=== PATIENT | male | born 1955 | race Caucasian/White ===

== ENCOUNTER 2017-05-17 15:44 | Emergency (ER) | payer BC, OTHER ==
--- NOTE | 2017-05-17 16:43 | ER Document Report ---
ED Extremity Problem, Lower - General Chief Complaint: Leg Pain Stated Complaint: PAIN IN RIGHT LEG Time Seen by Provider: 05/17/17 16:35 Mode of Arrival: Wheelchair Information source: Patient TRAVEL OUTSIDE OF THE [place] IN LAST 30 DAYS: No - HPI Patient complains to provider of: Pain Location: Leg - pt. with h/o prior blood clot R leg with stent placed several yrs. ago with c/o recurrent pain in same leg over the past 2-3 days. Denies h/ o trauma - Related Data Allergies/Adverse Reactions: No Known Allergies Allergy (Verified 05/17/17 16:03) Past Medical History - General Information source: Patient - Social History Smoking Status: Never Smoker Cigarette use (# per day): No Chew tobacco use (# tins/day): No Smoking Education Provided: No Family History: Reviewed & Not Pertinent - Past Medical History Cardiac Medical History: Reports: Hx Hypertension Denies: Hx Coronary Artery Disease, Hx Heart Attack, Hx Hypercholesterolemia Pulmonary Medical History: Denies: Hx Asthma, Hx Bronchitis, Hx COPD, Hx Pneumonia Neurological Medical History: Denies: Hx Cerebrovascular Accident, Hx Seizures Renal/ Medical History: Denies: Hx Peritoneal Dialysis GI Medical History: Denies: Hx Hepatitis, Hx Hiatal Hernia, Hx Ulcer Musculoskeltal Medical History: Reports Hx Arthritis Infectious Medical History: Denies: Hx Hepatitis Past Surgical History: Reports: Hx Orthopedic Surgery - R knee. Denies: Hx Open Heart Surgery, Hx Pacemaker - Immunizations Hx Diphtheria, Pertussis, Tetanus Vaccination: No Review of Systems - Review of Systems Constitutional: No symptoms reported EENT: No symptoms reported Cardiovascular: No symptoms reported Respiratory: No symptoms reported Gastrointestinal: No symptoms reported Musculoskeletal: See HPI, Leg swelling Physical Exam - Vital signs Vitals: Temp Pulse Resp BP Pulse Ox 98.9 F 90 20 151/86 H 96 05/17/17 16:03 05/17/17 16:03 05/17/17 16:03 05/17/17 16:03 05/17/17 16:03 - General General appearance: Appears well In distress: None - Respiratory Respiratory status: No respiratory distress Breath sounds: Normal - Extremities General upper extremity: Normal inspection General lower extremity: Other - there is TTP of the R calf diffusely with minimal STS. There is no erythema. Pt. with FROM; N/V intact Course - Vital Signs Vital signs: Temp Pulse Resp BP Pulse Ox 98.9 F 90 20 151/86 H 96 05/17/17 16:03 05/17/17 16:03 05/17/17 16:03 05/17/17 16:03 05/17/17 16:03 - Diagnostic Test Radiology reviewed: Reports reviewed - Doppler neg for DVT Discharge - Discharge Clinical Impression: Leg pain Qualifiers: Laterality: right Qualified Code(s): M79.604 - Pain in right leg Condition: Stable Additional Instructions: rest, take meds as prescribed, return if worse Prescriptions: Etodolac [Lodine] 400 mg PO BID #14 tablet Forms: Return to Work Referrals: TRICIA CORTEZ DO [NO LOCAL MD] - Follow up as needed
[2017-05-17 17:53] VITALS: BP 136/82
--- NOTE | 2017-05-17 19:09 | RADIOLOGY REPORT (SQ) ---
EXAM DESCRIPTION: VENOUS UNILATERAL LOWER COMPLETED DATE/TIME: 05/17/2017 6:58 pm REASON FOR STUDY: Pain R leg COMPARISON: None. TECHNIQUE: Dynamic and static story scale and color images acquired of the right leg venous system. S elected spectral images acquired with additional compression and augmentation maneuvers. The contrala teral common femoral vein and saphenofemoral junction were also imaged. Images stored on PACS. LIMITATIONS: None. FINDINGS: COMMON FEMORAL: Normal phasicity, compression and augmentation. No visualized echogenic ma terial on story scale. No defects on color images. FEMORAL: Normal compression and augmentation. No visualized echogenic material on story scale. No defe cts on color images. POPLITEAL: Normal compression, augmentation. No visualized echogenic material on story scale. No defec ts on color images. CALF VESSELS: Normal compression, augmentation. No visualized echogenic material on story scale. No de fects on color images. GSV and SSV: Normal compression, augmentation. No visualized echogenic material on story scale. No def ects on color images. ANY DEEP VENOUS INSUFFICIENCY: Not evaluated. ANY EVIDENCE OF POPLITEAL CYST: No. OTHER: No other significant finding. CONTRALATERAL COMMON FEMORAL VEIN AND SAPHENOFEMORAL JUNCTION: Normal phasicity, compression and augmentation. No visualized echogenic material on story scale. No de fects on color images. IMPRESSION: NO EVIDENCE OF DVT OR SVT IN THE RIGHT LEG. TECHNICAL DOCUMENTATION: JOB ID: [id number] [employer]- All Rights Reserved
== END 2017-05-17 17:52 | disposition home or self-care (01) ==
LOC: ER 15:44
DX: M79.604 Pain in right leg (principal); M79.89 Other specified soft tissue disorders; Z86.718 Personal history of other venous thrombosis and embolism; Z95.820 Peripheral vascular angioplasty status with implants and grafts; I10 Essential (primary) hypertension
CPT/HCPCS: 93971; 99283

== ENCOUNTER 2018-03-04 12:51 | Emergency (ER) | payer BC, OTHER ==
[2018-03-04] MEDS ORDERED: ACETAMINOPHEN 325 MG TABLET PO ONE (13:20)
--- NOTE | 2018-03-04 13:24 | ER Document Report ---
ED Medical Screen (RME) - General Chief Complaint: Leg Pain Stated Complaint: RIGHT LEG PAIN Time Seen by Provider: 03/04/18 13:16 Notes: RAPID MEDICAL EVALUATION DISCLOSURE I have seen this patient as part of a Rapid Medical Evaluation and, if applicable, placed any initially appropriate orders. The patient will be seen and fully evaluated, including a full history and physical exam, by a provider ( in Main ED or Fast Track) when a room becomes available. 52-year-old male here with complaints of right knee pain and swelling ongoing for the past 10 hours. States that he woke up to go to the bathroom and that as soon as he stood up, he started to have the pain. Pain is worse with movement. Pain is improved with minimizing movement and, in fact, he does not have any pain at all when he is sitting down and is not bearing weight on that side. He then reports that "I always have swelling in the right knee". He does not have any calf pain but states that it feels a little bit tight when he straightens his leg out but not otherwise. He denies any chest pain shortness of breath. Denies traumatic injury or impact. EXAM No appreciable right knee tenderness Minimal to mild right knee swelling without erythema induration fluctuance drainage TRAVEL OUTSIDE OF THE [place] IN LAST 30 DAYS: No - Related Data Allergies/Adverse Reactions: No Known Allergies Allergy (Verified 03/04/18 12:52) Past Medical History - Social History Chew tobacco use (# tins/day): No Frequency of alcohol use: Social Drug Abuse: None - Past Medical History Cardiac Medical History: Reports: Hx Hypertension Denies: Hx Coronary Artery Disease, Hx Heart Attack, Hx Hypercholesterolemia Pulmonary Medical History: Denies: Hx Asthma, Hx Bronchitis, Hx COPD, Hx Pneumonia Neurological Medical History: Denies: Hx Cerebrovascular Accident, Hx Seizures Renal/ Medical History: Denies: Hx Peritoneal Dialysis GI Medical History: Denies: Hx Hepatitis, Hx Hiatal Hernia, Hx Ulcer Musculoskeltal Medical History: Reports Hx Arthritis Infectious Medical History: Denies: Hx Hepatitis Past Surgical History: Reports: Hx Orthopedic Surgery - R knee, Hx Vascular Surgery - Right leg. Denies: Hx Open Heart Surgery, Hx Pacemaker - Immunizations Hx Diphtheria, Pertussis, Tetanus Vaccination: No Physical Exam - Vital signs Vitals: Temp Pulse Resp BP Pulse Ox 98.6 F 79 17 123/72 95 03/04/18 12:56 03/04/18 12:56 03/04/18 12:56 03/04/18 12:56 03/04/18 12:56 Course - Vital Signs Vital signs: Temp Pulse Resp BP Pulse Ox 98.6 F 79 17 123/72 95 03/04/18 12:56 03/04/18 12:56 03/04/18 12:56 03/04/18 12:56 03/04/18 12:56 Doctor's Discharge - Discharge Referrals: MANASA HOPSON MD [Primary Care Provider] - Follow up as needed
--- NOTE | 2018-03-04 14:08 | RADIOLOGY REPORT (SQ) ---
EXAM DESCRIPTION: KNEE RIGHT 3 VIEWS COMPLETED DATE/TIME: 03/04/2018 1:40 pm REASON FOR STUDY: R knee pain COMPARISON: 07/11/2016 NUMBER OF VIEWS: Three views. TECHNIQUE: AP, lateral, and sunrise patella radiographic images acquired of the right knee. LIMITATIONS: None. FINDINGS: MINERALIZATION: Normal. BONES: No acute fracture or dislocation. No worrisome bone lesions. JOINT: Large suprapatellar knee joint effusion. High-grade medial compartment joint space narrowing with old nonunited medial edge medial tibial plateau fracture. Moderate to high-grade patellofemoral compartment joint space narrowing. Bulky patellofemoral compartment osteophytes SOFT TISSUES: Popliteal artery vascular stent OTHER: No other significant finding. IMPRESSION: Advanced osteoarthritis of the right knee TECHNICAL DOCUMENTATION: JOB ID: [id number] [employer]- All Rights Reserved Reading location - IP/workstation name: [email or web address]
[2018-03-04] MEDS ORDERED: HYDROCODONE/ACETAMINOPHEN 5-325 MG TABLET PO ONE (14:37)
--- NOTE | 2018-03-04 14:38 | ER Document Report ---
HPI - HPI Patient complains to provider of: Right knee swelling Onset: This morning Onset/Duration: Persistent Quality of pain: Achy Pain Level: 4 Context: Patient presents complaining of right knee pain and swelling for the past day. Patient complains of pain with walking. Patient does have a history of previous DVT in the right lower extremity is concerned about this today. Patient denies any injury. Associated Symptoms: Other - Right leg pain. denies: Chest pain, Nonproductive cough, Productive cough Exacerbated by: Standing, Movement, Walking Relieved by: Denies Similar symptoms previously: Yes Recently seen / treated by doctor: No - ROS ROS below otherwise negative: Yes Systems Reviewed and Negative: Yes All other systems reviewed and negative - CONSTITUTIONAL Constitutional: DENIES: Fever, Chills - CARDIOVASCULAR Cardiovascular: DENIES: Chest pain - RESPIRATORY Respiratory: DENIES: Trouble Breathing, Coughing - GASTROINTESTINAL Gastrointestinal: DENIES: Nausea - MUSCULOSKELETAL Musculoskeletal: REPORTS: Extremity pain, Swelling - DERM Skin Color: Normal Skin Problems: None Past Medical History - General Information source: Patient - Social History Smoking Status: Current Every Day Smoker Chew tobacco use (# tins/day): No Smoking Education Provided: Yes Frequency of alcohol use: Social Drug Abuse: None Occupation: Retail Lives with: Spouse/Significant other Family History: Reviewed & Not Pertinent Patient has suicidal ideation: No Patient has homicidal ideation: No - Past Medical History Cardiac Medical History: Reports: Hx Hypertension Denies: Hx Coronary Artery Disease, Hx Heart Attack, Hx Hypercholesterolemia Pulmonary Medical History: Denies: Hx Asthma, Hx Bronchitis, Hx COPD, Hx Pneumonia Neurological Medical History: Denies: Hx Cerebrovascular Accident, Hx Seizures Renal/ Medical History: Denies: Hx Peritoneal Dialysis GI Medical History: Denies: Hx Hepatitis, Hx Hiatal Hernia, Hx Ulcer Musculoskeltal Medical History: Reports Hx Arthritis Infectious Medical History: Denies: Hx Hepatitis Past Surgical History: Reports: Hx Orthopedic Surgery - R knee, Hx Vascular Surgery - Right leg. Denies: Hx Open Heart Surgery, Hx Pacemaker - Immunizations Hx Diphtheria, Pertussis, Tetanus Vaccination: No Vertical Provider Document - CONSTITUTIONAL Agree With Documented VS: Yes Exam Limitations: No Limitations General Appearance: WD/WN, No Apparent Distress - INFECTION CONTROL TRAVEL OUTSIDE OF THE [place] IN LAST 30 DAYS: No - HEENT HEENT: Atraumatic, Normocephalic - NECK Neck: Normal Inspection - RESPIRATORY Respiratory: Breath Sounds Normal, No Respiratory Distress - CARDIOVASCULAR Cardiovascular: Regular Rate, Regular Rhythm Pulses: Normal: Dorsalis pedis - MUSCULOSKELETAL/EXTREMETIES Musculoskeletal/Extremeties: MAEW, FROM, Tender - NEURO Level of Consciousness: Awake, Alert, Appropriate Motor/Sensory: No Motor Deficit - DERM Integumentary: Warm, Dry, No Rash Notes: Normal skin color and temperature overlying joint Course - Vital Signs Vital signs: Temp Pulse Resp BP Pulse Ox 98.6 F 79 17 123/72 95 03/04/18 12:56 03/04/18 12:56 03/04/18 12:56 03/04/18 12:56 03/04/18 12:56 - Diagnostic Test Radiology reviewed: Reports reviewed Procedures - Immobilization Right Knee Pre-Proc Neuro Vasc Exam: Normal Immobilizer type: Jesu wrap Performed by: PCT Post-Proc Neuro Vasc Exam: Normal Alignment checked and good: Yes Discharge - Discharge Clinical Impression: Arthritis Right knee pain Qualifiers: Chronicity: unspecified Qualified Code(s): M25.561 - Pain in right knee Condition: Stable Disposition: HOME, SELF-CARE Instructions: Jesu Wrap ([facility]), Arthritis ([facility]), Oral Narcotic Medication ([facility]) Additional Instructions: Return immediately for any new or worsening symptoms Followup with your primary care provider, call tomorrow to make a followup appointment Follow-up with orthopedics for further evaluation, call for an appointment Prescriptions: Hydrocodone/Acetaminophen [[place] 5-325 Tablet] 1 each PO Q6 PRN #10 tablet PRN Reason: Forms: Return to Work Referrals: MANASA HOPSON MD [Primary Care Provider] - Follow up as needed [facility] [Provider Group] - Follow up as needed
--- NOTE | 2018-03-04 16:40 | RADIOLOGY REPORT (SQ) ---
EXAM DESCRIPTION: VENOUS UNILATERAL LOWER COMPLETED DATE/TIME: 03/04/2018 4:29 pm REASON FOR STUDY: RLE pain, hx DVT in past COMPARISON: None. TECHNIQUE: Dynamic and static story scale and color images acquired of the right leg venous system. S elected spectral images acquired with additional compression and augmentation maneuvers. The contrala teral common femoral vein and saphenofemoral junction were also imaged. Images stored on PACS. LIMITATIONS: None. FINDINGS: COMMON FEMORAL: Normal phasicity, compression and augmentation. No visualized echogenic ma terial on story scale. No defects on color images. FEMORAL: Normal compression and augmentation. No visualized echogenic material on story scale. No defe cts on color images. POPLITEAL: Normal compression, augmentation. No visualized echogenic material on story scale. No defec ts on color images. CALF VESSELS: Normal compression, augmentation. No visualized echogenic material on story scale. No de fects on color images. GSV and SSV: Normal compression, augmentation. No visualized echogenic material on story scale. No def ects on color images. ANY DEEP VENOUS INSUFFICIENCY: Not evaluated. ANY EVIDENCE OF POPLITEAL CYST: No. OTHER: No other significant finding. CONTRALATERAL COMMON FEMORAL VEIN AND SAPHENOFEMORAL JUNCTION: Normal phasicity, compression and augmentation. No visualized echogenic material on story scale. No de fects on color images. IMPRESSION: NO EVIDENCE DVT OR SVT IN THE RIGHT LEG. TECHNICAL DOCUMENTATION: JOB ID: [id number] [employer]- All Rights Reserved Reading location - IP/workstation name: [email or web address]
[2018-03-04 17:23] VITALS: BP 104/73
== END 2018-03-04 17:30 | disposition home or self-care (01) ==
LOC: ER 12:51
DX: M25.461 Effusion, right knee (principal); M17.11 Unilateral primary osteoarthritis, right knee; F17.200 Nicotine dependence, unspecified, uncomplicated; I10 Essential (primary) hypertension; Z86.718 Personal history of other venous thrombosis and embolism
CPT/HCPCS: 93971; 99284

== ENCOUNTER 2019-10-13 11:25 | Inpatient (IN) | payer BC, OTHER ==
[2019-10-13] MEDS ORDERED: IPRATROPIUM/ALBUTEROL 0.5-2.5 MG/3 ML AMPUL NEB ONE (12:30)
--- NOTE | 2019-10-13 12:32 | ER Document Report ---
ED Medical Screen (RME) - General Chief Complaint: Leg Pain Stated Complaint: RIGHT LEG PAIN/LOWER BACK PAIN Time Seen by Provider: 10/13/19 12:26 Primary Care Provider: MANASA HOPSON MD [Primary Care Provider] - Follow up as needed Notes: HPI: 64-year-old male presenting with multiple complaints. Patient complains of coughing and wheezing that have been an ongoing issue since he quit smoking in June. Complains of some tightness in the chest with coughing episodes. No fever. Patient also complaining of 1 month of upper abdominal discomfort. States that initially it would occur after eating. Patient states that in the last 2 weeks it has been more constant but does worsen still with eating. No history of abdominal surgeries. No diarrhea no vomiting. Patient also complaining of right hip and thigh pain over the last several weeks worse with walking or weightbearing. I have greeted and performed a rapid initial assessment of this patient. A comprehensive ED assessment and evaluation of the patient, analysis of test results and completion of the medical decision making process will be conducted by additional ED providers PHYSICAL EXAMINATION: GENERAL: Well-appearing, well-nourished and in mild acute distress. HEAD: Atraumatic, normocephalic. EYES: sclera anicteric, conjunctiva are normal. ENT: Moist mucous membranes. NECK: Normal range of motion LUNGS: Normal work of breathing, expiratory wheezing in all lung ramirez HEART: 2+ radial pulses bilaterally, mild tachycardia ABD: limited by positioning for exam in triage. Mild tenderness in the right and left upper quadrants on palpation EXTREMITIES: no pitting or edema. No cyanosis. NEUROLOGICAL: No focal neurological deficits. Moves all extremities spontaneously and on command. PSYCH: Normal mood, normal affect. SKIN: Warm, Dry, normal turgor, no rashes or lesions noted. TRAVEL OUTSIDE OF THE [place] IN LAST 30 DAYS: No - Related Data Allergies/Adverse Reactions: No Known Allergies Allergy (Verified 03/04/18 12:52) Past Medical History - Social History Frequency of alcohol use: None Drug Abuse: None - Past Medical History Cardiac Medical History: Reports: Hx Hypertension Denies: Hx Coronary Artery Disease, Hx Heart Attack, Hx Hypercholesterolemia Pulmonary Medical History: Denies: Hx Asthma, Hx Bronchitis, Hx COPD, Hx Pneumonia Neurological Medical History: Denies: Hx Cerebrovascular Accident, Hx Seizures Renal/ Medical History: Denies: Hx Peritoneal Dialysis GI Medical History: Denies: Hx Hepatitis, Hx Hiatal Hernia, Hx Ulcer Musculoskeltal Medical History: Reports Hx Arthritis Infectious Medical History: Denies: Hx Hepatitis Past Surgical History: Reports: Hx Orthopedic Surgery - R knee, Hx Vascular Surgery - Right leg. Denies: Hx Open Heart Surgery, Hx Pacemaker - Immunizations Hx Diphtheria, Pertussis, Tetanus Vaccination: No Physical Exam - Vital signs Vitals: Temp Pulse Resp BP Pulse Ox 98.5 F 105 H 16 183/108 H 94 10/13/19 11:58 10/13/19 11:58 10/13/19 11:58 10/13/19 11:58 10/13/19 11:58 Course - Vital Signs Vital signs: Temp Pulse Resp BP Pulse Ox 98.5 F 105 H 16 183/108 H 94 10/13/19 11:58 10/13/19 11:58 10/13/19 11:58 10/13/19 11:58 10/13/19 11:58 Doctor's Discharge - Discharge Referrals: MANASA HOPSON MD [Primary Care Provider] - Follow up as needed
[2019-10-13 13:17] LABS: ABSOLUTE BASOPHILS # (AUTO) 0.1 10^3/uL (0.0-0.2); ABSOLUTE EOSINOPHILS # (AUTO) 0.1 10^3/uL (0.0-0.6); ABSOLUTE LYMPHOCYTES (AUTO) 1.2 10^3/uL (0.5-4.7); ABSOLUTE MONOCYTES (AUTO) 0.9 10^3/uL (0.1-1.4); ABSOLUTE NEUT (AUTO) 5.6 10^3/uL (1.7-8.2); BASOPHILS % (AUTO) 0.7 % (0-2); EOSINOPHILS % (AUTO) 1.8 % (0-6); HEMATOCRIT 45.5 % (37.9-51.0); HEMOGLOBIN 15.2 g/dL (13.5-17.0); LYMPHOCYTES % (AUTO) 14.8 % (13-45); MEAN CORPUSCULAR HEMOGLOBIN 31.9 pg (27.0-33.4); MEAN CORPUSCULAR HGB CONC 33.5 g/dL (32.0-36.0); MEAN CORPUSCULAR VOLUME 95 fl (80-97); MONOCYTES % (AUTO) 11.2 % (3-13); PLATELET COUNT 293 10^3/uL (150-450); RED BLOOD COUNT 4.78 10^6/uL (4.35-5.55); RED CELL DISTRIBUTION WIDTH 13.6 % (11.5-14.0); SEGMENTED NEUTROPHILS % (AUTO) 71.5 % (42-78); TOTAL CELLS COUNTED % (AUTO) 100 %; WHITE BLOOD COUNT 7.9 10^3/uL (4.0-10.5)
[2019-10-13 13:22] LABS: APPEARANCE,URINE CLEAR; BILIRUBIN,URINE NEGATIVE (NEGATIVE); COLOR,URINE YELLOW; GLUCOSE, URINE NEGATIVE (NEGATIVE); KETONES,URINE NEGATIVE (NEGATIVE); LEUKOCYTE ESTERASE,URINE NEGATIVE (NEGATIVE); NITRITE,URINE NEGATIVE (NEGATIVE); PROTEIN,URINE 30 mg/dL (NEGATIVE); URINE SPECIFIC GRAVITY 1.019
[2019-10-13 13:34] LABS: ALBUMIN 4.3 g/dL (3.5-5.0); ALKALINE PHOSPHATASE 122 U/L (38-126); ANION GAP 7 (5-19); ASPARTATE AMINO TRANSFERASE 27 U/L (17-59); BILIRUBIN,TOTAL 0.6 mg/dL (0.2-1.3); BLOOD UREA NITROGEN 14 mg/dL (7-20); CALCIUM 9.7 mg/dL (8.4-10.2); CARBON DIOXIDE 33 mmol/L (22-30); CHLORIDE 99 mmol/L (98-107); GLUCOSE 100 mg/dL (75-110); POTASSIUM 5.5 mmol/L (3.6-5.0); TOTAL PROTEIN 7.5 g/dL (6.3-8.2)
--- NOTE | 2019-10-13 13:40 | RADIOLOGY REPORT (SQ) ---
EXAM DESCRIPTION: CHEST 2 VIEWS COMPLETED DATE/TIME: 10/13/2019 1:20 pm REASON FOR STUDY: cough COMPARISON: 02/07/2012 EXAM PARAMETERS: NUMBER OF VIEWS: two views TECHNIQUE: Digital Frontal and Lateral radiographic views of the chest acquired. RADIATION DOSE: NA LIMITATIONS: none FINDINGS: LUNGS AND PLEURA: Subsegmental airspace disease posterior costophrenic angle, probably the left lower lobe. There is a background of chronic interstitial lung disease. No effusions. MEDIASTINUM AND HILAR STRUCTURES: PE HEART AND VASCULAR STRUCTURES: Heart normal size. No evidence for failure. BONES: No acute findings. HARDWARE: None in the chest. OTHER: No other significant finding. IMPRESSION: Left lower lobe pneumonia. TECHNICAL DOCUMENTATION: JOB ID: [id number] [employer]- All Rights Reserved Reading location - IP/workstation name: [email or web address]
[2019-10-13 13:46] LABS: NT PRO BNP 1190 pg/mL (<125)
[2019-10-13 13:51] LABS: TROPONIN I < 0.012 ng/mL
--- NOTE | 2019-10-13 15:42 | RADIOLOGY REPORT (SQ) ---
EXAM DESCRIPTION: HIP RIGHT AP/LATERAL COMPLETED DATE/TIME: 10/13/2019 2:06 pm REASON FOR STUDY: hip pain. Right hip pain. COMPARISON: CT lumbar spine same date. NUMBER OF VIEWS: Two views. TECHNIQUE: AP pelvis and additional frog-leg view of the right hip. LIMITATIONS: None. FINDINGS: MINERALIZATION: Normal. RIGHT HIP: No fracture or dislocation. The lytic bone lesions seen on prior CT are not detectable on radiograph. There is joint space narrowing with small marginal osteophytes. LEFT HIP: Joint space narrowing with marginal osteophytosis and subchondral sclerosis at the femoroac etabular joint. No acute fracture. Lytic bone lesions previously described on CT are not definitely identified on radiograph. PUBIS AND ISCHIUM: Previously described lytic bone lesions on CT are not definitely identified on rad iograph. PELVIS: Previously described lytic bone lesions on CT are not definitely identified on radiograph. SACRUM: Previously described lytic bone lesions on CT are not definitely identified on radiograph. LOWER LUMBAR SPINE: No fracture or dislocation. Previously described lytic bone lesions are not yessi rly identified on radiograph. No significant disc disease. SOFT TISSUES: No findings. OTHER: No other significant finding. IMPRESSION: 1. No acute fracture or dislocation of the pelvis or hips. 2. Moderate osteoarthritis bilateral femoroacetabular joints. 3. Previously described lytic bone lesions in the sacrum, iliac bones, and lower lumbar spine are rad iographically occult. COMMENT: Findings discussed with Dr. Evans on 10/13/2019 at 1534 hours. TECHNICAL DOCUMENTATION: JOB ID: [id number] [employer]- All Rights Reserved Reading location - IP/workstation name: [email or web address]
--- NOTE | 2019-10-13 15:44 | RADIOLOGY REPORT (SQ) ---
EXAM DESCRIPTION: CT LUMBAR SPINE WITHOUT COMPLETED DATE/TIME: 10/13/2019 1:51 pm REASON FOR STUDY: right sciatica. Cough. Right hip pain. COMPARISON: Chest radiograph same date. Right hip radiograph same date. Chest radiograph, 2. TECHNIQUE: Axial images acquired through the lumbar spine without intravenous contrast. Images revi ewed with lung, soft tissue and bone windows. Reconstructed coronal and sagittal MPR images reviewed . All images stored on PACS. All CT scanners at this facility use dose modulation, iterative reconstruction, and/or weight based d osing when appropriate to reduce radiation dose to as low as reasonably achievable (ALARA). [facility]: Dose Right [facility]: CareDose [facility]: Dose Right [facility]: Teradose 4D [facility]: [employer] RADIATION DOSE: mGy. LIMITATIONS: None. FINDINGS: SEGMENTATION: Normal. No transitional anatomy. ALIGNMENT: Normal. VERTEBRAL BODIES: There is partial visualization of a age-indeterminate compression fracture of the T 12 vertebral body. On axial images, there is a permeative appearance of the T12 vertebral body with associated soft tissue component extending into the paraspinous process suggestive of an underlying l ytic bone lesion leading to pathologic fracture. No retropulsed fracture fragments. The lumbar vert ebral bodies are intact with no loss of intervertebral body height. Chronic pars interarticularis de fects at L5 with 1.3 cm of anterolisthesis L5 on S1. Mixed lucent and sclerotic 2.1 cm lesion in the left sacrum with rings and arcs type central calcifications, suggestive an enchondroma or low grade chondrosarcoma. Indeterminate mixed lytic and sclerotic lesion at the central sacrum between the S1 foramen measures 3.4 x 3.3 cm, with some central calcification but predominantly lucent appearance an d ill-defined margins, somewhat suspicious. There is a highly suspicious lytic bone lesion measuring 1.7 x 1.8 cm at the right iliac bone extending to the right sacroiliac joint with cortical destructi on and extramedullary extension of soft tissue. Similar expansile lytic bone lesion at the left pedi ankit measures 1.5 cm with extreme thinning of the lateral cortex and slight extra medullary extension of soft tissue to the adjacent paraspinous region at L2. There is an indeterminate lucent lesion wit h sclerotic margins measuring 2.8 cm in the left iliac bone. A few scattered indeterminate sclerotic bone lesions in the iliac bones bilaterally. Indeterminate 9 mm lucent lesion in the right sacral ala, 7 mm lucent lesion in the posterior right iliac bone, and very subtle sclerotic bone lesion in t he left iliac wing. DISCS: Multilevel degenerative disc disease with loss of intervertebral disc height at multiple level s. Small disc bulge at L4-L5 without significant spinal canal stenosis. HARDWARE: None in the spine. VISUALIZED RIBS: No fractures. SOFT TISSUES: There is a partially calcified exophytic 1.9 cm right renal cortical lesion which is in determinate. OTHER: No other significant finding. IMPRESSION: 1. Acute probable pathologic fracture of T12. No retropulsed fracture fragments. 2. 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 COMMENT: Findings discussed with Dr. Evans on 10/13/2019 at 1534 hours TECHNICAL DOCUMENTATION: JOB ID: [id number] Quality ID # [id number]: Final reports with documentation of one or more dose reduction techniques (e.g., Au tomated exposure control, adjustment of the mA and/or kV according to patient size, use of iterative reconstruction technique) 2010 [facility]- All Rights Reserved Reading location - IP/workstation name: [email or web address]
--- NOTE | 2019-10-13 16:14 | RADIOLOGY REPORT (SQ) ---
EXAM DESCRIPTION: U/S ABDOMEN LIMITED W/O DOP COMPLETED DATE/TIME: 10/13/2019 3:51 pm REASON FOR STUDY: upper abd pain COMPARISON: None. TECHNIQUE: Dynamic and static grayscale images acquired of the abdomen and recorded on PACS. Additio nal selected color Doppler and spectral images recorded. LIMITATIONS: Limited visualization. Poor acoustical window FINDINGS: PANCREAS: Limited visualization. no masses seen LIVER: Normal size Mild fatty infiltration. No focal masses. LIVER VASCULATURE: Normal directional flow of the main portal vein and hepatic veins. GALLBLADDER: Sludge. No stones. Normal wall thickness. No pericholecystic fluid. ULTRASOUND-DETECTED KELLY'S SIGN: Negative. INTRAHEPATIC DUCTS AND COMMON DUCT: CBD and intrahepatic ducts normal caliber. No filling defects. INFERIOR VENA CAVA: Normal flow. AORTA: No aneurysm. RIGHT KIDNEY: Normal size. Normal echogenicity. No solid or suspicious masses. No hydronephros is. No calcifications. PERITONEAL AND RIGHT PLEURAL SPACE: No ascites or effusions. OTHER: No other significant findings. IMPRESSION: Fatty liver. No acute findings. TECHNICAL DOCUMENTATION: JOB ID: [id number] [employer]- All Rights Reserved Reading location - IP/workstation name: [email or web address]
--- NOTE | 2019-10-13 16:23 | EKG REPORT ---
SEVERITY:- BORDERLINE ECG - SINUS RHYTHM BORDERLINE PROLONGED QT INTERVAL : Confirmed by: Daily Shell MD 13-Oct-2019 16:22:43
[2019-10-13] MEDS ORDERED: CEFTRIAXONE INJ 1000 MG VIAL IV ONE (16:30)
[2019-10-13] MEDS ORDERED: NORMAL SALINE 1000 ML 1,000 ML IV ONE (16:32)
--- NOTE | 2019-10-13 18:05 | ER Document Report ---
Entered by ANIKA CLARK SCRIBE 10/13/19 1422 Acting as scribe for:MALORIE SONI MD ED General - General Chief Complaint: Leg Pain Stated Complaint: RIGHT LEG PAIN/LOWER BACK PAIN Time Seen by Provider: 10/13/19 12:26 Primary Care Provider: MANASA HOPSON MD [Primary Care Provider] - Follow up as needed Information source: Patient Notes: 64 year old male presents to the emergency department with lower back pain and right leg pain that began last June (3 1/2 months ago). Patient reports that his right leg "feels tight" and is having trouble walking due to the pain. Patient describes his lower back pain as constant, and a dull ache. He recalls t hat back pain is worse with coughing. He cannot recall any injury to cause pain in either back or right leg. Patient uses cane on occasion. Patient mentions that he has been wheezing since he quit smoking in June,. TRAVEL OUTSIDE OF THE [place] IN LAST 30 DAYS: No - Related Data Allergies/Adverse Reactions: No Known Allergies Allergy (Verified 03/04/18 12:52) Past Medical History - General Information source: Patient - Social History Smoking Status: Former Smoker - Quit June, Cigarette use (# per day): No Chew tobacco use (# tins/day): No Frequency of alcohol use: None Drug Abuse: None Family History: Reviewed & Not Pertinent Patient has suicidal ideation: No Patient has homicidal ideation: No - Past Medical History Cardiac Medical History: Reports: Hx Hypertension Musculoskeletal Medical History: Reports Hx Arthritis Past Surgical History: Reports: Hx Orthopedic Surgery - R knee, Hx Vascular Surgery - Right leg - Immunizations Hx Diphtheria, Pertussis, Tetanus Vaccination: No Review of Systems - Review of Systems Constitutional: No symptoms reported EENT: No symptoms reported Cardiovascular: No symptoms reported Respiratory: No symptoms reported Gastrointestinal: No symptoms reported Genitourinary: No symptoms reported Male Genitourinary: No symptoms reported Musculoskeletal: See HPI, Back pain - Lower, Other - Right leg pain Skin: No symptoms reported Hematologic/Lymphatic: No symptoms reported Neurological/Psychological: No symptoms reported -: Yes All other systems reviewed and negative Physical Exam - Vital signs Vitals: Temp Pulse Resp BP Pulse Ox 98.5 F 105 H 16 183/108 H 94 10/13/19 11:58 10/13/19 11:58 10/13/19 11:58 10/13/19 11:58 10/13/19 11:58 - Notes Notes: Physical Exam: General: Alert, appears well. HEENT: Normocephalic. Atraumatic. PERRL. Extraocular movements intact. Oropharynx clear. Neck: Supple. Non-tender. Respiratory: Wheezing bilaterally. No respiratory distress. Cardiovascular: Regular rate and rhythm. Abdominal: Normal Inspection. Non-tender. No distension. Normal Bowel Sounds. Back: No gross abnormalities. Extremities: Moves all four extremities. Upper extremities: Normal inspection. Normal ROM. Lower extremities: Normal inspection. No edema. Normal ROM. Neurological: Normal cognition. AAOx4. Normal speech. Psychological: Normal affect. Normal Mood. Skin: Warm. Dry. Normal color. Course - Re-evaluation Re-evalutation: 10/13/19 16:41 Patient is resting comfortably right now not showing signs of distress breathing treatment have been given for his bronchospasm on arrival. Less wheezing at this time. Sats ranging 90 to 95%. Patient has pneumonia on chest x-ray in the left lower lobe. Blood cultures and IV Rocephin has been ordered and IV fluids. Also patient had a CT scan of his lumbar spine and a right hip x-ray. We have learned that patient has a pathologic fracture at vertebral body T12 without any encroachment on the spinal cord. Patient also has multiple lytic lesions throughout his pelvis and sacral area. Most likely patient has metastatic ca rcinoma primary unknown at this time. X-ray did not show any tumor mass on plain film. It is a 4 pack cigarette smoker for multiple years he quit smoking in June 2019. - Vital Signs Vital signs: Temp Pulse Resp BP Pulse Ox 98.7 F 101 H 16 162/104 H 91 L 10/13/19 15:11 10/13/19 15:11 10/13/19 11:58 10/13/19 15:11 10/13/19 15:11 - Laboratory Result Diagrams: 10/13/19 12:53 10/13/19 12:53 Laboratory results interpreted by me: 10/13/19 10/13/19 10/13/19 12:53 12:53 12:53 Potassium 5.5 H Carbon Dioxide 33 H NT-Pro-B Natriuret Pep 1190 H Urine Protein 30 H Urine Urobilinogen 2.0 H - Diagnostic Test Radiology reviewed: Image reviewed, Reports reviewed Radiology results interpreted by me: 10/13/19 16:44 Ultrasound right upper quadrant disclosed a fatty liver and no other acute process This x-ray shows left lower lobe infiltrate some chronic interstitial markings. No lung mass noted CT spine lumbar sacral area shows pathologic lytic fracture in T12 vertebral body. Not encroaching on the spinal cord. Plain film x-ray of right hip pelvis region shows multiple metastatic lesions in his sacral pelvic bones Discharge - Discharge Clinical Impression: Left lower lobe pneumonia, Pathologic fracture, Metastatic cancer to bone, Acute bronchospasm Condition: Fair Disposition: ADMITTED INPATIENT Admitting Provider: rPudencio (Hospitalist) Unit Admitted: Telemetry Referrals: MANASA HOPSON MD [Primary Care Provider] - Follow up as needed I personally performed the services described in the documentation, reviewed and edited the documentation which was dictated to the scribe in my presence, and it accurately records my words and actions.
--- NOTE | 2019-10-13 18:05 | PDOC H&P ---
History of Present Illness Admission Date/PCP: MANASA HOPOSN MD History of Present Illness: JIN VELAZQUEZ is a 64 year old male who up until this past June was smoking 3 to 4 packs of cigarettes a day, and had been smoking like that for couple years, and prior to that had been smoking usually a pack a day or more since he was 19 years old, and he presented to the ER today complaining of back and right hip pain. He said he had worsening pain in his back and his right hip for couple of days. He does not remember falling at home. He has had worsening pain in his lower back for a few months. He said he quit smoking back in June because he was having such hard coughing fits. He said he is not had any hemoptysis. He has not had any night sweats. He apparently was wheezing a little bit when he first came into the ER but they gave him a nebulizer treatment he has been fine since then. He is hypertensive and he said that he is not had his blood pressure medication in over a year because his doctor left the area and he has not gotten a new one. He said the only other thing he was getting was a medicine for cholesterol. He has not had any bowel or bladder in continence. He has not had any saddle anesthesia. He was noted to have a T12 compression fracture and it looked to be a pathological fracture, along with numerous other bony lesions that appeared metastatic, and the spine and in the pelvis. Past Medical History Cardiac Medical History: Reports: Hypertension Denies: Coronary Artery Disease, Myocardial Infarction, Hyperlipidema Pulmonary Medical History: Denies: Asthma, Bronchitis, Chronic Obstructive Pulmonary Disease (COPD), Pneumonia Neurological Medical History: Denies: Seizures GI Medical History: Denies: Hepatitis, Hiatal Hernia Musculoskeltal Medical History: Reports: Arthritis Hematology: Denies: Anemia, Sickle Cell Disease Past Surgical History Past Surgical History: Reports: Orthopedic Surgery - R knee, Vascular Surgery - Right leg Denies: Pacemaker Social History Smoking Status: Former Smoker Family History Family History: Reviewed & Not Pertinent, Arthritis, COPD, Hypertension Parental Family History Reviewed: Yes Children Family History Reviewed: Yes Sibling(s) Family History Reviewed.: Yes Medication/Allergy Allergies/Adverse Reactions: No Known Allergies Allergy (Verified 03/04/18 12:52) Review of Systems All systems: reviewed and no additional remarkable complaints except as stated - All systems were reviewed and were negative except as noted in the HPI Physical Exam Vital Signs: Temp Pulse Resp BP Pulse Ox 98.7 F 101 H 16 162/104 H 91 L 10/13/19 15:11 10/13/19 15:11 10/13/19 11:58 10/13/19 15:11 10/13/19 15:11 Intake & Output 10/12/19 10/13/19 10/14/19 06:59 06:59 06:59 Weight 81.1 kg General appearance: PRESENT: no acute distress, cooperative, disheveled Head exam: PRESENT: atraumatic, normocephalic Eye exam: PRESENT: EOMI, PERRLA. ABSENT: conjunctival injection, nystagmus, scleral icterus Ear exam: PRESENT: normal external ear exam Mouth exam: PRESENT: dry mucosa, neck supple Teeth exam: PRESENT: poor dentation Throat exam: ABSENT: post pharyngeal erythema Neck exam: PRESENT: full ROM. ABSENT: carotid bruit, JVD, lymphadenopathy, me ningismus, tenderness, thyromegaly Respiratory exam: PRESENT: clear to auscultation benedicto, decreased breath sounds, symmetrical, unlabored. ABSENT: accessory muscle use, prolonged expiratory phas, rales, retraction, rhonchi, tachypnea, wheezes Cardiovascular exam: PRESENT: RRR, +S1, +S2 Pulses: PRESENT: normal carotid pulses Vascular exam: PRESENT: normal capillary refill GI/Abdominal exam: PRESENT: normal bowel sounds, soft. ABSENT: distended, guarding, rebound, tenderness Extremities exam: ABSENT: clubbing, pedal edema Musculoskeletal exam: PRESENT: normal inspection. ABSENT: deformity Neurological exam: PRESENT: alert, awake, oriented to person, oriented to place, oriented to time, oriented to situation, CN II-XII grossly intact. ABSENT: motor sensory deficit Psychiatric exam: PRESENT: appropriate affect, normal mood Skin exam: PRESENT: dry, warm Results Laboratory Results: 10/13/19 12:53 10/13/19 12:53 10/13/19 10/13/19 10/13/19 12:53 12:53 12:53 WBC 7.9 RBC 4.78 Hgb 15.2 Hct 45.5 MCV 95 MCH 31.9 MCHC 33.5 RDW 13.6 Plt Count 293 Seg Neutrophils % 71.5 Sodium 139.4 Potassium 5.5 H Chloride 99 Carbon Dioxide 33 H Anion Gap 7 BUN 14 Creatinine 0.64 Est GFR ( Amer) > 60 Glucose 100 Calcium 9.7 Total Bilirubin 0.6 AST 27 Alkaline Phosphatase 122 Total Protein 7.5 Albumin 4.3 Lipase 181.1 Urine Color YELLOW Urine Appearance CLEAR Urine pH 9.0 Ur Specific [place] 1.019 Urine Protein 30 H Urine Glucose (UA) NEGATIVE Urine Ketones NEGATIVE Urine Blood NEGATIVE Urine Nitrite NEGATIVE Ur Leukocyte Esterase NEGATIVE Urine WBC (Auto) 0 Urine RBC (Auto) 1 10/13/19 12:53 Troponin I < 0.012 NT-Pro-B Natriuret Pep 1190 H Impressions: Chest X-Ray 10/13/19 12:29 IMPRESSION: Left lower lobe pneumonia. Abdomen Ultrasound 10/13/19 12:30 IMPRESSION: Fatty liver. No acute findings. Lumbar Spine CT 10/13/19 14:24 IMPRESSION: 1. Acute probable pathologic fracture of T12. No retropulsed fracture fragments. 2. 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 Hip/Pelvis X-Ray 10/13/19 14:28 IMPRESSION: 1. No acute fracture or dislocation of the pelvis or hips. 2. Moderate osteoarthritis bilateral femoroacetabular joints. 3. Previously described lytic bone lesions in the sacrum, iliac bones, and lower lumbar spine are radiographically occult. Assessment and Plan - Diagnosis (1) T12 compression fracture Qualifiers: Encounter type: initial encounter Qualified Code(s): S22.080A - Wedge compression fracture of T11-T12 vertebra, initial encounter for closed fracture Is this a current diagnosis for this admission?: Yes (2) Bone lesion Is this a current diagnosis for this admission?: Yes - Plan Summary Summary: I am going to get a CT scan of the head, chest, abdomen, and pelvis. We will also order a serum protein electrophoresis along with free light chains. It is noted that his creatinine and his calcium are normal. His hemoglobin is also normal. Once we get some more information, we will get an oncology consultation. Have ordered physical therapy evaluation. We will start him on some lisinopril because this is what he was taking as an outpatient. Have also ordered some PRN hydralazine. - Time Time Spent with patient: 35 or more minutes - Inpatient Certification Based on my medical assessment, after consideration of the patient's comorbidities, presenting symptoms, or acuity I expect that the services needed warrant INPATIENT care.: Yes I certify that my determination is in accordance with my understanding of Medicare's requirements for reasonable and necessary INPATIENT services [42 CFR 412.3e].: Yes Medical Necessity: Need for Pain Control, Risk of Complication if Not Cared For in Hospital
[2019-10-13] MEDS: LISINOPRIL 10 MG TABLET PO SCH (18:36)
--- NOTE | 2019-10-13 19:31 | RADIOLOGY REPORT (SQ) ---
EXAM DESCRIPTION: CT HEAD WITH COMPLETED DATE/TIME: 10/13/2019 7:19 pm REASON FOR STUDY: bony lesions, metastatic workup COMPARISON: None. TECHNIQUE: Axial images acquired through the brain without and with intravenous contrast. Images re viewed with bone, brain and subdural windows. Additional sagittal and coronal reconstructions were g enerated. Images stored on PACS. All CT scanners at this facility use dose modulation, iterative reconstruction, and/or weight based d osing when appropriate to reduce radiation dose to as low as reasonably achievable (ALARA). [facility]: Dose Right [facility]: CareDose [facility]: Dose Right [facility]: Teradose 4D [facility]: PHRQL CONTRAST TYPE AND DOSE: 93 mL of IV Omnipaque 300 RENAL FUNCTION: Creatinine 0.64 RADIATION DOSE: CT Rad equipment meets quality standard of care and radiation dose reduction techniq ues were employed. CTDIvol: 17.0 - 73.3 mGy. DLP: 5104 mGy-cm.. LIMITATIONS: None. FINDINGS: VENTRICLES: Normal size and contour. CEREBRUM: No masses. No hemorrhage. No midline shift. Normal story/white matter differentiation. No ev idence for acute infarction. No enhancing lesions. CEREBELLUM: No masses. No hemorrhage. No alteration of density. No evidence for acute infarction. No enhancing lesions. EXTRA-AXIAL SPACES: No fluid collections. No enhancing lesions. ORBITS AND GLOBE: No intra- or extraconal masses. Normal contour of globe without masses. CALVARIUM: No fracture. PARANASAL SINUSES: No fluid or mucosal thickening. SOFT TISSUES: No mass or hematoma. OTHER: No other significant finding. IMPRESSION: NORMAL BRAIN CT WITHOUT AND WITH CONTRAST. EVIDENCE OF ACUTE STROKE: NO. TECHNICAL DOCUMENTATION: JOB ID: [id number] Quality ID # [id number]: Final reports with documentation of one or more dose reduction techniques (e.g., Au tomated exposure control, adjustment of the mA and/or kV according to patient size, use of iterative reconstruction technique) 2010 [employer]- All Rights Reserved Reading location - IP/workstation name: [id number]
--- NOTE | 2019-10-13 20:00 | RADIOLOGY REPORT (SQ) ---
EXAM DESCRIPTION: CT CHEST WITH; CT ABD/PELVIS WITH IV ONLY COMPLETED DATE/TIME: 10/13/2019 7:19 pm REASON FOR STUDY: bony lesions, metastatic workup COMPARISON: CT lumbar spine 10/13/2019 CONTRAST TYPE AND DOSE: contrast/concentration: Isovue 300.00 mg/ml; Total Contrast Delivered: 93.0 ml; Total Saline Delivered: 64.5 ml RENAL FUNCTION: Creatinine 0.6 TECHNIQUE: CT scan of the chest performed using helical scanning technique with dynamic intravenous contrast injection. Images reviewed with lung, soft tissue and bone windows. Reconstructed coronal a nd sagittal MPR images reviewed. All images stored on PACS. CT scan of the abdomen and pelvis performed with intravenous and without oral contrastusing helical s lashanda technique with dynamic intravenous contrast injection. Images reviewed with lung, soft tissu e and bone windows. Reconstructed coronal and sagittal MPR images reviewed. Delayed images for eval uation of the urinary system also acquired and evaluated. All images stored on PACS. All CT scanners at this facility use dose modulation, iterative reconstruction, and/or weight based d osing when appropriate to reduce radiation dose to as low as reasonably achievable (ALARA). [facility]: Dose Right [facility]: CareDose [facility]: Dose Right [facility]: Teradose 4D [facility]: [employer] RADIATION DOSE: 39 mGy . LIMITATIONS: None. FINDINGS: CHEST: LUNGS AND PLEURA: A 3 x 3 cm spiculated mass is present right lower lobe. Adjacent multiple subcenti meter right lower lobe nodules are present with thickened interlobular septa from lymphangitic spread of tumor. No pleural effusion. Left lung unremarkable. No pneumothorax. HILAR AND MEDIASTINAL STRUCTURES: There is mediastinal adenopathy as follows: 9 mm short axis right level 4R lymph node axial image 19 1.7 x 1.6 cm right hilar lymph node axial image 26 1.5 x 1.1 cm left hilar lymph node axial image 28 2.4 x 1.6 cm sub- carinal lymph node axial image 28 HEART AND VASCULAR STRUCTURES: No aneurysm or dissection. No central pulmonary emboli. No pericardi al effusion. Heavy coronary artery calcifications HARDWARE: None. THYROID AND OTHER SOFT TISSUES: No masses. No adenopathy. BONES: Multiple lytic lesions throughout the thoracic spine, heavy is burden of disease is in the ant erior T3, T5 and T8 vertebral bodies. There are central upper endplate compressions at T9 and T10, a nd a 25% pathologic compression fracture at T12. Multiple pathologic rib fractures are present. OTHER: No other significant finding. ABDOMEN AND PELVIS: LIVER: 2.2 cm metastatic lesions sub- diaphragmatic surface left lobe liver axial image 81. 2.2 cm m etastatic lesion left lobe liver near the falciform ligament axial image 92 SPLEEN: Normal size. No focal lesions. PANCREAS: No masses. No significant calcifications. No adjacent inflammation or peripancreatic fluid collections. Pancreatic duct not dilated. GALLBLADDER: No identified stones by CT criteria. No inflammatory changes to suggest cholecystitis. ADRENAL GLANDS: No significant masses or asymmetry. RIGHT KIDNEY AND URETER: No solid masses. Benign peripherally calcified 2.6 cm right upper pole beatrice ical cyst. No hydronephrosis or hydroureter. LEFT KIDNEY AND URETER: No solid masses. No significant calcification. No hydronephrosis or hydrouret er. AORTA AND VESSELS: No aneurysm. No dissection. Renal arteries, SMA, celiac without stenosis. RETROPERITONEUM: No retroperitoneal adenopathy, hemorrhage or masses. BOWEL AND PERITONEAL CAVITY: No masses or inflammatory changes. No free fluid or peritoneal masses. APPENDIX: Normal. ABDOMINAL WALL: No masses. No hernias. PELVIS: No mass or free fluid. Normal bladder. BONES: Diffuse bony metastatic disease through the pelvis. Bilateral spondylolysis at L5 with listhe sis. OTHER: No other significant finding. IMPRESSION: Spiculated right lower lobe mass worrisome for primary lung tumor with diffuse metastati c disease as above. TECHNICAL DOCUMENTATION: JOB ID: [id number] Quality ID # [id number]: Final reports with documentation of one or more dose reduction techniques (e.g., Au tomated exposure control, adjustment of the mA and/or kV according to patient size, use of iterative reconstruction technique) 2010 [employer]- All Rights Reserved Reading location - IP/workstation name: [email or web address]
[2019-10-13] MEDS: HEPARIN SOD (PORCINE) 5,000 UNIT/ML 1 ML VIAL SUBCUT SCH (21:07)
[2019-10-13] MEDS: HYDRALAZINE HCL INJ/PF 20 MG/1 ML SDV IV PRN (21:11)
[2019-10-13] MEDS: OXYCODONE-ACETAMINOPHEN 5-325 MG TABLET PO PRN (21:11)
[2019-10-14] MEDS: OXYCODONE-ACETAMINOPHEN 5-325 MG TABLET PO PRN ×4 (05:17→23:23)
[2019-10-14] MEDS: HEPARIN SOD (PORCINE) 5,000 UNIT/ML 1 ML VIAL SUBCUT SCH ×3 (05:18→21:50)
[2019-10-14] MEDS: IPRATROPIUM/ALBUTEROL 0.5-2.5 MG/3 ML AMPUL NEB PRN (06:02)
[2019-10-14 08:53] LABS: HEMATOCRIT 38.1 % (37.9-51.0); MEAN CORPUSCULAR HEMOGLOBIN 32.5 pg (27.0-33.4); MEAN CORPUSCULAR VOLUME 96 fl (80-97); PLATELET COUNT 223 10^3/uL (150-450); RED BLOOD COUNT 3.99 10^6/uL (4.35-5.55); RED CELL DISTRIBUTION WIDTH 13.7 % (11.5-14.0)
[2019-10-14 08:56] LABS: HEMOGLOBIN 12.9 g/dL (13.5-17.0)
[2019-10-14 09:16] LABS: ANION GAP 10 (5-19); BLOOD UREA NITROGEN 11 mg/dL (7-20); CALCIUM 8.7 mg/dL (8.4-10.2); CARBON DIOXIDE 27 mmol/L (22-30); CHLORIDE 101 mmol/L (98-107); GLUCOSE 95 mg/dL (75-110)
[2019-10-14 09:32] LABS: POTASSIUM 3.6 mmol/L (3.6-5.0)
[2019-10-14] MEDS: LISINOPRIL 10 MG TABLET PO SCH (10:25)
--- NOTE | 2019-10-14 17:15 | PDOC CONSULTATION ---
Consultation Consult Date: 10/14/19 Provider Consulted: HALIMA MURILLO Consult reason:: Hematology/Oncology consult was requested for patient with new lung mass with liver, bone involvement. Presumed cancer. History of Present Illness Admission Date/PCP: 10/13/19 18:12 MANASA HOPSON MD History of Present Illness: JIN VELAZQUEZ is a 64 year old male with a longstanding history of cigarette smoking who presented to the ED with complaints of pain in his abdomen and back over the past few months. It was progressively worse with difficulty walking. He was using a cane. He denies dyspnea, but has had some cough. He quit smoking in Jun. Past Medical History Cardiac Medical History: Reports: Hypertension Denies: Coronary Artery Disease, Myocardial Infarction, Hyperlipidema Pulmonary Medical History: Denies: Asthma, Bronchitis, Chronic Obstructive Pulmonary Disease (COPD), Pneumonia Neurological Medical History: Denies: Seizures GI Medical History: Denies: Hepatitis, Hiatal Hernia Musculoskeltal Medical History: Reports: Arthritis Hematology: Denies: Anemia, Sickle Cell Disease Past Surgical History Past Surgical History: Reports: Appendectomy, Orthopedic Surgery - R knee, Vascular Surgery - Right leg Denies: Pacemaker Social History Information Source: Patient Occupation: [employer] Lives with: Family Smoking Status: Former Smoker Frequency of Alcohol Use: Heavy Hx Recreational Drug Use: No Past Social History Note: with 2 kids, 3 GKs and 1 dog, 2 cats. - Advance Directive Resuscitation Status: Full Code Family History Parental Family History Reviewed: Yes - Mother with DM and myocarditis age 32. Father 42 with CAD. Children Family History Reviewed: No Sibling(s) Family History Reviewed.: Yes - 2 sisters with DM. Medication/Allergy Home Medications: No Home Medications 10/13/19 Allergies/Adverse Reactions: No Known Allergies Allergy (Verified 03/04/18 12:52) Review of Systems Constitutional: ABSENT: fever(s), headache(s), weakness Ears: ABSENT: hearing changes Nose, Mouth, and Throat: ABSENT: sore throat Cardiovascular: PRESENT: chest pain Respiratory: ABSENT: dyspnea Gastrointestinal: PRESENT: abdominal pain, constipation. ABSENT: nausea Musculoskeletal: PRESENT: back pain Integumentary: ABSENT: rash Neurological: ABSENT: numbness Hematologic/Lymphatic: ABSENT: easy bleeding Physical Exam Vital Signs: Temp Pulse Resp BP Pulse Ox 98.3 F 91 16 145/94 H 93 02/05/20 13:10 10/14/19 16:19 10/14/19 16:19 10/14/19 13:10 10/14/19 16:19 Intake & Output 10/13/19 10/14/19 10/15/19 06:59 06:59 06:59 Intake Total 1120 Balance 1120 Weight 83.3 kg General appearance: PRESENT: no acute distress, well-developed, well-nourished Exam: 64 year old male. Head exam: PRESENT: atraumatic, normocephalic Eye exam: PRESENT: EOMI Mouth exam: PRESENT: tongue midline Neck exam: ABSENT: lymphadenopathy, tenderness Respiratory exam: PRESENT: unlabored, wheezes Cardiovascular exam: PRESENT: other - heart sounds obscured GI/Abdominal exam: PRESENT: soft. ABSENT: organolmegaly, tenderness Extremities exam: PRESENT: other - Right knee deformity with "bowed leg". ABSENT: pedal edema Musculoskeletal exam: PRESENT: deformity Neurological exam: PRESENT: alert, awake, oriented to person, oriented to place, oriented to time, oriented to situation Psychiatric exam: PRESENT: appropriate affect Skin exam: PRESENT: normal color Results Laboratory Results: 10/14/19 08:13 10/14/19 08:13 10/14/19 10/14/19 10/14/19 08:13 08:13 13:22 WBC 6.0 RBC 3.99 L Hgb 12.9 L D Hct 38.1 MCV 96 MCH 32.5 MCHC 34.0 RDW 13.7 Plt Count 223 Sodium 137.8 Potassium 3.6 D Chloride 101 Carbon Dioxide 27 Anion Gap 10 BUN 11 Creatinine 0.51 L Est GFR ( Amer) > 60 Glucose 95 Calcium 8.7 Prostate Specific Ag 4.850 H 10/13/19 12:53 Troponin I < 0.012 NT-Pro-B Natriuret Pep 1190 H Impressions: Abdomen/Pelvis CT 10/13/19 00:00 IMPRESSION: Spiculated right lower lobe mass worrisome for primary lung tumor with diffuse metastatic disease as above. Chest CT 10/13/19 00:00 IMPRESSION: Spiculated right lower lobe mass worrisome for primary lung tumor with diffuse metastatic disease as above. Head CT 10/13/19 00:00 IMPRESSION: NORMAL BRAIN CT WITHOUT AND WITH CONTRAST. EVIDENCE OF ACUTE STROKE: NO. Chest X-Ray 10/13/19 12:29 IMPRESSION: Left lower lobe pneumonia. Abdomen Ultrasound 10/13/19 12:30 IMPRESSION: Fatty liver. No acute findings. Lumbar Spine CT 10/13/19 14:24 IMPRESSION: 1. Acute probable pathologic fracture of T12. No retropulsed fracture fragments. 2. 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 Hip/Pelvis X-Ray 10/13/19 14:28 IMPRESSION: 1. No acute fracture or dislocation of the pelvis or hips. 2. Moderate osteoarthritis bilateral femoroacetabular joints. 3. Previously described lytic bone lesions in the sacrum, iliac bones, and lower lumbar spine are radiographically occult. Status: Image reviewed by me Assessment & Plan - Diagnosis (1) Lung mass Is this a current diagnosis for this admission?: Yes Plan: I discussed with the patient in detail. His PSA is low, so this does not look to be prostate cancer. It could be lung cancer, myeloma, or other entity. Biopsy of the lung lesion is planned for tomorrow. Await Myeloma labs. Hopefully, biopsy will be such that tumor markers may be obtained as well. (2) Pathological fracture Qualifiers: Pathology associated with fracture: neoplastic disease Site of pathological fracture: vertebra Is this a current diagnosis for this admission?: Yes Plan: Consider kyphoplasty once diagnosis is known. Radiologist and I reviewed films together. No evidence of cord compression at this time, per CTs. May consider MRI in the future. - Plan Summary Plan Summary: CT brain with and without contrast was obtained and does not show any brain mets at this time. Once biopsy obtained and pain well controlled, may discharge for further follow-up to review path report. I am happy to continue to follow with you and after discharge. Patient was also discussed with Dr. Flannery.
[2019-10-14] MEDS: HYDRALAZINE HCL INJ/PF 20 MG/1 ML SDV IV PRN (17:38)
--- NOTE | 2019-10-14 18:19 | PDOC PROGRESS REPORT ---
Subjective Progress Note for:: 10/14/19 Subjective:: No adverse events overnight. Says his pain is well enough controlled with Percocet. He actually got up with a walker and walked 200 feet with physical therapy today, which is better than I thought he would do. Reason For Visit: HYPERTENSION, T12 FRACTURE Physical Exam Vital Signs: Temp Pulse Resp BP Pulse Ox 98.3 F 91 16 145/94 H 93 10/14/19 13:10 10/14/19 16:19 10/14/19 16:19 10/14/19 13:10 10/14/19 16:19 Intake & Output 10/13/19 10/14/19 10/15/19 06:59 06:59 06:59 Intake Total 1120 Balance 1120 Weight 83.3 kg General appearance: PRESENT: no acute distress, cooperative, disheveled Respiratory exam: PRESENT: clear to auscultation benedicto, decreased breath sounds, symmetrical, unlabored. ABSENT: accessory muscle use, prolonged expiratory phas, rales, retraction, rhonchi, tachypnea, wheezes Cardiovascular exam: PRESENT: RRR, +S1, +S2 Pulses: PRESENT: normal carotid pulses Vascular exam: PRESENT: normal capillary refill GI/Abdominal exam: PRESENT: normal bowel sounds, soft. ABSENT: distended, guarding, rebound, tenderness Extremities exam: ABSENT: clubbing, pedal edema Musculoskeletal exam: PRESENT: normal inspection. ABSENT: deformity Neurological exam: PRESENT: alert, awake, oriented to person, oriented to place, oriented to time, oriented to situation Results Laboratory Results: 10/14/19 08:13 10/14/19 08:13 10/14/19 10/14/19 10/14/19 08:13 08:13 13:22 WBC 6.0 RBC 3.99 L Hgb 12.9 L D Hct 38.1 MCV 96 MCH 32.5 MCHC 34.0 RDW 13.7 Plt Count 223 Sodium 137.8 Potassium 3.6 D Chloride 101 Carbon Dioxide 27 Anion Gap 10 BUN 11 Creatinine 0.51 L Est GFR ( Amer) > 60 Glucose 95 Calcium 8.7 Prostate Specific Ag 4.850 H 10/13/19 12:53 Troponin I < 0.012 NT-Pro-B Natriuret Pep 1190 H Impressions: Abdomen/Pelvis CT 10/13/19 00:00 IMPRESSION: Spiculated right lower lobe mass worrisome for primary lung tumor with diffuse metastatic disease as above. Chest CT 10/13/19 00:00 IMPRESSION: Spiculated right lower lobe mass worrisome for primary lung tumor with diffuse metastatic disease as above. Head CT 10/13/19 00:00 IMPRESSION: NORMAL BRAIN CT WITHOUT AND WITH CONTRAST. EVIDENCE OF ACUTE STROKE: NO. Chest X-Ray 10/13/19 12:29 IMPRESSION: Left lower lobe pneumonia. Abdomen Ultrasound 10/13/19 12:30 IMPRESSION: Fatty liver. No acute findings. Lumbar Spine CT 10/13/19 14:24 IMPRESSION: 1. Acute probable pathologic fracture of T12. No retropulsed fracture fragments. 2. 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 Hip/Pelvis X-Ray 10/13/19 14:28 IMPRESSION: 1. No acute fracture or dislocation of the pelvis or hips. 2. Moderate osteoarthritis bilateral femoroacetabular joints. 3. Previously described lytic bone lesions in the sacrum, iliac bones, and lower lumbar spine are radiographically occult. Assessment and Plan - Diagnosis (1) T12 compression fracture Qualifiers: Encounter type: initial encounter Qualified Code(s): S22.080A - Wedge compression fracture of T11-T12 vertebra, initial encounter for closed fracture Is this a current diagnosis for this admission?: Yes Plan: Pain control, ambulate with walker as tolerated. If he still having some pain tomorrow I will consider getting pain management involved to see if he would benefit from a kyphoplasty. (2) Bone lesion Is this a current diagnosis for this admission?: Yes Plan: He has what appears to be suspicious for lung cancer with numerous metastases. PSA is a little bit elevated above the upper limit of normal but not s ubstantially so. We are planning for a CT-guided lung biopsy. He will follow- up with oncology as an outpatient. - Plan Summary Summary: I am going to get a CT scan of the head, chest, abdomen, and pelvis. We will also order a serum protein electrophoresis along with free light chains. It is noted that his creatinine and his calcium are normal. His hemoglobin is also normal. Once we get some more information, we will get an oncology consultation. Have ordered physical therapy evaluation. We will start him on some lisinopril because this is what he was taking as an outpatient. Have also ordered some PRN hydralazine. - Time Time Spent with patient: 15-24 minutes
[2019-10-15] MEDS: IPRATROPIUM/ALBUTEROL 0.5-2.5 MG/3 ML AMPUL NEB PRN (03:36)
[2019-10-15] MEDS: HEPARIN SOD (PORCINE) 5,000 UNIT/ML 1 ML VIAL SUBCUT SCH (05:43)
[2019-10-15 06:29] LABS: HEMATOCRIT 39.1 % (37.9-51.0); HEMOGLOBIN 13.3 g/dL (13.5-17.0); MEAN CORPUSCULAR HEMOGLOBIN 32.5 pg (27.0-33.4); MEAN CORPUSCULAR HGB CONC 34.2 g/dL (32.0-36.0); MEAN CORPUSCULAR VOLUME 95 fl (80-97); PLATELET COUNT 216 10^3/uL (150-450); RED CELL DISTRIBUTION WIDTH 13.6 % (11.5-14.0); WHITE BLOOD COUNT 5.8 10^3/uL (4.0-10.5)
[2019-10-15 06:37] LABS: ANION GAP 11 (5-19); BLOOD UREA NITROGEN 10 mg/dL (7-20); CARBON DIOXIDE 26 mmol/L (22-30); CHLORIDE 100 mmol/L (98-107); GLUCOSE 96 mg/dL (75-110); POTASSIUM 3.9 mmol/L (3.6-5.0)
--- NOTE | 2019-10-15 08:36 | PDOC PROGRESS REPORT ---
Subjective Progress Note for:: 10/15/19 Subjective:: Pain seems to be controlled, patient otherwise doing okay this morning. Plan for CT-guided biopsy this morning. Reason For Visit: HYPERTENSION, T12 FRACTURE Physical Exam Vital Signs: Temp Pulse Resp BP Pulse Ox 98.2 F 97 18 167/109 H 98 10/14/19 23:48 10/15/19 03:37 10/15/19 03:37 10/14/19 23:48 10/15/19 03:37 Intake & Output 10/14/19 10/15/19 10/16/19 06:59 06:59 06:59 Intake Total 1120 959 Output Total 450 Balance 1120 509 Weight 83.3 kg 83.5 kg General appearance: PRESENT: no acute distress, well-developed, well-nourished Head exam: PRESENT: atraumatic, normocephalic Eye exam: PRESENT: conjunctiva pink, EOMI, PERRLA. ABSENT: scleral icterus Ear exam: PRESENT: normal external ear exam Mouth exam: PRESENT: moist, tongue midline Neck exam: ABSENT: carotid bruit, JVD, lymphadenopathy, thyromegaly Respiratory exam: PRESENT: clear to auscultation benedicto. ABSENT: rales, rhonchi, wheezes Cardiovascular exam: PRESENT: RRR. ABSENT: diastolic murmur, rubs, systolic murmur Pulses: PRESENT: normal dorsalis pedis pul Vascular exam: PRESENT: normal capillary refill GI/Abdominal exam: PRESENT: normal bowel sounds, soft. ABSENT: distended, guar ding, mass, organolmegaly, rebound, tenderness Rectal exam: PRESENT: deferred Extremities exam: PRESENT: full ROM. ABSENT: calf tenderness, clubbing, pedal edema Neurological exam: PRESENT: alert, awake, oriented to person, oriented to place, oriented to time, oriented to situation, CN II-XII grossly intact. ABSENT: motor sensory deficit Psychiatric exam: PRESENT: appropriate affect, normal mood. ABSENT: homicidal ideation, suicidal ideation Skin exam: PRESENT: dry, intact, warm. ABSENT: cyanosis, rash Results Laboratory Results: 10/15/19 05:57 10/15/19 05:57 10/14/19 10/14/19 10/14/19 08:13 08:13 13:22 WBC 6.0 RBC 3.99 L Hgb 12.9 L D Hct 38.1 MCV 96 MCH 32.5 MCHC 34.0 RDW 13.7 Plt Count 223 Sodium 137.8 Potassium 3.6 D Chloride 101 Carbon Dioxide 27 Anion Gap 10 BUN 11 Creatinine 0.51 L Est GFR ( Amer) > 60 Glucose 95 Calcium 8.7 Prostate Specific Ag 4.850 H 10/15/19 10/15/19 05:57 05:57 WBC 5.8 RBC 4.10 L Hgb 13.3 L Hct 39.1 MCV 95 MCH 32.5 MCHC 34.2 RDW 13.6 Plt Count 216 Sodium 137.0 Potassium 3.9 Chloride 100 Carbon Dioxide 26 Anion Gap 11 BUN 10 Creatinine 0.52 Est GFR ( Amer) > 60 Glucose 96 Calcium 9.0 Prostate Specific Ag 10/13/19 17:35 Blood Blood Culture (PCR) - Final 10/13/19 12:53 Troponin I < 0.012 NT-Pro-B Natriuret Pep 1190 H Impressions: Abdomen/Pelvis CT 10/13/19 00:00 IMPRESSION: Spiculated right lower lobe mass worrisome for primary lung tumor with diffuse metastatic disease as above. Chest CT 10/13/19 00:00 IMPRESSION: Spiculated right lower lobe mass worrisome for primary lung tumor with diffuse metastatic disease as above. Head CT 10/13/19 00:00 IMPRESSION: NORMAL BRAIN CT WITHOUT AND WITH CONTRAST. EVIDENCE OF ACUTE STROKE: NO. Chest X-Ray 10/13/19 12:29 IMPRESSION: Left lower lobe pneumonia. Abdomen Ultrasound 10/13/19 12:30 IMPRESSION: Fatty liver. No acute findings. Lumbar Spine CT 10/13/19 14:24 IMPRESSION: 1. Acute probable pathologic fracture of T12. No retropulsed fracture fragments. 2. 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 Hip/Pelvis X-Ray 10/13/19 14:28 IMPRESSION: 1. No acute fracture or dislocation of the pelvis or hips. 2. Moderate osteoarthritis bilateral femoroacetabular joints. 3. Previously described lytic bone lesions in the sacrum, iliac bones, and lower lumbar spine are radiographically occult. 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 Once we have diagnosis we can consider radiation consult. (3) Left lower lobe pneumonia Qualifiers: Pneumonia type: due to group B Streptococcus Qualified Code(s): J15.3 - Pneumonia due to streptococcus, group B Is this a current diagnosis for this admission?: Yes Plan: 1 of 2 blood cultures positive but may be contaminant. Will discuss with hospitalist team about starting antibiotic - Time Time Spent with patient: 35 or more minutes - Inpatient Certification Based on my medical assessment, after consideration of the patient's comorbidities, presenting symptoms, or acuity I expect that the services needed warrant INPATIENT care.: Yes I certify that my determination is in accordance with my understanding of Medicare's requirements for reasonable and necessary INPATIENT services [42 CFR 412.3e].: Yes Medical Necessity: Need for IV Antibiotics, Need for Surgery
[2019-10-15] MEDS ORDERED: MORPHINE SULFATE 10 MG/ML INJ IV ONE (09:00)
[2019-10-15 09:22] LABS: INTERNATIONAL RATION (INR) 0.95; PROTHROMBIN TIME 12.7 SEC (11.4-15.4)
[2019-10-15] MEDS: LISINOPRIL 10 MG TABLET PO SCH (09:58)
[2019-10-15] MEDS: OXYCODONE-ACETAMINOPHEN 5-325 MG TABLET PO PRN ×2 (14:00→20:23)
[2019-10-15 16:37] LABS: FREE KAPPA LIGHT CHAINS 30.1 mg/L (3.3-19.4); FREE LAMBDA LIGHT CHAINS 18.5 mg/L (5.7-26.3)
--- NOTE | 2019-10-15 17:43 | PDOC PROGRESS REPORT ---
Subjective Progress Note for:: 10/15/19 Subjective:: No adverse events overnight. He got up and walked pretty well again today, but he gets short of breath and needs oxygen intermittently. I told him that we would test him before he leaves to see if he needs home oxygen. He was going to get his lung biopsy today but had gotten heparin and the radiology supervisor refused to do the procedure. Reason For Visit: HYPERTENSION, T12 FRACTURE Physical Exam Vital Signs: Temp Pulse Resp BP Pulse Ox 98.1 F 88 16 145/98 H 93 10/15/19 16:00 10/15/19 16:00 10/15/19 16:00 10/15/19 16:00 10/15/19 16:00 Intake & Output 10/14/19 10/15/19 10/16/19 06:59 06:59 06:59 Intake Total 1120 959 240 Output Total 450 Balance 1120 509 240 Weight 83.3 kg 83.5 kg General appearance: PRESENT: no acute distress, cooperative, disheveled Respiratory exam: PRESENT: clear to auscultation benedicto, decreased breath sounds, symmetrical, unlabored. ABSENT: accessory muscle use, prolonged expiratory phas, rales, retraction, rhonchi, tachypnea, wheezes Cardiovascular exam: PRESENT: RRR, +S1, +S2 Pulses: PRESENT: normal carotid pulses Vascular exam: PRESENT: normal capillary refill GI/Abdominal exam: PRESENT: normal bowel sounds, soft. ABSENT: distended, guarding, rebound, tenderness Extremities exam: ABSENT: clubbing, pedal edema Musculoskeletal exam: PRESENT: normal inspection. ABSENT: deformity Neurological exam: PRESENT: alert, awake, oriented to person, oriented to place, oriented to time, oriented to situation Results Laboratory Results: 10/15/19 05:57 10/15/19 05:57 10/15/19 10/15/19 05:57 05:57 WBC 5.8 RBC 4.10 L Hgb 13.3 L Hct 39.1 MCV 95 MCH 32.5 MCHC 34.2 RDW 13.6 Plt Count 216 Sodium 137.0 Potassium 3.9 Chloride 100 Carbon Dioxide 26 Anion Gap 11 BUN 10 Creatinine 0.52 Est GFR ( Amer) > 60 Glucose 96 Calcium 9.0 10/13/19 17:35 Blood Blood Culture (PCR) - Final 10/13/19 17:35 Blood Blood Culture - Final Corynebacterium Species 10/13/19 12:53 Troponin I < 0.012 NT-Pro-B Natriuret Pep 1190 H Impressions: Abdomen/Pelvis CT 10/13/19 00:00 IMPRESSION: Spiculated right lower lobe mass worrisome for primary lung tumor with diffuse metastatic disease as above. Chest CT 10/13/19 00:00 IMPRESSION: Spiculated right lower lobe mass worrisome for primary lung tumor with diffuse metastatic disease as above. Head CT 10/13/19 00:00 IMPRESSION: NORMAL BRAIN CT WITHOUT AND WITH CONTRAST. EVIDENCE OF ACUTE STROKE: NO. Chest X-Ray 10/13/19 12:29 IMPRESSION: Left lower lobe pneumonia. Abdomen Ultrasound 10/13/19 12:30 IMPRESSION: Fatty liver. No acute findings. Lumbar Spine CT 10/13/19 14:24 IMPRESSION: 1. Acute probable pathologic fracture of T12. No retropulsed fracture fragments. 2. 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 Hip/Pelvis X-Ray 10/13/19 14:28 IMPRESSION: 1. No acute fracture or dislocation of the pelvis or hips. 2. Moderate osteoarthritis bilateral femoroacetabular joints. 3. Previously described lytic bone lesions in the sacrum, iliac bones, and lower lumbar spine are radiographically occult. Assessment and Plan - Diagnosis (1) T12 compression fracture Qualifiers: Encounter type: initial encounter Qualified Code(s): S22.080A - Wedge compression fracture of T11-T12 vertebra, initial encounter for closed fracture Is this a current diagnosis for this admission?: Yes Plan: Pain control, ambulate with walker as tolerated. Pain seems to be well controlled has been ambulating with an assistive device. (2) Bone lesion Is this a current diagnosis for this admission?: Yes Plan: He has what appears to be suspicious for lung cancer with numerous metastases. PSA is a little bit elevated above the upper limit of normal but not substant ially so. We are planning for a CT-guided lung biopsy. He will follow-up with oncology as an outpatient. - Plan Summary Summary: I am going to get a CT scan of the head, chest, abdomen, and pelvis. We will also order a serum protein electrophoresis along with free light chains. It is noted that his creatinine and his calcium are normal. His hemoglobin is also normal. Once we get some more information, we will get an oncology consultation. Have ordered physical therapy evaluation. We will start him on some lisinopril because this is what he was taking as an outpatient. Have also ordered some PRN hydralazine. - Time Time Spent with patient: 15-24 minutes
[2019-10-16] MEDS ORDERED: GLUCAGON,HUMAN RECOMB 1 MG INJ SUBCUT PRN ×2 (02:53→03:19)
[2019-10-16] MEDS ORDERED: DEXTROSE 50%-WATER 25 GM/50 ML DISP.SYRIN IV PRN ×4 (02:53→03:19)
[2019-10-16] MEDS ORDERED: DEXTROSE 40% GEL 15 GM TUBE PO PRN ×4 (02:53→03:19)
[2019-10-16] MEDS: OXYCODONE-ACETAMINOPHEN 5-325 MG TABLET PO PRN ×3 (05:40→20:48)
[2019-10-16 06:01] LABS: KAPPA LAMBDA RATIO 1.63 (0.26-1.65)
[2019-10-16 06:11] LABS: HEMATOCRIT 40.5 % (37.9-51.0); HEMOGLOBIN 13.8 g/dL (13.5-17.0); MEAN CORPUSCULAR HEMOGLOBIN 32.5 pg (27.0-33.4); MEAN CORPUSCULAR HGB CONC 34.1 g/dL (32.0-36.0); MEAN CORPUSCULAR VOLUME 95 fl (80-97); PLATELET COUNT 237 10^3/uL (150-450); RED BLOOD COUNT 4.26 10^6/uL (4.35-5.55); RED CELL DISTRIBUTION WIDTH 13.9 % (11.5-14.0); WHITE BLOOD COUNT 7.1 10^3/uL (4.0-10.5)
[2019-10-16 06:30] LABS: ANION GAP 12 (5-19); BLOOD UREA NITROGEN 12 mg/dL (7-20); CALCIUM 9.3 mg/dL (8.4-10.2); CARBON DIOXIDE 29 mmol/L (22-30); CHLORIDE 95 mmol/L (98-107); GLUCOSE 92 mg/dL (75-110); POTASSIUM 4.5 mmol/L (3.6-5.0)
--- NOTE | 2019-10-16 09:18 | PDOC PROGRESS REPORT ---
Subjective Progress Note for:: 10/16/19 Subjective:: Patient having CT-guided biopsy today, possible discharge thereafter if procedure goes well. Unsure if patient had home O2 eval Reason For Visit: HYPERTENSION, T12 FRACTURE Physical Exam Vital Signs: Temp Pulse Resp BP Pulse Ox 97.6 F 93 18 159/96 H 92 10/16/19 07:59 10/16/19 07:59 10/16/19 07:59 10/16/19 07:59 10/16/19 07:59 Intake & Output 10/15/19 10/16/19 10/17/19 06:59 06:59 06:59 Intake Total 959 1020 Output Total 450 Balance 509 1020 Weight 83.5 kg 81.6 kg General appearance: PRESENT: no acute distress, well-developed, well-nourished Head exam: PRESENT: atraumatic, normocephalic Eye exam: PRESENT: conjunctiva pink, EOMI, PERRLA. ABSENT: scleral icterus Ear exam: PRESENT: normal external ear exam Mouth exam: PRESENT: moist, tongue midline Neck exam: ABSENT: carotid bruit, JVD, lymphadenopathy, thyromegaly Respiratory exam: PRESENT: clear to auscultation benedicto. ABSENT: rales, rhonchi, wheezes Cardiovascular exam: PRESENT: RRR. ABSENT: diastolic murmur, rubs, systolic murmur Pulses: PRESENT: normal dorsalis pedis pul Vascular exam: PRESENT: normal capillary refill GI/Abdominal exam: PRESENT: normal bowel sounds, soft. ABSENT: distended, guarding, mass, organolmegaly, rebound, tenderness Rectal exam: PRESENT: deferred Extremities exam: PRESENT: full ROM. ABSENT: calf tenderness, clubbing, pedal edema Neurological exam: PRESENT: alert, awake, oriented to person, oriented to place, oriented to time, oriented to situation, CN II-XII grossly intact. ABSENT: motor sensory deficit Psychiatric exam: PRESENT: appropriate affect, normal mood. ABSENT: homicidal ideation, suicidal ideation Skin exam: PRESENT: dry, intact, warm. ABSENT: cyanosis, rash Results Laboratory Results: 10/16/19 05:35 10/16/19 05:35 10/16/19 10/16/19 05:35 05:35 WBC 7.1 RBC 4.26 L Hgb 13.8 Hct 40.5 MCV 95 MCH 32.5 MCHC 34.1 RDW 13.9 Plt Count 237 Sodium 136.0 L Potassium 4.5 Chloride 95 L Carbon Dioxide 29 Anion Gap 12 BUN 12 Creatinine 0.51 L Est GFR ( Amer) > 60 Glucose 92 Calcium 9.3 10/13/19 17:35 Blood Blood Culture (PCR) - Final 10/13/19 17:35 Blood Blood Culture - Final Corynebacterium Species 10/13/19 12:53 Troponin I < 0.012 NT-Pro-B Natriuret Pep 1190 H Impressions: Abdomen/Pelvis CT 10/13/19 00:00 IMPRESSION: Spiculated right lower lobe mass worrisome for primary lung tumor with diffuse metastatic disease as above. Chest CT 10/13/19 00:00 IMPRESSION: Spiculated right lower lobe mass worrisome for primary lung tumor with diffuse metastatic disease as above. Head CT 10/13/19 00:00 IMPRESSION: NORMAL BRAIN CT WITHOUT AND WITH CONTRAST. EVIDENCE OF ACUTE STROKE: NO. Chest X-Ray 10/13/19 12:29 IMPRESSION: Left lower lobe pneumonia. Abdomen Ultrasound 10/13/19 12:30 IMPRESSION: Fatty liver. No acute findings. Lumbar Spine CT 10/13/19 14:24 IMPRESSION: 1. Acute probable pathologic fracture of T12. No retropulsed fracture fragments. 2. 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 Hip/Pelvis X-Ray 10/13/19 14:28 IMPRESSION: 1. No acute fracture or dislocation of the pelvis or hips. 2. Moderate osteoarthritis bilateral femoroacetabular joints. 3. Previously described lytic bone lesions in the sacrum, iliac bones, and lower lumbar spine are radiographically occult. 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
[2019-10-16] MEDS ORDERED: MIDAZOLAM 2 MG/2 ML INJ ONE (10:52)
[2019-10-16] MEDS ORDERED: FENTANYL CITRATE INJ/PF 100 MCG/2 ML AMPUL ONE (10:53)
--- NOTE | 2019-10-16 11:52 | RADIOLOGY REPORT (SQ) ---
EXAM DESCRIPTION: CHEST SINGLE VIEW COMPLETED DATE/TIME: 10/16/2019 11:37 am REASON FOR STUDY: POST LUNG BIOPSY COMPARISON: Same day CT EXAM PARAMETERS: NUMBER OF VIEWS: One view. TECHNIQUE: Single frontal radiographic view of the chest acquired. RADIATION DOSE: NA LIMITATIONS: None. FINDINGS: LUNGS AND PLEURA: No pneumothorax post right lower lobe lung biopsy. Unchanged right basi lar opacities. No new effusion. MEDIASTINUM AND HILAR STRUCTURES: Stable. HEART AND VASCULAR STRUCTURES: Heart normal in size. Normal vasculature. BONES: Bilateral rib fractures of varying chronicity again noted. HARDWARE: None in the chest. OTHER: No other significant finding. IMPRESSION: No pneumothorax post right lower lobe lung biopsy. TECHNICAL DOCUMENTATION: JOB ID: [id number] [employer]- All Rights Reserved Reading location - IP/workstation name: [email or web address]
[2019-10-16] MEDS: LISINOPRIL 10 MG TABLET PO SCH (12:12)
[2019-10-16] MEDS: AMLODIPINE BESYLATE 10 MG TABLET PO SCH (12:12)
--- NOTE | 2019-10-16 12:21 | RADIOLOGY REPORT (SQ) ---
EXAM DESCRIPTION: CT BIOPSY LUNG/MEDIASTINUM; CT NEEDLE PLACEMENT COMPLETED DATE/TIME: 10/16/2019 11:23 am REASON FOR STUDY: right lower lobe lung mass; LUNG BIOPSY COMPARISON: None. TECHNIQUE: CT guided biopsy of the right lower lobe nodule performed with conscious sedation. CT Fluoroscopy Time: 10.[address] scanners at this facility use dose modulation, iterative reconstruction, and/or weight based d osing when appropriate to reduce radiation dose to as low as reasonably achievable (ALARA). [facility]: Dose Right [facility]: CareDose [facility]: Dose Right [facility]: Teradose 4D [facility]: [employer] RADIATION DOSE: mGy. FINDINGS: After obtaining informed consent and explaining the risks and benefits of conscious sedati on,the patient agreed to the procedure. Prior to the procedure, a time out was performed to verify th e patient's identity and planned procedure. IV sedation was administered and physician direction by the registered nurse using 1 milligrams of Ve rsed and 50 micrograms of fentanyl, for conscious sedation. Physiologic monitoring was provided befor e, during, and after sedation. The total sedation time was 30 minutes. Documentation face to face time, the performing proceduralist, spent monitoring the patient: [address] scanning was performed to localize the percutaneous site for the biopsy approach. After sterile skin prep and local lidocaine for skin and deep tissue anesthesia, a 19 gauge introduce r needle was advanced toward the right lower lobe pulmonary nodule. After position confirmed multipl e 20 gauge core biopsies were obtained. The samples were placed in appropriate solution and sent to the lab for analysis. Final image was obtained with the stylet partially inserted for evaluation of a pneumothorax. The system was removed and hemostasis achieved with manual compression. No immediate complications. Pathology is pending at the time of dictation. IMPRESSION: CT GUIDED BIOPSY OF THE RIGHT LOWER LOBE PULMONARY NODULE PERFORMED WITHOUT IMMEDIATE CO MPLICATION. PATHOLOGY PENDING. COMMENT: Quality ID 145: Final reports for procedures using fluoroscopy that document radiation exp osure indices, or exposure time and number of fluorographic images (if radiation exposure indices are not available) Patient medication list reviewed: Yes- Quality ID# [id number]:Eligible professional attests to documenting i n the medical record they obtained, updated, or reviewed the patient's current medications.. TECHNICAL DOCUMENTATION: JOB ID: [id number] Quality ID# [id number]: Final reports with documentation of one or more dose reduction techniques (e.g., Aut omated exposure control, adjustment of the mA and/or kV according to patient size, use of iterative r econstruction technique) 2010 [employer]- All Rights Reserved Reading location - IP/workstation name: [email or web address]
--- NOTE | 2019-10-16 13:57 | RADIOLOGY REPORT (SQ) ---
EXAM DESCRIPTION: CHEST SINGLE VIEW COMPLETED DATE/TIME: 10/16/2019 1:43 pm REASON FOR STUDY: POST LUNG BIOPSY *2 HOUR FILM* COMPARISON: 10/16/2019 EXAM PARAMETERS: NUMBER OF VIEWS: One view. TECHNIQUE: Single frontal radiographic view of the chest acquired. RADIATION DOSE: NA LIMITATIONS: None. FINDINGS: LUNGS AND PLEURA: Status post right lower lobe lung biopsy. No evidence of a pneumothora x. Stable right basilar opacities. No pleural effusion. MEDIASTINUM AND HILAR STRUCTURES: No masses. Contour normal. HEART AND VASCULAR STRUCTURES: Heart normal in size. Normal vasculature. BONES: The osseous structures are stable in appearance. Stable bilateral old rib fractures. HARDWARE: None in the chest. OTHER: No other significant finding. IMPRESSION: 1. No significant interval changes from the examination performed earlier on 10/16/2019. Status post right lower lobe lung biopsy. No evidence of pneumothorax. TECHNICAL DOCUMENTATION: JOB ID: [id number]- All Rights Reserved Reading location - IP/workstation name: [email or web address]
[2019-10-16 14:37] LABS: A/G RATIO 1.1 (0.7-1.7); ALBUMIN 2 3.3 g/dL (2.9-4.4); ALPHA-2-GLOBULIN 2 0.8 g/dL (0.4-1.0); GAMMA GLOBULIN 0.9 g/dL (0.4-1.8); GLOBULIN TOTAL 3.1 g/dL (2.2-3.9); MONOCLONAL SPIKE Not Observed g/dL (Not Observ); PROTEIN TOTAL SERUM 6.4 g/dL (6.0-8.5)
--- NOTE | 2019-10-16 16:45 | PDOC PROGRESS REPORT ---
Subjective Progress Note for:: 10/16/19 Subjective:: No adverse events overnight. No new complaints. Vital signs been stable. Oxygen level dropped when he ambulated during his 6-minute walk. He had his CT- guided lung biopsy today. Reason For Visit: HYPERTENSION, T12 FRACTURE Physical Exam Vital Signs: Temp Pulse Resp BP Pulse Ox 97.6 F 93 16 159/96 H 89 L 10/16/19 07:59 10/16/19 12:06 10/16/19 12:06 10/16/19 07:59 10/16/19 12:06 Intake & Output 10/15/19 10/16/19 10/17/19 06:59 06:59 06:59 Intake Total 959 1020 Output Total 450 Balance 509 1020 Weight 83.5 kg 81.6 kg General appearance: PRESENT: no acute distress, cooperative, disheveled Respiratory exam: PRESENT: clear to auscultation benedicto, decreased breath sounds, symmetrical, unlabored. ABSENT: accessory muscle use, prolonged expiratory phas, rales, retraction, rhonchi, tachypnea, wheezes Cardiovascular exam: PRESENT: RRR, +S1, +S2 Pulses: PRESENT: normal carotid pulses Vascular exam: PRESENT: normal capillary refill GI/Abdominal exam: PRESENT: normal bowel sounds, soft. ABSENT: distended, guarding, rebound, tenderness Extremities exam: ABSENT: clubbing, pedal edema Musculoskeletal exam: PRESENT: normal inspection. ABSENT: deformity Neurological exam: PRESENT: alert, awake, oriented to person, oriented to place, oriented to time, oriented to situation Results Laboratory Results: 10/16/19 05:35 10/16/19 05:35 10/13/19 10/16/19 10/16/19 18:48 05:35 05:35 WBC 7.1 RBC 4.26 L Hgb 13.8 Hct 40.5 MCV 95 MCH 32.5 MCHC 34.1 RDW 13.9 Plt Count 237 Sodium 136.0 L Potassium 4.5 Chloride 95 L Carbon Dioxide 29 Anion Gap 12 BUN 12 Creatinine 0.51 L Est GFR ( Amer) > 60 Glucose 92 Calcium 9.3 Total Protein 6.4 Albumin 3.3 10/13/19 17:35 Blood Blood Culture (PCR) - Final 10/13/19 17:35 Blood Blood Culture - Final Corynebacterium Species 10/13/19 12:53 Troponin I < 0.012 NT-Pro-B Natriuret Pep 1190 H Impressions: Abdomen/Pelvis CT 10/13/19 00:00 IMPRESSION: Spiculated right lower lobe mass worrisome for primary lung tumor with diffuse metastatic disease as above. Chest CT 10/13/19 00:00 IMPRESSION: Spiculated right lower lobe mass worrisome for primary lung tumor with diffuse metastatic disease as above. Head CT 10/13/19 00:00 IMPRESSION: NORMAL BRAIN CT WITHOUT AND WITH CONTRAST. EVIDENCE OF ACUTE STROKE: NO. Abdomen Ultrasound 10/13/19 12:30 IMPRESSION: Fatty liver. No acute findings. Lumbar Spine CT 10/13/19 14:24 IMPRESSION: 1. Acute probable pathologic fracture of T12. No retropulsed fracture fragments. 2. 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 Hip/Pelvis X-Ray 10/13/19 14:28 IMPRESSION: 1. No acute fracture or dislocation of the pelvis or hips. 2. Moderate osteoarthritis bilateral femoroacetabular joints. 3. Previously described lytic bone lesions in the sacrum, iliac bones, and lower lumbar spine are radiographically occult. Chest X-Ray 10/16/19 00:00 IMPRESSION: 1. No significant interval changes from the examination performed earlier on 10/16/2019. Status post right lower lobe lung biopsy. No evidence of pneumothorax. Guidance Needle Placement CT 10/16/19 00:00 IMPRESSION: CT GUIDED BIOPSY OF THE RIGHT LOWER LOBE PULMONARY NODULE PERFORMED WITHOUT IMMEDIATE COMPLICATION. PATHOLOGY PENDING. Lung Biopsy CT 10/16/19 10:00 IMPRESSION: CT GUIDED BIOPSY OF THE RIGHT LOWER LOBE PULMONARY NODULE PERFORMED WITHOUT IMMEDIATE COMPLICATION. PATHOLOGY PENDING. Assessment and Plan - Diagnosis (1) T12 compression fracture Qualifiers: Encounter type: initial encounter Qualified Code(s): S22.080A - Wedge compression fracture of T11-T12 vertebra, initial encounter for closed fracture Is this a current diagnosis for this admission?: Yes Plan: Pain control, ambulate with walker as tolerated. Pain seems to be well controlled has been ambulating with an assistive device. (2) Bone lesion Is this a current diagnosis for this admission?: Yes Plan: He has what appears to be suspicious for lung cancer with numerous metastases. PSA is a little bit elevated above the upper limit of normal but not substantially so. CT-guided lung biopsy has been obtained and sent for pathology. He will follow-up with oncology as an outpatient. (3) Centrilobular emphysema Is this a current diagnosis for this admission?: Yes Plan: He has the characteristic findings on CT and x-ray of the chest, as well as some evidence of pulmonary hypertension. This is most likely because he was an extraordinarily heavy smoker for many decades. (4) Chronic hypoxemic respiratory failure Is this a current diagnosis for this admission?: Yes Plan: Secondary to his centrilobular emphysema. We will set him up for home oxygen. This will not happen today, so we will make the arrangements tomorrow and then discharge him home as long as he does well overnight. - Plan Summary Summary: I am going to get a CT scan of the head, chest, abdomen, and pelvis. We will also order a serum protein electrophoresis along with free light chains. It is noted that his creatinine and his calcium are normal. His hemoglobin is also normal. Once we get some more information, we will get an oncology consultation. Have ordered physical therapy evaluation. We will start him on some lisinopril because this is what he was taking as an outpatient. Have also ordered some PRN hydralazine. - Time Time Spent with patient: 15-24 minutes
[2019-10-16] MEDS ORDERED: MORPHINE SULFATE 10 MG/ML INJ IV ONE (18:45)
[2019-10-17] MEDS: OXYCODONE-ACETAMINOPHEN 5-325 MG TABLET PO PRN ×3 (03:21→13:57)
[2019-10-17] MEDS: AMLODIPINE BESYLATE 10 MG TABLET PO SCH (09:14)
[2019-10-17] MEDS: LISINOPRIL 10 MG TABLET PO SCH (09:14)
--- NOTE | 2019-10-17 09:24 | PDOC PROGRESS REPORT ---
Subjective Progress Note for:: 10/17/19 Subjective:: No acute events overnight, awaiting home O2 Reason For Visit: HYPERTENSION, T12 FRACTURE Physical Exam Vital Signs: Temp Pulse Resp BP Pulse Ox 97.5 F 81 19 139/80 H 95 10/17/19 01:06 10/17/19 01:06 10/17/19 01:06 10/17/19 01:06 10/17/19 01:06 Intake & Output 10/16/19 10/17/19 10/18/19 06:59 06:59 06:59 Intake Total 1020 480 Output Total 2 Balance 1020 478 Weight 81.6 kg 79.4 kg General appearance: PRESENT: no acute distress, well-developed, well-nourished Head exam: PRESENT: atraumatic, normocephalic Eye exam: PRESENT: conjunctiva pink, EOMI, PERRLA. ABSENT: scleral icterus Ear exam: PRESENT: normal external ear exam Mouth exam: PRESENT: moist, tongue midline Neck exam: ABSENT: carotid bruit, JVD, lymphadenopathy, thyromegaly Respiratory exam: PRESENT: clear to auscultation benedicto. ABSENT: rales, rhonchi, wheezes Cardiovascular exam: PRESENT: RRR. ABSENT: diastolic murmur, rubs, systolic murmur Pulses: PRESENT: normal dorsalis pedis pul Vascular exam: PRESENT: normal capillary refill GI/Abdominal exam: PRESENT: normal bowel sounds, soft. ABSENT: distended, guarding, mass, organolmegaly, rebound, tenderness Rectal exam: PRESENT: deferred Extremities exam: PRESENT: full ROM. ABSENT: calf tenderness, clubbing, pedal edema Neurological exam: PRESENT: alert, awake, oriented to person, oriented to place, oriented to time, oriented to situation, CN II-XII grossly intact. ABSENT: motor sensory deficit Psychiatric exam: PRESENT: appropriate affect, normal mood. ABSENT: homicidal ideation, suicidal ideation Skin exam: PRESENT: dry, intact, warm. ABSENT: cyanosis, rash Results Laboratory Results: 10/16/19 05:35 10/16/19 05:35 10/13/19 18:48 Total Protein 6.4 Albumin 3.3 10/13/19 12:53 Troponin I < 0.012 NT-Pro-B Natriuret Pep 1190 H Impressions: Abdomen/Pelvis CT 10/13/19 00:00 IMPRESSION: Spiculated right lower lobe mass worrisome for primary lung tumor with diffuse metastatic disease as above. Chest CT 10/13/19 00:00 IMPRESSION: Spiculated right lower lobe mass worrisome for primary lung tumor with diffuse metastatic disease as above. Head CT 10/13/19 00:00 IMPRESSION: NORMAL BRAIN CT WITHOUT AND WITH CONTRAST. EVIDENCE OF ACUTE STROKE: NO. Abdomen Ultrasound 10/13/19 12:30 IMPRESSION: Fatty liver. No acute findings. Lumbar Spine CT 10/13/19 14:24 IMPRESSION: 1. Acute probable pathologic fracture of T12. No retropulsed fracture fragments. 2. 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 Hip/Pelvis X-Ray 10/13/19 14:28 IMPRESSION: 1. No acute fracture or dislocation of the pelvis or hips. 2. Moderate osteoarthritis bilateral femoroacetabular joints. 3. Previously described lytic bone lesions in the sacrum, iliac bones, and lower lumbar spine are radiographically occult. Chest X-Ray 10/16/19 00:00 IMPRESSION: 1. No significant interval changes from the examination performed earlier on 10/16/2019. Status post right lower lobe lung biopsy. No evidence of pneumothorax. Guidance Needle Placement CT 10/16/19 00:00 IMPRESSION: CT GUIDED BIOPSY OF THE RIGHT LOWER LOBE PULMONARY NODULE PERFORMED WITHOUT IMMEDIATE COMPLICATION. PATHOLOGY PENDING. Lung Biopsy CT 10/16/19 10:00 IMPRESSION: CT GUIDED BIOPSY OF THE RIGHT LOWER LOBE PULMONARY NODULE PERFORMED WITHOUT IMMEDIATE COMPLICATION. PATHOLOGY PENDING. Assessment & Plan - Diagnosis (1) Lung mass Is this a current diagnosis for this admission?: Yes Plan: Biopsy complete, follow-up in office next week (2) Malignant neoplasm metastatic to bone Is this a current diagnosis for this admission?: Yes Plan: Discharge with pain medication - Time Time Spent with patient: 15-24 minutes
[2019-10-17 14:20] VITALS: BP 127/82
--- NOTE | 2019-10-17 17:05 | PDOC DISCHARGE SUMMARY ---
Impression - Admit/DC Date/PCP Admission Date/Primary Care Provider: 10/13/19 18:12 MANASA HOPSON MD Discharge Date: 10/17/19 - Discharge Diagnosis (1) T12 compression fracture Is this a current diagnosis for this admission?: Yes (2) Bone lesion Is this a current diagnosis for this admission?: Yes (3) Centrilobular emphysema Is this a current diagnosis for this admission?: Yes (4) Chronic hypoxemic respiratory failure Is this a current diagnosis for this admission?: Yes - Assessment Summary: I am going to get a CT scan of the head, chest, abdomen, and pelvis. We will also order a serum protein electrophoresis along with free light chains. It is noted that his creatinine and his calcium are normal. His hemoglobin is also normal. Once we get some more information, we will get an oncology consultation. Have ordered physical therapy evaluation. We will start him on some lisinopril because this is what he was taking as an outpatient. Have also ordered some PRN hydralazine. - Additional Information Resuscitation Status: Full Code Discharge Diet: Cardiac Discharge Activity: Activity As Tolerated, Balance Activity w/Rest, No Lifting Over 10 Pounds, No Lifting/Push/Pulling, Slowly Increase Activity, Other Referrals: HALIMA MURILLO MD [ACTIVE STAFF] - (1 week to review path in office) MANASA HOPSON MD [Primary Care Provider] - Follow up as needed Prescriptions: Amlodipine Besylate [Norvasc 10 mg Tablet] 10 mg PO DAILY #30 tablet Oxycodone HCl/Acetaminophen [Percocet 5-325 mg Tablet] 1 tab PO Q4HP PRN #30 tablet PRN Reason: Lisinopril [Prinivil 10 mg Tablet] 20 mg PO DAILY #60 tablet Home Medications: Amlodipine Besylate [Norvasc 10 mg Tablet] 10 mg PO DAILY #30 tablet 10/17/19 Lisinopril [Prinivil 10 mg Tablet] 20 mg PO DAILY #60 tablet 10/17/19 Oxycodone HCl/Acetaminophen [Percocet 5-325 mg Tablet] 1 tab PO Q4HP PRN #30 tablet 10/17/19 History of Present Illiness History of Present Illness: JIN VELAZQUEZ is a 64 year old male who up until this past June was smoking 3 to 4 packs of cigarettes a day, and had been smoking like that for couple years, and prior to that had been smoking usually a pack a day or more since he was 19 years old, and he presented to the ER today complaining of back and right hip pain. He said he had worsening pain in his back and his right hip for couple of days. He does not remember falling at home. He has had worsening pain in his lower back for a few months. He said he quit smoking back in June because he was having such hard coughing fits. He said he is not had any hemoptysis. He has not had any night sweats. He apparently was wheezing a little bit when he first came into the ER but they gave him a nebulizer treatment he has been fine since then. He is hypertensive and he said that he is not had his blood pressure medication in over a year because his doctor left the area and he has not gotten a new one. He said the only other thing he was getting was a medicine for cholesterol. He has not had any bowel or bladder incontinence. He has not had any saddle anesthesia. He was noted to have a T12 compression fracture and it looked to be a pathological fracture, along with numerous other bony lesions that appeared metastatic, and the spine and in the pelvis. Hospital Course Hospital Course: His scans have indicated diffuse metastatic disease, with the T12 pathological compression fracture along with metastatic disease involving other areas of the spine, as well as the pelvis. He had adenopathy in the chest wall with a 3 cm mass in the right lower lobe. He also had 2 lesions in the liver that appear to be metastatic. He had a CT-guided biopsy of the lung lesion. We put him on some lisinopril and amlodipine for his blood pressure and that did a pretty good job controlling it. His pain was well-controlled on some Percocet. We sent prescriptions for his Percocet and his antihypertensives to the pharmacy. He also has centrilobular emphysema, and as a result he has chronic hypoxemic respiratory failure, so we set him up for home oxygen. He was ambulating well enough that he was given activity instructions and directed to use an assistive device. Home health has delivered his oxygen concentrator, and they are to come out to his house Saturday to deliver his walker and his portable oxygen. He has been using a crutch to get around with and says he actually gets around better with that than he does the walker. He will follow-up with oncology in a few days to follow-up on his pathology reports. His labs and examination were reassuring and he was discharged in stable condition. Physical Exam Vital Signs: Temp Pulse Resp BP Pulse Ox 97.3 F 95 16 145/98 H 95 10/17/19 13:51 10/17/19 13:51 10/17/19 13:51 10/17/19 13:51 10/17/19 13:51 Intake & Output 10/16/19 10/17/19 10/18/19 06:59 06:59 06:59 Intake Total 1020 480 760 Output Total 2 Balance 1020 478 760 Weight 81.6 kg 79.4 kg General appearance: PRESENT: no acute distress, cooperative, disheveled Respiratory exam: PRESENT: clear to auscultation benedicto, decreased breath sounds, symmetrical, unlabored. ABSENT: accessory muscle use, prolonged expiratory phas, rales, retraction, rhonchi, tachypnea, wheezes Cardiovascular exam: PRESENT: RRR, +S1, +S2 Pulses: PRESENT: normal carotid pulses Vascular exam: PRESENT: normal capillary refill GI/Abdominal exam: PRESENT: normal bowel sounds, soft. ABSENT: distended, guarding, rebound, tenderness Extremities exam: ABSENT: clubbing, pedal edema Musculoskeletal exam: PRESENT: normal inspection. ABSENT: deformity Neurological exam: PRESENT: alert, awake, oriented to person, oriented to place, oriented to time, oriented to situation Results Laboratory Results: WBC 7.1 10^3/uL (4.0-10.5) 10/16/19 05:35 RBC 4.26 10^6/uL (4.35-5.55) L 10/16/19 05:35 Hgb 13.8 g/dL (13.5-17.0) 10/16/19 05:35 Hct 40.5 % (37.9-51.0) 10/16/19 05:35 MCV 95 fl (80-97) 10/16/19 05:35 MCH 32.5 pg (27.0-33.4) 10/16/19 05:35 MCHC 34.1 g/dL (32.0-36.0) 10/16/19 05:35 RDW 13.9 % (11.5-14.0) 10/16/19 05:35 Plt Count 237 10^3/uL (150-450) 10/16/19 05:35 Lymph % (Auto) 14.8 % (13-45) 10/13/19 12:53 [place] % (Auto) 11.2 % (3-13) 10/13/19 12:53 Eos % (Auto) 1.8 % (0-6) 10/13/19 12:53 Baso % (Auto) 0.7 % (0-2) 10/13/19 12:53 Absolute Neuts (auto) 5.6 10^3/uL (1.7-8.2) 10/13/19 12:53 Absolute Lymphs (auto) 1.2 10^3/uL (0.5-4.7) 10/13/19 12:53 Absolute Monos (auto) 0.9 10^3/uL (0.1-1.4) 10/13/19 12:53 Absolute Eos (auto) 0.1 10^3/uL (0.0-0.6) 10/13/19 12:53 Absolute Basos (auto) 0.1 10^3/uL (0.0-0.2) 10/13/19 12:53 Seg Neutrophils % 71.5 % (42-78) 10/13/19 12:53 PT 12.7 SEC (11.4-15.4) 10/15/19 08:39 INR 0.95 10/15/19 08:39 APTT 28.1 SEC (23.5-35.8) 10/14/19 13:22 Sodium 136.0 mmol/L (137-145) L 10/16/19 05:35 Potassium 4.5 mmol/L (3.6-5.0) 10/16/19 05:35 Chloride 95 mmol/L (98-107) L 10/16/19 05:35 Carbon Dioxide 29 mmol/L (22-30) 10/16/19 05:35 Anion Gap 12 (5-19) 10/16/19 05:35 BUN 12 mg/dL (7-20) 10/16/19 05:35 Creatinine 0.51 mg/dL (0.52-1.25) L 10/16/19 05:35 Est GFR ( Amer) > 60 (>60) 10/16/19 05:35 Est GFR (MDRD) Non-Af > 60 (>60) 10/16/19 05:35 Glucose 92 mg/dL (75-110) 10/16/19 05:35 Calcium 9.3 mg/dL (8.4-10.2) 10/16/19 05:35 Total Bilirubin 0.6 mg/dL (0.2-1.3) 10/13/19 12:53 Direct Bilirubin 0.0 mg/dL (0.0-0.4) 10/13/19 12:53 Neonat Total Bilirubin Not Reportable 10/13/19 12:53 Neonat Direct Bilirubin Not Reportable 10/13/19 12:53 Neonat Indirect Bili Not Reportable 10/13/19 12:53 AST 27 U/L (17-59) 10/13/19 12:53 ALT 16 U/L (<50) 10/13/19 12:53 Alkaline Phosphatase 122 U/L (38-126) 10/13/19 12:53 Troponin I < 0.012 ng/mL 10/13/19 12:53 NT-Pro-B Natriuret Pep 1190 pg/mL (<125) H 10/13/19 12:53 Total Protein 6.4 g/dL (6.0-8.5) 10/13/19 18:48 Albumin 3.3 g/dL (2.9-4.4) 10/13/19 18:48 Globulin 3.1 g/dL (2.2-3.9) 10/13/19 18:48 Albumin/Globulin Ratio 1.1 (0.7-1.7) 10/13/19 18:48 Gzrph-8-Dsfkyfsqy 0.3 g/dL (0.0-0.4) 10/13/19 18:48 Beta Globulins 1.0 g/dL (0.7-1.3) 10/13/19 18:48 Gamma Globulins 0.9 g/dL (0.4-1.8) 10/13/19 18:48 M-Vinay Not Observed g/dL (Not Observ) 10/13/19 18:48 PEP Note Comment (.) 10/13/19 18:48 PEP Interpretation Comment (.) 10/13/19 18:48 Lipase 181.1 U/L (23-300) 10/13/19 12:53 Prostate Specific Ag 4.850 ng/mL (<4.00) H 10/14/19 13:22 Urine Color YELLOW 10/13/19 12:53 Urine Appearance CLEAR 10/13/19 12:53 Urine pH 9.0 (5.0-9.0) 10/13/19 12:53 Ur Specific [place] 1.019 10/13/19 12:53 Urine Protein 30 mg/dL (NEGATIVE) H 10/13/19 12:53 Urine Glucose (UA) NEGATIVE mg/dL (NEGATIVE) 10/13/19 12:53 Urine Ketones NEGATIVE mg/dL (NEGATIVE) 10/13/19 12:53 Urine Blood NEGATIVE (NEGATIVE) 10/13/19 12:53 Urine Nitrite NEGATIVE (NEGATIVE) 10/13/19 12:53 Urine Bilirubin NEGATIVE (NEGATIVE) 10/13/19 12:53 Urine Urobilinogen 2.0 mg/dL (<2.0) H 10/13/19 12:53 Ur Leukocyte Esterase NEGATIVE (NEGATIVE) 10/13/19 12:53 Urine WBC (Auto) 0 /HPF 10/13/19 12:53 Urine RBC (Auto) 1 /HPF 10/13/19 12:53 Urine Mucus (Auto) RARE /LPF 10/13/19 12:53 Urine Ascorbic Acid NEGATIVE (NEGATIVE) 10/13/19 12:53 Sswgq-0-Rrvghunel BHARAT 0.8 g/dL (0.4-1.0) 10/13/19 18:48 Free Emison LC, Quant 30.1 mg/L (3.3-19.4) H 10/13/19 18:48 Free Lambda LC, Quant 18.5 mg/L (5.7-26.3) 10/13/19 18:48 Free Emison/Lambda Ratio 1.63 (0.26-1.65) 10/13/19 18:48 10/13/19 12:53 Troponin I < 0.012 NT-Pro-B Natriuret Pep 1190 H Impressions: Abdomen/Pelvis CT 10/13/19 00:00 IMPRESSION: Spiculated right lower lobe mass worrisome for primary lung tumor with diffuse metastatic disease as above. Chest CT 10/13/19 00:00 IMPRESSION: Spiculated right lower lobe mass worrisome for primary lung tumor with diffuse metastatic disease as above. Head CT 10/13/19 00:00 IMPRESSION: NORMAL BRAIN CT WITHOUT AND WITH CONTRAST. EVIDENCE OF ACUTE STROKE: NO. Chest X-Ray 10/13/19 12:29 IMPRESSION: Left lower lobe pneumonia. Abdomen Ultrasound 10/13/19 12:30 IMPRESSION: Fatty liver. No acute findings. Lumbar Spine CT 10/13/19 14:24 IMPRESSION: 1. Acute probable pathologic fracture of T12. No retropulsed fracture fragments. 2. 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 Hip/Pelvis X-Ray 10/13/19 14:28 IMPRESSION: 1. No acute fracture or dislocation of the pelvis or hips. 2. Moderate osteoarthritis bilateral femoroacetabular joints. 3. Previously described lytic bone lesions in the sacrum, iliac bones, and lower lumbar spine are radiographically occult. Chest X-Ray 10/16/19 00:00 IMPRESSION: No pneumothorax post right lower lobe lung biopsy. Chest X-Ray 10/16/19 00:00 IMPRESSION: 1. No significant interval changes from the examination performed earlier on 10/16/2019. Status post right lower lobe lung biopsy. No evidence of pneumothorax. Guidance Needle Placement CT 10/16/19 00:00 IMPRESSION: CT GUIDED BIOPSY OF THE RIGHT LOWER LOBE PULMONARY NODULE PERFORMED WITHOUT IMMEDIATE COMPLICATION. PATHOLOGY PENDING. Lung Biopsy CT 10/16/19 10:00 IMPRESSION: CT GUIDED BIOPSY OF THE RIGHT LOWER LOBE PULMONARY NODULE PERFORMED WITHOUT IMMEDIATE COMPLICATION. PATHOLOGY PENDING. Plan Time Spent: Greater than 30 Minutes Stroke Is this a Stroke Patient?: No Acute Heart Failure - Is this a Heart Failure Patient?: No
== END 2019-10-17 14:26 | disposition home or self-care (01) | DRG 180 ==
LOC: ER 11:25 → EH 18:12 → 5 19:55
PROVIDERS: ADMIT Family Medicine; ATTEND Family Medicine
PROC: 0BBF3ZX Excision of Right Lower Lung Lobe, Percutaneous Approach, Diagnostic (ICD-10-PCS; principal; 2019-10-16)
DX: C34.31 Malignant neoplasm of lower lobe, right bronchus or lung (principal); J18.9 Pneumonia, unspecified organism; J96.11 Chronic respiratory failure with hypoxia; C79.51 Secondary malignant neoplasm of bone; M84.58XA Pathological fracture in neoplastic disease, other specified site, initial encounter for fracture; C78.7 Secondary malignant neoplasm of liver and intrahepatic bile duct; J43.2 Centrilobular emphysema; I10 Essential (primary) hypertension; M19.90 Unspecified osteoarthritis, unspecified site; K59.00 Constipation, unspecified; Z87.891 Personal history of nicotine dependence
CPT/HCPCS: 32405; 36415; 70460; 71045; 71046; 71260; 72131; 74177; 76705; 77012; 80048; 80053; 81001; 83690; 83880; 83883; 84153; 84165; 84484; 85025; 85027; 85610; 85730; 87040; 87077; 87150; 88305; 88341; 88342; 93005; 93010; 94640; 94761; 96365; 99285; J0360; J0696; J1644; J2250; J2270; J3010; J7030; J7620

== ENCOUNTER → 2020-05-02 | Outpatient (CLI) | payer BC, OTHER ==
--- NOTE | 2020-05-02 16:17 | RADIOLOGY REPORT (SQ) ---
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 The route of agent administration: Intravenous. ADDITIONAL DRUGS AND DOSES: None. TECHNIQUE: Routine delayed images at 3 hours post radionuclide injection acquired of the bony skelet on including anterior and posterior whole-body projections and additional focused images as needed. LIMITATIONS: None. FINDINGS: BONES: There multiple areas increased uptake including the pelvis, sacrum, spine, the righ t orbit, the right shoulder, multiple ribs. KIDNEYS: Symmetric excretion without obstruction. OTHER: No other significant finding. IMPRESSION: Metastatic disease to bone. COMMENT: Quality measure 147: Current bone scan is compared with any available plain radiographs, p rior bone scans, and CT/MRI. TECHNICAL DOCUMENTATION: JOB ID: [id number] 2010 [employer]- All Rights Reserved Reading location - IP/workstation name: [email or web address]
== END ==
LOC: RAD 08:08
PROVIDERS: ATTEND Nurse Practitioner Family
DX: C79.51 Secondary malignant neoplasm of bone (principal); C34.31 Malignant neoplasm of lower lobe, right bronchus or lung
CPT/HCPCS: 78306; A9503; Q9969

== ENCOUNTER 2020-05-17 11:01 | Day surgery (SDC) | payer BC, OTHER ==
[~2020-05-17 11:01] MED LIST: ACETAMINOPHEN 325 MG TABLET PO PRN; CEFAZOLIN 2 GM/D5W RTU 2 GM/50 ML RTUPB IV PRN; CEFAZOLIN SODIUM 2 GM in DEXTROSE 5%-WATER 100 ML IV PRN; IBUPROFEN 800 MG in NORMAL SALINE 250 ML IV PRN
[2020-05-17 11:50] LABS: HEMATOCRIT 44.6 % (37.9-51.0); HEMOGLOBIN 15.6 g/dL (13.5-17.0); MEAN CORPUSCULAR HEMOGLOBIN 33.4 pg (27.0-33.4); MEAN CORPUSCULAR HGB CONC 35.1 g/dL (32.0-36.0); MEAN CORPUSCULAR VOLUME 95 fl (80-97); PLATELET COUNT 282 10^3/uL (150-450); RED BLOOD COUNT 4.68 10^6/uL (4.35-5.55); RED CELL DISTRIBUTION WIDTH 15.4 % (11.5-14.0); WHITE BLOOD COUNT 8.3 10^3/uL (4.0-10.5)
[2020-05-17 12:09] LABS: ANION GAP 11 (5-19); BLOOD UREA NITROGEN 16 mg/dL (7-20); CARBON DIOXIDE 21 mmol/L (22-30); CHLORIDE 102 mmol/L (98-107); GLUCOSE 93 mg/dL (75-110); POTASSIUM 4.5 mmol/L (3.6-5.0)
[2020-05-17] MEDS ORDERED: ACETAMINOPHEN 325 MG TABLET ONE (12:39)
[2020-05-17] MEDS ORDERED: CEFAZOLIN 2 GM/D5W RTU 2 GM/50 ML RTUPB IV ONE (12:41)
[2020-05-17] MEDS ORDERED: ALBUTEROL SULFATE 0.083% NEB 2.5 MG/3 ML AMPUL NEB ONE (12:58)
[2020-05-17] MEDS ORDERED: FENTANYL CITRATE INJ/PF 100 MCG/2 ML AMPUL ONE (13:12)
[2020-05-17] MEDS ORDERED: MIDAZOLAM 2 MG/2 ML INJ ONE (13:12)
[2020-05-17] MEDS ORDERED: HYDROMORPHONE HCL INJ/PF 2 MG/ML AMPULE ONE (13:12)
[2020-05-17] MEDS ORDERED: KETAMINE HCL INJ 500 MG/10 ML VIAL ONE (13:12)
[2020-05-17] MEDS ORDERED: PROPOFOL INJ 200 MG/20 ML VIAL IV ONE (13:12)
[2020-05-17] MEDS ORDERED: BUPIVACAINE HCL 0.25 % INJ/PF (2.5 MG/1 ML) 30 ML VIAL ONE (13:14)
[2020-05-17] MEDS ORDERED: LIDOCAINE 1% INJ-PF (10 MG/ML) 30 ML SDV ONE ×2 (13:14→13:15)
[2020-05-17] MEDS ORDERED: DIPHENHYDRAMINE HCL 50 MG/ML VIAL IV PRN (13:39)
[2020-05-17] MEDS ORDERED: ONDANSETRON HCL INJ/PF 4 MG/2 ML SDV IV PRN (13:39)
--- NOTE | 2020-05-17 13:40 | RADIOLOGY REPORT (SQ) ---
EXAM DESCRIPTION: CHEST SINGLE VIEW IMAGES COMPLETED DATE/TIME: 05/17/2020 1:04 pm REASON FOR STUDY: PRE OP COMPARISON: 10/16/2019 EXAM PARAMETERS: NUMBER OF VIEWS: One view. TECHNIQUE: Single frontal radiographic view of the chest acquired. RADIATION DOSE: NA LIMITATIONS: None. FINDINGS: LUNGS AND PLEURA: Dense consolidation in the right lower lobe. Patient has known lung can cer. Left lung is clear. MEDIASTINUM AND HILAR STRUCTURES: No masses. Contour normal. HEART AND VASCULAR STRUCTURES: Stable heart size. Normal vasculature. BONES: Old bilateral rib fractures. HARDWARE: None in the chest. OTHER: No other significant finding. IMPRESSION: Increasing consolidation in the right lower lobe. TECHNICAL DOCUMENTATION: JOB ID: [id number] 2010 [employer]- All Rights Reserved Reading location - IP/workstation name: [email or web address]
--- NOTE | 2020-05-17 14:16 | Discharge Summary ---
Discharge Summary (SDC) - Discharge Final Diagnosis: Lung cancer Date of Surgery: 05/17/20 Discharge Date: 05/17/20 Condition: Stable Treatment or Instructions: Discharge home. Diet as tolerated. Activity: Nonstrenuous. Follow-up with [facility] as needed. [place] 5/325 mg p.o. every 6 hours as needed for pain. Okay to shower starting on . Okay to use Mediport now. Referrals: TRICIA CORTEZ DO [Primary Care Provider] - Discharge Diet: As Tolerated Respiratory Treatments at Home: Deep Breathing/Coughing, Incentive Spirometer Discharge Activity: Balance Activity w/Rest Home Care Assistance: None Needed Report the Following to Your Physician Immediately: Shortness of Breath, Nausea, Vomiting, Increase in Pain, Yellow Skin, Fever over 101 Degrees, Unusual Bleeding, Redness
--- NOTE | 2020-05-17 14:21 | Operative Report ---
Nonrecallable Operative Report DATE OF SURGERY: 05/17/20 PREOPERATIVE DIAGNOSIS: Lung cancer POSTOPERATIVE DIAGNOSIS: Lung cancer OPERATION: 1. Ultrasound-guided central venous puncture. 2. Left internal jugular vein Mediport placement. SURGEON: DONALD STERLING ANESTHESIA: LMAC TISSUE REMOVED OR ALTERED: None COMPLICATIONS: None apparent ESTIMATED BLOOD LOSS: minimal PROCEDURE: Drains/implants: Left internal jugular vein Mediport placement. Procedure in detail: After informed consent was obtained, the patient was brought to the operating room and laid in the Trendelenburg position. The area of the low neck and chest were prepped and draped normal sterile fashion and ultrasound was used to identify the left internal jugular vein. It was compressible with normal flow. Under direct ultrasonic guidance, the left internal jugular vein was cannulated using the supplied access needle. Dark venous, nonpulsatile blood was returned in the syringe. The wire was inserted into the vein easily. The wire was confirmed to be within the lumen of the vein using the ultrasound device, as well as fluoroscopy. Picture documentation was saved and placed on the chart. A separate stab incision was created on the left chest to accommodate the Mediport hub. The catheter was then tunneled from the Mediport hub site to the needle insertion site. The dilator and breakaway sheath were then inserted over the wire. The dilator and wire were removed, leaving the breakaway sheath within the SVC. The catheter was inserted into the sheath. The sheath was cracked and pulled away, leaving the catheter within the SVC. Once this was completed, the catheter was pulled back to an appropriate level, it was trimmed to length, and was attached to the Mediport hub. Once this was completed, the Mediport hub was buried in the pocket. It was sutured to the chest wall using 3-0 Vicryl suture. Once this was completed the Mediport was accessed, aspirated, and flushed. It flushed very easily. The subcutaneous tissues were closed using 3-0 Vicryl suture. The overlying skin was closed using 4-0 Vicryl Rapide suture in subcuticular fashion. Dressings were placed, and the procedure was concluded. All sponge, instrument, needle counts were correct x2. Condition: Stable.
[2020-05-17] MEDS ORDERED: HYDROCODONE/ACETAMINOPHEN 5-325 MG TABLET PO PRN (14:22)
--- NOTE | 2020-05-17 15:02 | RADIOLOGY REPORT (SQ) ---
EXAM DESCRIPTION: CHEST SINGLE VIEW IMAGES COMPLETED DATE/TIME: 05/17/2020 2:49 pm REASON FOR STUDY: mediport insertion COMPARISON: 05/17/2020 EXAM PARAMETERS: NUMBER OF VIEWS: One view. TECHNIQUE: Single frontal radiographic view of the chest acquired. RADIATION DOSE: NA LIMITATIONS: None. FINDINGS: LUNGS AND PLEURA: Dense opacification in the right lower lobe. No pneumothorax. MEDIASTINUM AND HILAR STRUCTURES: No masses. Contour normal. HEART AND VASCULAR STRUCTURES: Heart normal in size. Normal vasculature. BONES: No acute findings. HARDWARE: Injection port is present on the left. The tip of the catheter is in the superior vena cav a. OTHER: No other significant finding. IMPRESSION: No pneumothorax status post injection port placement as described. Dense opacification in the right lower lobe. Known lung cancer. TECHNICAL DOCUMENTATION: JOB ID: [id number] 2010 [employer]- All Rights Reserved Reading location - IP/workstation name: [email or web address]
--- NOTE | 2020-05-17 16:07 | RADIOLOGY REPORT (SQ) ---
EXAM DESCRIPTION: FLUORO/CV PLACEMENT IMAGES COMPLETED DATE/TIME: 05/17/2020 3:34 pm REASON FOR STUDY: PORTACATH PLCMT LEFT SIDE ASSISTED WITH FLUORO IN OR C34.90 MALIGNANT NEOPLASM OF UNSP PART OF UNSP BRONCHUS OR L COMPARISON: None. FLUOROSCOPY TIME: 0.5 minutes 4 images saved to PACS. TECHNIQUE: Intra-operative images acquired during surgical procedure to evaluate progress. NUMBER OF IMAGES: 4 LIMITATIONS: None. FINDINGS: Left-sided central line tip overlies SVC. IMPRESSION: IMAGE(S) OBTAINED DURING PROCEDURE. COMMENT: Quality ID [id number]: Final reports for procedures using fluoroscopy that document radiation exp osure indices, or exposure time and number of fluorographic images (if radiation exposure indices are not available) Please consult full operative report of the attending physician for description of the procedure. TECHNICAL DOCUMENTATION: JOB ID: [id number] 2010 [employer]- All Rights Reserved Reading location - IP/workstation name: [email or web address]
[2020-05-17 17:58] VITALS: BP 119/90
== END 2020-05-17 15:55 | disposition home or self-care (01) ==
LOC: OROUT 11:01
PROVIDERS: ATTEND Surgery
DX: C34.90 Malignant neoplasm of unspecified part of unspecified bronchus or lung (principal); I10 Essential (primary) hypertension; R06.02 Shortness of breath; Z79.01 Long term (current) use of anticoagulants; Z79.899 Other long term (current) drug therapy; Z79.891 Long term (current) use of opiate analgesic; Z86.711 Personal history of pulmonary embolism; Z03.818 Encounter for observation for suspected exposure to other biological agents ruled out
CPT/HCPCS: 36561; 36415; 85027; 80048; 71045; 77001; 00532; C1788; U0003; J2250; J3490 ×2; J7050; J2704; J7613; J0690; J1642; J1741; C9803; 532; 87635; J1170; J3010

== ENCOUNTER 2020-07-04 11:57 | Inpatient (IN) | payer BC, OTHER ==
--- NOTE | 2020-07-04 12:43 | RADIOLOGY REPORT (SQ) ---
EXAM DESCRIPTION: CHEST SINGLE VIEW IMAGES COMPLETED DATE/TIME: 07/04/2020 12:35 pm REASON FOR STUDY: t1 sepsis alert COMPARISON: 05/17/2020 EXAM PARAMETERS: NUMBER OF VIEWS: One view. TECHNIQUE: Single frontal radiographic view of the chest acquired. RADIATION DOSE: NA LIMITATIONS: None. FINDINGS: LUNGS AND PLEURA: Persistent right lower lobe mass and/or consolidation. No pneumothorax. No definite effusion. Left lung ramirez clear. MEDIASTINUM AND HILAR STRUCTURES: No masses. Contour normal. HEART AND VASCULAR STRUCTURES: Heart normal in size. Normal vasculature. BONES: No acute findings. HARDWARE: Bdpmav-[id number]-Vdwd is in place. OTHER: No other significant finding. IMPRESSION: Persistent right lower lobe mass with surrounding consolidation. Overall aeration is sl ightly improved from prior study. TECHNICAL DOCUMENTATION: JOB ID: [id number] 2010 [employer]- All Rights Reserved Reading location - IP/workstation name: [email or web address]
[2020-07-04 12:48] LABS: VENOUS BLOOD BASE EXCESS -2.6 mmol/L; VENOUS BLOOD HCO3 23.9 mmol/L (20-32); VENOUS BLOOD PCO2 47.2 mmHg (35-63); VENOUS BLOOD PH 7.32 (7.30-7.42)
[2020-07-04 12:53] LABS: ABSOLUTE LYMPHOCYTES (AUTO) 0.3 10^3/uL (0.5-4.7); ABSOLUTE MONOCYTES (AUTO) 0.3 10^3/uL (0.1-1.4); ABSOLUTE NEUT (AUTO) 0.2 10^3/uL (1.7-8.2); BASOPHILS % (AUTO) 0.3 % (0-2); EOSINOPHILS % (AUTO) 0.5 % (0-6); HEMATOCRIT 27.3 % (37.9-51.0); HEMOGLOBIN 9.4 g/dL (13.5-17.0); LYMPHOCYTES % (AUTO) 32.9 % (13-45); MEAN CORPUSCULAR HEMOGLOBIN 32.5 pg (27.0-33.4); MEAN CORPUSCULAR HGB CONC 34.5 g/dL (32.0-36.0); MEAN CORPUSCULAR VOLUME 94 fl (80-97); MONOCYTES % (AUTO) 42.2 % (3-13); RED CELL DISTRIBUTION WIDTH 13.1 % (11.5-14.0); SEGMENTED NEUTROPHILS % (AUTO) 24.1 % (42-78); TOTAL CELLS COUNTED % (AUTO) 100 %
[2020-07-04 12:56] LABS: INTERNATIONAL RATION (INR) 1.07; PROTHROMBIN TIME 14.1 SEC (11.4-15.4)
--- NOTE | 2020-07-04 13:01 | EKG REPORT ---
SEVERITY:- ABNORMAL ECG - SINUS TACHYCARDIA MULTIPLE ATRIAL PREMATURE COMPLEXES : Confirmed by: Satish Hercules MD 04-Jul-2020 13:00:37
[2020-07-04 13:38] LABS: PLATELET COUNT 29 10^3/uL (150-450); WHITE BLOOD COUNT 0.8 10^3/uL (4.0-10.5)
[2020-07-04 13:40] LABS: ANISOCYTOSIS SLIGHT; PLATELET COMMENT DECREASED
[2020-07-04 14:02] LABS: ALBUMIN 3.7 g/dL (3.5-5.0); ALKALINE PHOSPHATASE 124 U/L (38-126); ANION GAP 16 (5-19); ASPARTATE AMINO TRANSFERASE 35 U/L (17-59); BILIRUBIN,DIRECT 0.4 mg/dL (0.0-0.4); BILIRUBIN,TOTAL 0.8 mg/dL (0.2-1.3); BLOOD UREA NITROGEN 28 mg/dL (7-20); CALCIUM 7.1 mg/dL (8.4-10.2); CARBON DIOXIDE 22 mmol/L (22-30); CHLORIDE 96 mmol/L (98-107); GLUCOSE 133 mg/dL (75-110); POTASSIUM 3.9 mmol/L (3.6-5.0); TOTAL PROTEIN 6.6 g/dL (6.3-8.2)
[2020-07-04] MEDS ORDERED: NORMAL SALINE 1000 ML 1,000 ML IV ONE ×2 (14:20→16:43)
--- NOTE | 2020-07-04 14:36 | ER Document Report ---
ED Respiratory Problem - General Chief Complaint: Breathing Difficulty Stated Complaint: ABNORMAL LABS - REFERRED Time Seen by Provider: 07/04/20 14:10 TRAVEL OUTSIDE OF THE [place] IN LAST 30 DAYS: No - HPI Notes: Patient is a 64-year-old male with a past medical history of stage IV lung cancer who presents with shortness of breath, decreased appetite, constipation. Patient received chemotherapy approximately 2 weeks ago. He states that for the past week he has had increasing shortness of breath. He has a chronic cough. He denies any sputum production. No chest pain. Patient's states he has not eaten much in 4 days but he is able to keep down fluids. Patient states that his last bowel movement was on Saturday and it was very hard and there was blood in it. He states he is sore from straining. Patient states he has pain to his left lower quadrant of his abdomen. He was sent from his oncologist office to the ER. - Related Data Allergies/Adverse Reactions: No Known Allergies Allergy (Verified 05/13/20 15:20) Past Medical History - General Information source: Patient, Relative - Social History Smoking Status: Former Smoker Frequency of alcohol use: None Drug Abuse: None Family History: Reviewed & Not Pertinent - Past Medical History Cardiac Medical History: Reports: Hx Hypertension Denies: Hx Coronary Artery Disease, Hx Heart Attack, Hx Hypercholesterolemia Pulmonary Medical History: Reports: Hx COPD Denies: Hx Asthma, Hx Bronchitis, Hx Pneumonia Neurological Medical History: Denies: Hx Cerebrovascular Accident, Hx Seizures Renal/ Medical History: Denies: Hx Peritoneal Dialysis GI Medical History: Denies: Hx Hepatitis, Hx Hiatal Hernia, Hx Ulcer Musculoskeletal Medical History: Reports Hx Arthritis Infectious Medical History: Denies: Hx Hepatitis Past Surgical History: Reports: Hx Appendectomy, Hx Orthopedic Surgery - R knee, Hx Vascular Surgery - Right leg. Denies: Hx Open Heart Surgery, Hx Pacemaker - Immunizations Hx Diphtheria, Pertussis, Tetanus Vaccination: No Review of Systems - Review of Systems Notes: CONSTITUTIONAL: No fever. Positive for weight loss. SKIN: No rash. HENT: No congestion, ear pain, or sore throat. EYES: No recent vision problems or eye pain. ENDOCRINE: No thyroid problems. No polyuria or polydipsia. CARDIOVASCULAR: No chest pain or edema. RESPIRATORY: Positive for chronic cough and shortness of breath. GASTROINTESTINAL: Positive for abdominal pain. Positive for constipation. Positive for blood in the stool several days ago. GENITOURINARY: No dysuria. MUSCULOSKELETAL: No joint pain or swelling. NEUROLOGIC: No seizures. No headache, focal weakness or sensory changes. HEMATOLOGIC: No unusual bruising or bleeding. PSYCHIATRIC: No depression or anxiety. Physical Exam - Vital signs Vitals: Resp 25 H 07/04/20 12:16 - General In distress: None Notes: VITAL SIGNS: Hypotensive. GENERAL: No acute distress, non-toxic appearance. HEAD: Normal with no signs of head trauma. EYES: EOMI, conjunctiva normal, no discharge. EARS: Hearing grossly intact. NOSE: Normal. NECK: Normal range of motion, no tenderness, supple, no lymphadenopathy, No adenopathy, no JVD. CHEST: Clear breath sounds bilaterally. CARDIAC: Regular rate and rhythm. S1 and S2, without murmurs, gallops, or rubs. VASCULAR: No Edema. ABDOMEN: Normal and soft. Discomfort to palpation of left upper quadrant and left lower quadrant. GASTROINTESTINAL: Bowel sounds normal GENITOURINARY: Normal, No tenderness MUSCULOSKELETAL: Good range of motion of all major joints. Extremities without clubbing, cyanosis or edema. NEUROLOGICAL: Alert and oriented x 3. No focal sensory or strength deficits. Speech normal. Follows commands appropriately. PSYCHIATRIC: Normal Affect, judgement and mood. SKIN: Normal appearance with no rashes or lesions. Course - Re-evaluation Re-evalutation: 07/04/20 14:[address] Wilcox, who evaluated the patient in the office today. She was concerned that maybe he has early signs of sepsis. She was also concerned about a PE as well. I informed her that I ordered a CTA of his chest as well as CT of his abdomen and pelvis. She recommended that patient be admitted to the hospital and they can be consulted. 07/04/20 20:51 On reassessment, patient's blood pressure has improved. The CTA does show pne umonia. I will treat with antibiotics. Patient was placed on neutropenic precautions. I did discuss with hospitalist to admit the patient. Patient and are in agreement. - Vital Signs Vital signs: Temp Pulse Resp BP Pulse Ox 98.9 F 15 95/76 L 97 07/04/20 20:01 07/04/20 20:01 07/04/20 20:01 07/04/20 20:01 - Laboratory Result Diagrams: 07/04/20 12:30 07/04/20 12:30 Laboratory results interpreted by me: 07/04/20 07/04/20 12:30 12:30 WBC 0.8 L* RBC 2.90 L Hgb 9.4 L Hct 27.3 L Plt Count 29 L* [place] % (Auto) 42.2 H Absolute Neuts (auto) 0.2 L Absolute Lymphs (auto) 0.3 L Seg Neutrophils % 24.1 L Sodium 134.0 L Chloride 96 L BUN 28 H Glucose 133 H Calcium 7.1 L - Diagnostic Test Radiology reviewed: Image reviewed, Reports reviewed - EKG Interpretation by Me EKG shows normal: Sinus rhythm Rate: Tachycardia Rhythm: NSR When compared to previous EKG there are: No significant change Additional EKG results interpreted by me: 07/04/20 20:57 Sinus tachycardia at a rate of 107. Atrial premature complexes. No acute ST changes. EKG is similar to previous. Critical Care Note - Critical Care Note Total time excluding time spent on procedures (mins): 30 Comments: Upon my evaluation, this patient had a high probability of eminent or life- threatening deterioration due to hypotension, pneumonia, and pancytopenia, which required my direct attention, intervention, and personal management. I have personally provided 30 minutes of critical care time. Time includes review of laboratory data, radiology results, discussion with consultants, and monitoring for potential decompensation. Interventions were performed as documented above. Discharge - Discharge Clinical Impression: Pancytopenia Pneumonia Qualifiers: Pneumonia type: due to unspecified organism Laterality: right Lung location: lower lobe of lung Qualified Code(s): J18.9 - Pneumonia, unspecified organism Dyspnea Qualifiers: Dyspnea type: unspecified Qualified Code(s): R06.00 - Dyspnea, unspecified Hypotension Qualifiers: Hypotension type: other hypotension type Qualified Code(s): I95.89 - Other hypotension Disposition: ADMITTED INPATIENT Admitting Provider: Stanley (Hospitalist) Unit Admitted: [facility]
[2020-07-04] MEDS ORDERED: CEFEPIME 2 GM/D5W RTU 2 GM/50 ML RTUPB IV ONE (14:48)
--- NOTE | 2020-07-04 17:56 | RADIOLOGY REPORT (SQ) ---
EXAM DESCRIPTION: CTA CHEST IMAGES COMPLETED DATE/TIME: 07/04/2020 5:38 pm REASON FOR STUDY: shortness of breath, cancer, previous PE COMPARISON: 10/13/2019 TECHNIQUE: CT scan of the chest performed using helical scanning technique with dynamic intravenous contrast injection. Images reviewed with lung, soft tissue and bone windows. Reconstructed coronal and sagittal MPR images reviewed. Additional 3 dimensional post-processing performed to develop Maximal Intensity Projection images (KS P). All images stored on PACS. All CT scanners at this facility use dose modulation, iterative reconstruction, and/or weight based d osing when appropriate to reduce radiation dose to as low as reasonably achievable (ALARA). [facility]: Dose Right [facility]: CareDose [facility]: Dose Right [facility]: Teradose 4D [facility]: Globa.li CONTRAST TYPE AND DOSE: contrast/concentration: Isovue 350.00 mmol/ml; Total Contrast Delivered: 75. 0 ml; Total Saline Delivered: 75.0 ml Contrast bolus adequate for pulmonary arteries and aorta. RENAL FUNCTION: BUN 28 creatinine 1 RADIATION DOSE: CT Rad equipment meets quality standard of care and radiation dose reduction techniq ues were employed. CTDIvol: 9.4 - 20.7 mGy. DLP: 2594 mGy-cm. . LIMITATIONS: None. FINDINGS: LUNGS AND PLEURA: There is considerable opacification in the right lower lobe. Moderate r ight pleural effusion. AORTA AND GREAT VESSELS: No aneurysm. No dissection. HEART: No pericardial effusion. Moderate to marked coronary artery calcifications. PULMONARY ARTERIES: No emboli visualized in the main pulmonary arteries or the segmental branches. HILAR AND MEDIASTINAL STRUCTURES: Mild right hilar adenopathy. HARDWARE: None in the chest. UPPER ABDOMEN: No significant findings. Limited exam. THYROID AND OTHER SOFT TISSUES: No masses. No adenopathy. BONES: There are sclerotic lesions in multiple vertebrae. There are sclerotic lesions in some of the ribs. Compression changes are seen at T12. Milder compression changes at T8. 3D MIPS: Confirm above findings. OTHER: No other significant finding. IMPRESSION: 1. Right lower lobe pneumonia. 2. No pulmonary embolus. No aortic aneurysm or dissection. 3. Right hilar adenopathy. 4. Metastatic lesions in the spine and ribs. COMMENT: Quality ID # [id number]: Final reports with documentation of one or more dose reduction techniques (e.g., Automated exposure control, adjustment of the mA and/or kV according to patient size, use of iterative reconstruction technique) TECHNICAL DOCUMENTATION: JOB ID: [id number] 2010 [employer]- All Rights Reserved Reading location - IP/workstation name: [email or web address]
[2020-07-04] MEDS ORDERED: VANCOMYCIN HCL INJ 1000 MG VIAL IV ONE (18:00)
[2020-07-04] MEDS ORDERED: AZITHROMYCIN INJ 500 MG VIAL IV ONE (18:02)
--- NOTE | 2020-07-04 18:07 | RADIOLOGY REPORT (SQ) ---
EXAM DESCRIPTION: CT ABD/PELVIS WITH IV ONLY IMAGES COMPLETED DATE/TIME: 07/04/2020 5:38 pm REASON FOR STUDY: metastatic cancer, left abdominal pain, constipati COMPARISON: 10/13/2019 TECHNIQUE: CT scan of the abdomen and pelvis performed using helical scanning technique with dynamic intravenous contrast injection. No oral contrast. Images reviewed with lung, soft tissue, and bone windows. Reconstructed coronal and sagittal MPR images reviewed. Delayed images for evaluation of the urinary system also acquired. All images stored on PACS. All CT scanners at this facility use dose modulation, iterative reconstruction, and/or weight based d osing when appropriate to reduce radiation dose to as low as reasonably achievable (ALARA). [facility]: Dose Right [facility]: CareDose [facility]: Dose Right [facility]: Teradose 4D [facility]: Bowman Power CONTRAST TYPE AND DOSE: 75 mL Omnipaque 350- low osmolar. RENAL FUNCTION: BUN 28 creatinine 1 RADIATION DOSE: . LIMITATIONS: None. FINDINGS: LOWER CHEST: See separate report of the CT of the chest. LIVER: Small low-density lesion in the right lobe of the liver with peripheral enhancement, likely he mangioma. SPLEEN: Normal size. No focal lesions. PANCREAS: No masses. No significant calcifications. No adjacent inflammation or peripancreatic fluid collections. Pancreatic duct not dilated. GALLBLADDER: No identified stones by CT criteria. No inflammatory changes to suggest cholecystitis. ADRENAL GLANDS: No significant masses or asymmetry. RIGHT KIDNEY AND URETER: No solid masses. There is a stable 2 cm cystic lesion in the posteromedial aspect of the right kidney. This has a calcified rim. No significant urinary calcifications. No hydronephrosis or hydroureter. LEFT KIDNEY AND URETER: No solid masses. No significant calcifications. No hydronephrosis or hydr oureter. AORTA AND VESSELS: Atherosclerosis in the distal aorta and iliac vessels. Atherosclerosis in the SMA and proximal renal arteries. RETROPERITONEUM: No retroperitoneal adenopathy, hemorrhage or masses. BOWEL AND PERITONEAL CAVITY: No masses or inflammatory changes. No free fluid or peritoneal masses. APPENDIX: Normal. PELVIS: No mass. No free fluid. Normal bladder. ABDOMINAL WALL: No masses. No hernias. BONES: Compression changes at T12 mixed lytic and sclerotic lesions in the pelvis. These are more ad vanced than on the study from 10/13/2019 OTHER: No other significant finding. IMPRESSION: 1. Increased metastatic disease to bone. 2. Apparent small hepatic hemangioma. 3. Partially calcified cystic lesion in the right kidney that is stable. 4. Atherosclerosis. TECHNICAL DOCUMENTATION: JOB ID: [id number] Quality ID # [id number]: Final reports with documentation of one or more dose reduction techniques (e.g., Au tomated exposure control, adjustment of the mA and/or kV according to patient size, use of iterative reconstruction technique) 2010 [employer]- All Rights Reserved Reading location - IP/workstation name: [email or web address]
[2020-07-04] MEDS ORDERED: ACETAMINOPHEN 325 MG TABLET PO PRN (18:25)
[2020-07-04] MEDS ORDERED: ONDANSETRON HCL INJ/PF 4 MG/2 ML SDV IV PRN (18:25)
[2020-07-04] MEDS ORDERED: MORPHINE SULFATE 10 MG/ML INJ IV PRN (18:33)
--- NOTE | 2020-07-04 18:56 | PDOC H&P ---
History of Present Illness Admission Date/PCP: 07/04/20 18:29 HALIMA MURILLO MD Patient complains of: Patient came to the ER with abnormal labs. History of Present Illness: JIN VELAZQUEZ is a 64 year old male history of stage IV lung cancer mets to the spine, failure treatment with Keytruda now on chemotherapy went to see Dr. Murillo and found to have abnormal labs patient was referred to the hospital for further management. Work-up in the ER indicates pancytopenia and a CT scan suggestive of right lower lobe pneumonia. Patient agreed to stay in the hosp ital for further management. He wants to be a full code at this time. Past Medical History Cardiac Medical History: Reports: Hypertension Denies: Coronary Artery Disease, Myocardial Infarction, Hyperlipidema Pulmonary Medical History: Reports: Chronic Obstructive Pulmonary Disease (COPD) Denies: Asthma, Bronchitis, Pneumonia Neurological Medical History: Denies: Seizures GI Medical History: Denies: Hepatitis, Hiatal Hernia Musculoskeltal Medical History: Reports: Arthritis Hematology: Denies: Anemia, Sickle Cell Disease Past Surgical History Past Surgical History: Reports: Appendectomy, Orthopedic Surgery - R knee, Vascular Surgery - Right leg Denies: Pacemaker Social History Information Source: Patient Lives with: Family Smoking Status: Former Smoker Electronic Cigarette use?: No Frequency of Alcohol Use: Occasional Hx Recreational Drug Use: No - Advance Directive Resuscitation Status: Full Code Family History Family History: Reviewed & Not Pertinent Parental Family History Reviewed: Yes - Hypertension Children Family History Reviewed: Yes Sibling(s) Family History Reviewed.: Yes Medication/Allergy Home Medications: Amlodipine Besylate [Norvasc 10 mg Tablet] 10 mg PO DAILY #30 tablet 10/17/19 Lisinopril 20 mg PO DAILY #30 tablet 10/17/19 Cholecalciferol (Vitamin D3) [Vitamin D3 1000 Unit Tablet] 1,000 unit PO DAILY 05/13/20 Megestrol Acetate 20 mg PO DAILY 05/13/20 Morphine Sulfate [Ms Contin] 15 mg PO ASDIR PRN 05/13/20 Ondansetron HCl [Zofran] 8 mg PO ASDIR PRN 05/13/20 Rivaroxaban [Xarelto] 20 mg PO DAILY 05/13/20 Sennosides [Senokot] 17.2 mg PO ASDIR PRN 05/13/20 Hydrocodone/Acetaminophen [Lorton 5-325 mg Tablet] 1 tab PO Q6HP PRN #10 tablet 05/17/20 Allergies/Adverse Reactions: No Known Allergies Allergy (Verified 05/13/20 15:20) Review of Systems Constitutional: PRESENT: fatigue, weakness, weight loss. ABSENT: fever(s), headache(s) Ears: ABSENT: hearing changes Nose, Mouth, and Throat: ABSENT: sore throat Cardiovascular: PRESENT: dyspnea on exertion. ABSENT: chest pain, orthropnea, palpitations Respiratory: PRESENT: dyspnea Gastrointestinal: PRESENT: constipation, nausea Genitourinary: ABSENT: dysuria, hematuria Musculoskeletal: ABSENT: joint swelling Neurological: ABSENT: abnormal gait, abnormal speech, confusion, dizziness, focal weakness, syncope Psychiatric: ABSENT: anxiety, depression, homidical ideation, suicidal ideation Physical Exam Vital Signs: Temp Pulse Resp BP Pulse Ox 98.6 F 14 108/77 98 07/04/20 12:41 07/04/20 18:01 07/04/20 18:01 07/04/20 16:52 Intake & Output 07/03/20 07/04/20 07/05/20 06:59 06:59 06:59 Intake Total 2049 Balance 2049 Weight 63.2 kg General appearance: PRESENT: no acute distress, cooperative, disheveled Head exam: PRESENT: atraumatic Eye exam: PRESENT: conjunctiva pale, PERRLA Mouth exam: PRESENT: neck supple Teeth exam: PRESENT: poor dentation Neck exam: ABSENT: carotid bruit, JVD, lymphadenopathy, thyromegaly Respiratory exam: PRESENT: decreased breath sounds Cardiovascular exam: PRESENT: tachycardia GI/Abdominal exam: PRESENT: normal bowel sounds, soft. ABSENT: distended, guarding, mass, organolmegaly, rebound, tenderness Rectal exam: PRESENT: deferred Extremities exam: PRESENT: full ROM. ABSENT: calf tenderness, clubbing, pedal edema Neurological exam: PRESENT: alert, awake, oriented to person, oriented to place, oriented to time, oriented to situation, CN II-XII grossly intact. ABSENT: motor sensory deficit Psychiatric exam: PRESENT: appropriate affect, normal mood. ABSENT: homicidal ideation, suicidal ideation Results Laboratory Results: 07/04/20 12:30 07/04/20 12:30 07/04/20 07/04/20 07/04/20 12:30 12:30 12:30 WBC 0.8 L* RBC 2.90 L Hgb 9.4 L Hct 27.3 L MCV 94 MCH 32.5 MCHC 34.5 RDW 13.1 Plt Count 29 L* Seg Neutrophils % 24.1 L VBG pH 7.32 VBG pCO2 47.2 VBG HCO3 23.9 VBG Base Excess -2.6 Sodium 134.0 L Potassium 3.9 Chloride 96 L Carbon Dioxide 22 Anion Gap 16 BUN 28 H Creatinine 0.99 Est GFR ( Amer) > 60 Glucose 133 H Lactic Acid Calcium 7.1 L Total Bilirubin 0.8 AST 35 Alkaline Phosphatase 124 Total Protein 6.6 Albumin 3.7 07/04/20 07/04/20 07/04/20 12:30 13:53 17:30 WBC RBC Hgb Hct MCV MCH MCHC RDW Plt Count Seg Neutrophils % VBG pH VBG pCO2 VBG HCO3 VBG Base Excess Sodium Potassium Chloride Carbon Dioxide Anion Gap BUN Creatinine Est GFR ( Amer) Glucose Lactic Acid Cancelled 0.8 0.7 Calcium Total Bilirubin AST Alkaline Phosphatase Total Protein Albumin 07/04/20 12:30 Troponin I < 0.012 Impressions: Chest X-Ray 07/04/20 12:01 IMPRESSION: Persistent right lower lobe mass with surrounding consolidation. Overall aeration is slightly improved from prior study. Abdomen/Pelvis CT 07/04/20 14:23 IMPRESSION: 1. Increased metastatic disease to bone. 2. Apparent small hepatic hemangioma. 3. Partially calcified cystic lesion in the right kidney that is stable. 4. Atherosclerosis. Chest/Abdomen CTA 07/04/20 14:23 IMPRESSION: 1. Right lower lobe pneumonia. 2. No pulmonary embolus. No aortic aneurysm or dissection. 3. Right hilar adenopathy. 4. Metastatic lesions in the spine and ribs. Assessment and Plan - Diagnosis (1) Pneumonia Qualifiers: Pneumonia type: due to unspecified organism Laterality: right Lung location: lower lobe of lung Qualified Code(s): J18.9 - Pneumonia, unspecified organism Is this a current diagnosis for this admission?: Yes Plan: 07/04/2020-patient is going to be admitted to [facility] as an inpatient with a diagnosis of right lower lobe pneumonia. Blood cultures are pending. Started on IV vancomycin, IV cefepime. GI prophylaxis initiated. DVT prophylaxis with SCDs initiated. Placed on oxygen 2 L via nasal cannula. CODE STATUS is full code. (2) Malignant neoplasm metastatic to bone Is this a current diagnosis for this admission?: No Plan: 07/04/2020-patient has history of stage IV lung cancer with metastasis to spine. Last chemotherapy was 2 weeks ago. Further management as per Dr. Murillo. (3) Pancytopenia Is this a current diagnosis for this admission?: Yes Plan: 07/04/2020-WBC count is 0.8, hemoglobin is 10.4, platelet count is 29,000. Pancytopenia most likely secondary to recent chemotherapy. Patient will be on reverse isolation. Plan is to do the labs on daily basis. (4) Hypotension Is this a current diagnosis for this admission?: Yes Plan: 07/04/2020-patient is hypotensive on arrival. Systolic blood pressure in the 80s. Given IV fluids latest blood pressure is 110/80. To continue IV fluids at 125 cc/h. To watch for the fluid overload. (5) Sepsis Is this a current diagnosis for this admission?: Yes Plan: 07/04/2020-patient came in with hypotension, right-sided lower lobe pneumonia, tachycardia and shortness of breath. Blood cultures are pending. Started on IV cefepime, IV vancomycin. May meet the criteria for sepsis. - Time Anticipated Discharge Disposition: Home with Hospice Anticipated Discharge Timeframe: within 72 hours
[2020-07-04] MEDS ORDERED: IPRATROPIUM/ALBUTEROL 0.5-2.5 MG/3 ML AMPUL NEB ONE (19:00)
[2020-07-04] MEDS: CEFEPIME 1 GM/D5W RTU 1 GM/50 ML RTUPB IV SCH (22:02)
[2020-07-04] MEDS: NORMAL SALINE 1000 ML 1,000 ML IV PRN (22:03)
[2020-07-04 23:16] LABS: APPEARANCE,URINE CLEAR; BILIRUBIN,URINE NEGATIVE (NEGATIVE); COLOR,URINE YELLOW; GLUCOSE, URINE NEGATIVE (NEGATIVE); KETONES,URINE TRACE mg/dL (NEGATIVE); PROTEIN,URINE NEGATIVE (NEGATIVE); URINE SPECIFIC GRAVITY 1.038; UROBILINOGEN,URINE NEGATIVE mg/dL (<2.0)
[2020-07-05] MEDS ORDERED: VANCOMYCIN HCL INJ 1000 MG VIAL IV PRN (05:14)
[2020-07-05] MEDS ORDERED: VANCOMYCIN HCL 750 MG in DEXTROSE 5%-WATER 250 ML IV ONE (05:15)
[2020-07-05] MEDS: PANTOPRAZOLE SODIUM 40 MG TABLET.DR PO SCH ×2 (05:47→18:22)
[2020-07-05] MEDS ORDERED: VANCOMYCIN HCL 750 MG in DEXTROSE 5%-WATER 250 ML IV SCH (06:00)
[2020-07-05 07:06] LABS: ABSOLUTE LYMPHOCYTES (AUTO) 0.2 10^3/uL (0.5-4.7); ABSOLUTE MONOCYTES (AUTO) 0.3 10^3/uL (0.1-1.4); ABSOLUTE NEUT (AUTO) 0.1 10^3/uL (1.7-8.2); BASOPHILS % (AUTO) 0.3 % (0-2); EOSINOPHILS % (AUTO) 1.5 % (0-6); HEMATOCRIT 20.9 % (37.9-51.0); LYMPHOCYTES % (AUTO) 37.3 % (13-45); MEAN CORPUSCULAR HEMOGLOBIN 33.1 pg (27.0-33.4); MEAN CORPUSCULAR HGB CONC 35.5 g/dL (32.0-36.0); MEAN CORPUSCULAR VOLUME 93 fl (80-97); MONOCYTES % (AUTO) 47.8 % (3-13); RED BLOOD COUNT 2.24 10^6/uL (4.35-5.55); SEGMENTED NEUTROPHILS % (AUTO) 13.1 % (42-78); TOTAL CELLS COUNTED % (AUTO) 100 %
[2020-07-05 07:18] LABS: ALBUMIN 2.8 g/dL (3.5-5.0); ALKALINE PHOSPHATASE 87 U/L (38-126); ANION GAP 10 (5-19); ASPARTATE AMINO TRANSFERASE 23 U/L (17-59); BILIRUBIN,DIRECT 0.2 mg/dL (0.0-0.4); BILIRUBIN,TOTAL 0.4 mg/dL (0.2-1.3); BLOOD UREA NITROGEN 17 mg/dL (7-20); CARBON DIOXIDE 23 mmol/L (22-30); CHLORIDE 103 mmol/L (98-107); CHOLESTEROL 99.75 mg/dL (0-200); GLUCOSE 104 mg/dL (75-110); POTASSIUM 3.4 mmol/L (3.6-5.0); TOTAL PROTEIN 5.4 g/dL (6.3-8.2); TRIGLYCERIDES 110 mg/dL (<150)
[2020-07-05 07:19] LABS: INTERNATIONAL RATION (INR) 1.05
[2020-07-05 07:29] LABS: DIRECT LDL 56 mg/dL (<100)
[2020-07-05 07:30] LABS: NT PRO BNP 308 pg/mL (<125)
[2020-07-05 07:34] LABS: TROPONIN I < 0.012 ng/mL
[2020-07-05 07:37] LABS: CALCIUM 6.1 mg/dL (8.4-10.2)
[2020-07-05 07:44] LABS: PLATELET COMMENT DECREASED; RBC MORPHOLOGY COMMENT NORMO-CYTIC/CHROMIC
[2020-07-05 07:47] LABS: WHITE BLOOD COUNT 0.6 10^3/uL (4.0-10.5)
[2020-07-05 07:48] LABS: PLATELET COUNT 19 10^3/uL (150-450)
[2020-07-05 07:59] LABS: HEMOGLOBIN 7.4 g/dL (13.5-17.0)
--- NOTE | 2020-07-05 08:26 | PDOC CONSULTATION ---
Consultation Consult Date: 07/05/20 Attending physician:: JOY SALTER Provider Consulted: ZACK ORNELAS Consult reason:: Shortness of breath, cough, fever, neutropenia, setting of stage IV lung cancer History of Present Illness Admission Date/PCP: 07/04/20 18:29 HALIMA MURILLO MD Patient complains of: Fever, weakness, cough History of Present Illness: JIN VELAZQUEZ is a 64 year old male who presents from office with fever, cough, weakness, and office was found to be pancytopenic with ANC of close to 0, hemoglobin was in the 8 range, platelets were 20, patient had fever in office so we decided to send him to the ED for admission for neutropenic fever. Patient was admitted, cultures were drawn, pending now, patient was started on broad- spectrum antibiotics with cefepime and vancomycin. Of note, he does have known stage IV lung cancer with liver and bone metastasis, he got carboplatin and Alimta about 1 week ago so is at his andreina counts now. I have reviewed his imaging done on admission and he does have a what appears to be a right lower lobe pneumonia, but his primary lung mass as well as bone metastasis overall in my view looks stable. Past Medical History Cardiac Medical History: Reports: Hypertension Denies: Coronary Artery Disease, Myocardial Infarction, Hyperlipidema Pulmonary Medical History: Reports: Chronic Obstructive Pulmonary Disease (COPD) Denies: Asthma, Bronchitis, Pneumonia Neurological Medical History: Denies: Seizures Malignancy Medical History: Reports: Lung Cancer - Stage IV lung cancer with liver and bone metastasis GI Medical History: Denies: Hepatitis, Hiatal Hernia Musculoskeltal Medical History: Reports: Arthritis Psychiatric Medical History: Denies: Depression Hematology: Denies: Anemia, Sickle Cell Disease Past Surgical History Past Surgical History: Reports: Appendectomy, Orthopedic Surgery - R knee, Vascular Surgery - Right leg Denies: Pacemaker Social History Lives with: Family Smoking Status: Former Smoker Electronic Cigarette use?: No Number of Years Smokin Frequency of Alcohol Use: Occasional Hx Recreational Drug Use: Yes Drugs: Marijuana - Advance Directive Resuscitation Status: Full Code Family History Family History: Reviewed & Not Pertinent Parental Family History Reviewed: Yes Children Family History Reviewed: Yes Sibling(s) Family History Reviewed.: Yes Medication/Allergy Home Medications: Amlodipine Besylate [Norvasc 10 mg Tablet] 10 mg PO DAILY #30 tablet 10/17/19 Lisinopril 20 mg PO DAILY #30 tablet 10/17/19 Cholecalciferol (Vitamin D3) [Vitamin D3 1000 Unit Tablet] 1,000 unit PO DAILY 05/13/20 Ondansetron HCl [Zofran] 8 mg PO Q8HP PRN 05/13/20 Rivaroxaban [Xarelto] 20 mg PO DAILY 05/13/20 Folic Acid [Folvite 1 mg Tablet] 1 mg PO DAILY 07/04/20 Megestrol Acetate 20 ml PO DAILY 07/04/20 Morphine Sulfate [Morphabond ER] 15 mg PO Q12 07/04/20 Morphine Sulfate [Morphine Ir 15 Mg Tablet] 15 mg PO Q4HP PRN 07/04/20 Sennosides [Senna] 17.2 mg PO BID 07/04/20 Allergies/Adverse Reactions: No Known Allergies Allergy (Verified 05/13/20 15:20) Review of Systems Constitutional: ABSENT: chills, fever(s), headache(s), weight gain, weight loss Eyes: ABSENT: visual disturbances Ears: ABSENT: hearing changes Cardiovascular: ABSENT: chest pain, dyspnea on exertion, edema, orthropnea, palpitations Respiratory: ABSENT: cough, hemoptysis Gastrointestinal: ABSENT: abdominal pain, constipation, diarrhea, hematemesis, hematochezia, nausea, vomiting Genitourinary: ABSENT: dysuria, hematuria Musculoskeletal: ABSENT: joint swelling Integumentary: ABSENT: rash, wounds Neurological: ABSENT: abnormal gait, abnormal speech, confusion, dizziness, focal weakness, syncope Psychiatric: ABSENT: anxiety, depression, homidical ideation, suicidal ideation Endocrine: ABSENT: cold intolerance, heat intolerance, polydipsia, polyuria Hematologic/Lymphatic: ABSENT: easy bleeding, easy bruising Physical Exam Vital Signs: Temp Pulse Resp BP Pulse Ox 97.8 F 85 19 107/72 100 07/05/20 03:34 07/05/20 03:34 07/05/20 03:34 07/05/20 03:34 07/05/20 03:34 Intake & Output 07/04/20 07/05/20 07/06/20 06:59 06:59 06:59 Intake Total 2100 Output Total 800 Balance 1300 Weight 65.2 kg General appearance: PRESENT: no acute distress, well-developed, well-nourished Head exam: PRESENT: atraumatic, normocephalic Eye exam: PRESENT: conjunctiva pink, EOMI, PERRLA. ABSENT: scleral icterus Ear exam: PRESENT: normal external ear exam Mouth exam: PRESENT: moist, tongue midline Neck exam: ABSENT: carotid bruit, JVD, lymphadenopathy, thyromegaly Respiratory exam: PRESENT: clear to auscultation benedicto. ABSENT: rales, rhonchi, wheezes Cardiovascular exam: PRESENT: RRR. ABSENT: diastolic murmur, rubs, systolic murmur Pulses: PRESENT: normal dorsalis pedis pul Vascular exam: PRESENT: normal capillary refill GI/Abdominal exam: PRESENT: normal bowel sounds, soft. ABSENT: distended, guarding, mass, organolmegaly, rebound, tenderness Rectal exam: PRESENT: deferred Extremities exam: PRESENT: full ROM. ABSENT: calf tenderness, clubbing, pedal edema Neurological exam: PRESENT: alert, awake, oriented to person, oriented to place, oriented to time, oriented to situation, CN II-XII grossly intact. ABSENT: motor sensory deficit Psychiatric exam: PRESENT: appropriate affect, normal mood. ABSENT: homicidal ideation, suicidal ideation Skin exam: PRESENT: dry, intact, warm. ABSENT: cyanosis, rash Results Laboratory Results: 07/05/20 06:30 07/05/20 06:30 07/04/20 07/04/20 07/04/20 12:30 12:30 12:30 WBC 0.8 L* RBC 2.90 L Hgb 9.4 L Hct 27.3 L MCV 94 MCH 32.5 MCHC 34.5 RDW 13.1 Plt Count 29 L* Seg Neutrophils % 24.1 L VBG pH 7.32 VBG pCO2 47.2 VBG HCO3 23.9 VBG Base Excess -2.6 Sodium 134.0 L Potassium 3.9 Chloride 96 L Carbon Dioxide 22 Anion Gap 16 BUN 28 H Creatinine 0.99 Est GFR ( Amer) > 60 Glucose 133 H Lactic Acid Calcium 7.1 L Magnesium Total Bilirubin 0.8 AST 35 Alkaline Phosphatase 124 Total Protein 6.6 Albumin 3.7 Triglycerides Cholesterol LDL Cholesterol Direct VLDL Cholesterol HDL Cholesterol TSH Urine Color Urine Appearance Urine pH Ur Specific [place] Urine Protein Urine Glucose (UA) Urine Ketones Urine Blood Urine RBC (Auto) 07/04/20 07/04/20 07/04/20 12:30 13:53 17:30 WBC RBC Hgb Hct MCV MCH MCHC RDW Plt Count Seg Neutrophils % VBG pH VBG pCO2 VBG HCO3 VBG Base Excess Sodium Potassium Chloride Carbon Dioxide Anion Gap BUN Creatinine Est GFR ( Amer) Glucose Lactic Acid Cancelled 0.8 0.7 Calcium Magnesium Total Bilirubin AST Alkaline Phosphatase Total Protein Albumin Triglycerides Cholesterol LDL Cholesterol Direct VLDL Cholesterol HDL Cholesterol TSH Urine Color Urine Appearance Urine pH Ur Specific [place] Urine Protein Urine Glucose (UA) Urine Ketones Urine Blood Urine RBC (Auto) 07/04/20 07/04/20 07/05/20 19:29 22:25 06:30 WBC 0.6 L* RBC 2.24 L Hgb 7.4 L Hct 20.9 L MCV 93 MCH 33.1 MCHC 35.5 RDW 13.0 Plt Count 19 L* Seg Neutrophils % 13.1 L VBG pH VBG pCO2 VBG HCO3 VBG Base Excess Sodium Potassium Chloride Carbon Dioxide Anion Gap BUN Creatinine Est GFR ( Amer) Glucose Lactic Acid 1.6 Calcium Magnesium Total Bilirubin AST Alkaline Phosphatase Total Protein Albumin Triglycerides Cholesterol LDL Cholesterol Direct VLDL Cholesterol HDL Cholesterol TSH Urine Color YELLOW Urine Appearance CLEAR Urine pH 5.0 Ur Specific [place] 1.038 Urine Protein NEGATIVE Urine Glucose (UA) NEGATIVE Urine Ketones TRACE H Urine Blood NEGATIVE Urine RBC (Auto) 3 07/05/20 07/05/20 06:30 06:30 WBC RBC Hgb Hct MCV MCH MCHC RDW Plt Count Seg Neutrophils % VBG pH VBG pCO2 VBG HCO3 VBG Base Excess Sodium 136.4 L Potassium 3.4 L Chloride 103 Carbon Dioxide 23 Anion Gap 10 BUN 17 Creatinine 0.59 Est GFR ( Amer) > 60 Glucose 104 Lactic Acid Calcium 6.1 L* Magnesium 1.2 L* Total Bilirubin 0.4 AST 23 Alkaline Phosphatase 87 Total Protein 5.4 L Albumin 2.8 L Triglycerides 110 Cholesterol 99.75 LDL Cholesterol Direct 56 VLDL Cholesterol 22.0 HDL Cholesterol 21 L TSH 1.16 Urine Color Urine Appearance Urine pH Ur Specific [place] Urine Protein Urine Glucose (UA) Urine Ketones Urine Blood Urine RBC (Auto) 07/04/20 07/04/20 07/05/20 12:30 19:29 00:30 Troponin I < 0.012 < 0.012 < 0.012 NT-Pro-B Natriuret Pep 07/05/20 06:30 Troponin I < 0.012 NT-Pro-B Natriuret Pep 308 H Impressions: Chest X-Ray 07/04/20 12:01 IMPRESSION: Persistent right lower lobe mass with surrounding consolidation. Overall aeration is slightly improved from prior study. Abdomen/Pelvis CT 07/04/20 14:23 IMPRESSION: 1. Increased metastatic disease to bone. 2. Apparent small hepatic hemangioma. 3. Partially calcified cystic lesion in the right kidney that is stable. 4. Atherosclerosis. Chest/Abdomen CTA 07/04/20 14:23 IMPRESSION: 1. Right lower lobe pneumonia. 2. No pulmonary embolus. No aortic aneurysm or dissection. 3. Right hilar adenopathy. 4. Metastatic lesions in the spine and ribs. Status: Image reviewed by me Assessment & Plan - Diagnosis (1) Pneumonia Qualifiers: Pneumonia type: due to unspecified organism Laterality: right Lung location: lower lobe of lung Qualified Code(s): J18.9 - Pneumonia, unspecified organism Is this a current diagnosis for this admission?: Yes Plan: Appears to be a right lower lobe pneumonia, agree with broad-spectrum antibiotics, if cultures are negative by 48 hours we can DC vancomycin. Cefepime would continue until ANC is greater than 1000. (2) Neutropenic fever Is this a current diagnosis for this admission?: Yes Plan: Neutropenic fever, plan as above, secondary to chemotherapy (3) Pancytopenia Is this a current diagnosis for this admission?: Yes Plan: Hold on growth factor support for now. I will review records and see if patient received Neulasta in office. If he did receive Neulasta he would not benefit from Neupogen. Otherwise, hemoglobin is 7.4, unless hemodynamically stable would allow hemoglobin to fall below 7 before transfusing. Platelets are 19, unless patient actively bleeding would like platelet count falls below 10 before transfusing. But it is likely that he will need transfusion of probably both on this admission. (4) Malignant neoplasm metastatic to bone Is this a current diagnosis for this admission?: Yes Plan: Stage IV lung cancer with metastasis to bone and liver, continue with plan as above. Further treatment planned as an outpatient. CT reviewed, do not feel that it is true progression. Probable stable disease. - Time Time Spent: Greater than 70 Minutes - Inpatient Certification Based on my medical assessment, after consideration of the patient's comorb idities, presenting symptoms, or acuity I expect that the services needed warrant INPATIENT care.: Yes I certify that my determination is in accordance with my understanding of Medicare's requirements for reasonable and necessary INPATIENT services [42 CFR 412.3e].: Yes Medical Necessity: Need For IV Fluids, Need for IV Antibiotics, Risk of Complication if Not Cared For in Hospital
[2020-07-05] MEDS ORDERED: ONDANSETRON HCL 8 MG TABLET PO PRN (09:05)
[2020-07-05] MEDS ORDERED: (PENDING PHARMACY ID) (Sennosides [Senna] 17.2 MG) PO SCH (10:00)
[2020-07-05] MEDS ORDERED: VANCOMYCIN HCL INJ 500 MG VIAL IV SCH (10:00)
[2020-07-05] MEDS ORDERED: (PENDING PHARMACY ID) (Morphine Sulfate [Morphabond Er] 15 MG) PO SCH (10:00)
[2020-07-05] MEDS: SENNOSIDES/DOCUSATE 8.6-50 MG 1 EACH TABLET PO SCH ×2 (11:32→20:48)
[2020-07-05] MEDS: CEFEPIME 1 GM/D5W RTU 1 GM/50 ML RTUPB IV SCH ×2 (11:34→23:50)
[2020-07-05] MEDS: FOLIC ACID 1 MG TABLET PO SCH (11:46)
[2020-07-05] MEDS: MORPHINE SULFATE SR 15 MG TABLET PO SCH ×2 (11:46→22:12)
[2020-07-05] MEDS: CHOLECALCIFEROL (D3) 1,000 UNIT (25 MCG) TABLET PO SCH (11:49)
[2020-07-05 12:31] LABS: PATH REVIEW PATHOLOGIST REVIEWED
[2020-07-05] MEDS: MAGNESIUM SULFATE/D5W 1 GM/100 ML RTUPB IV SCH ×3 (14:13→19:59)
[2020-07-05] MEDS ORDERED: FILGRASTIM-AAFI 480 MCG/0.8 ML SYRINGE SUBCUT ONE (15:57)
--- NOTE | 2020-07-05 16:01 | PDOC PROGRESS REPORT ---
Subjective Progress Note for:: 07/05/20 Subjective:: JIN VELAZQUEZ is a 64 year old male history of stage IV lung cancer mets to the spine, failure treatment with Keytruda now on chemotherapy went to see Dr. Murillo and found to have abnormal labs patient was referred to the hospital for further management. Work-up in the ER indicates pancytopenia and a CT scan suggestive of right lower lobe pneumonia. Patient agreed to stay in the hospital for further management. He wants to be a full code at this time. D2 Hospital stay 07/05/20. He was seen and examined at bedside. He feels overall better, had some SOB when he ambulates. Denies any fever, chest pain, cough. WBC count still trending down from 0.8 to 0.6, Hgb 7.4 from 9.4, denies any bleeding. ANC 0.1, platelet 19. Dr. Cueva has seen him who recommend continued abx for neutropenia. No plans for neupogen at this time. Transfuse if actively bleeding. Reason For Visit: HYPOTENSION Physical Exam Vital Signs: Temp Pulse Resp BP Pulse Ox 98.3 F 95 18 120/82 100 07/05/20 11:58 07/05/20 11:58 07/05/20 11:58 07/05/20 11:58 07/05/20 11:58 Intake & Output 07/04/20 07/05/20 07/06/20 06:59 06:59 06:59 Intake Total 2100 980 Output Total 800 Balance 1300 980 Weight 65.2 kg General appearance: PRESENT: no acute distress, cooperative Head exam: PRESENT: atraumatic, normocephalic Eye exam: PRESENT: EOMI, PERRLA Mouth exam: PRESENT: moist Neck exam: PRESENT: full ROM Respiratory exam: PRESENT: clear to auscultation benedicto, symmetrical, unlabored. ABSENT: rales Cardiovascular exam: PRESENT: RRR, +S1, +S2 Pulses: PRESENT: +2 pedal pulses bilateral GI/Abdominal exam: PRESENT: normal bowel sounds, soft. ABSENT: rebound, tenderness Extremities exam: PRESENT: full ROM. ABSENT: +2 edema Musculoskeletal exam: PRESENT: full ROM Neurological exam: PRESENT: alert, awake, oriented to person, oriented to place, oriented to time, oriented to situation Psychiatric exam: PRESENT: normal mood Skin exam: PRESENT: normal color Results Laboratory Results: 07/05/20 06:30 07/05/20 06:30 07/04/20 07/04/20 07/04/20 17:30 19:29 22:25 WBC RBC Hgb Hct MCV MCH MCHC RDW Plt Count Seg Neutrophils % Sodium Potassium Chloride Carbon Dioxide Anion Gap BUN Creatinine Est GFR ( Amer) Glucose Lactic Acid 0.7 1.6 Calcium Magnesium Total Bilirubin AST Alkaline Phosphatase Total Protein Albumin Triglycerides Cholesterol LDL Cholesterol Direct VLDL Cholesterol HDL Cholesterol TSH Urine Color YELLOW Urine Appearance CLEAR Urine pH 5.0 Ur Specific [place] 1.038 Urine Protein NEGATIVE Urine Glucose (UA) NEGATIVE Urine Ketones TRACE H Urine Blood NEGATIVE Urine RBC (Auto) 3 07/05/20 07/05/20 07/05/20 06:30 06:30 06:30 WBC 0.6 L* RBC 2.24 L Hgb 7.4 L Hct 20.9 L MCV 93 MCH 33.1 MCHC 35.5 RDW 13.0 Plt Count 19 L* Seg Neutrophils % 13.1 L Sodium 136.4 L Potassium 3.4 L Chloride 103 Carbon Dioxide 23 Anion Gap 10 BUN 17 Creatinine 0.59 Est GFR ( Amer) > 60 Glucose 104 Lactic Acid Calcium 6.1 L* Magnesium 1.2 L* Total Bilirubin 0.4 AST 23 Alkaline Phosphatase 87 Total Protein 5.4 L Albumin 2.8 L Triglycerides 110 Cholesterol 99.75 LDL Cholesterol Direct 56 VLDL Cholesterol 22.0 HDL Cholesterol 21 L TSH 1.16 Urine Color Urine Appearance Urine pH Ur Specific [place] Urine Protein Urine Glucose (UA) Urine Ketones Urine Blood Urine RBC (Auto) 07/04/20 07/04/20 07/05/20 12:30 19:29 00:30 Troponin I < 0.012 < 0.012 < 0.012 NT-Pro-B Natriuret Pep 07/05/20 06:30 Troponin I < 0.012 NT-Pro-B Natriuret Pep 308 H Impressions: Chest X-Ray 07/04/20 12:01 IMPRESSION: Persistent right lower lobe mass with surrounding consolidation. Overall aeration is slightly improved from prior study. Abdomen/Pelvis CT 07/04/20 14:23 IMPRESSION: 1. Increased metastatic disease to bone. 2. Apparent small hepatic hemangioma. 3. Partially calcified cystic lesion in the right kidney that is stable. 4. Atherosclerosis. Chest/Abdomen CTA 07/04/20 14:23 IMPRESSION: 1. Right lower lobe pneumonia. 2. No pulmonary embolus. No aortic aneurysm or dissection. 3. Right hilar adenopathy. 4. Metastatic lesions in the spine and ribs. Assessment and Plan - Diagnosis (1) Pancytopenia Is this a current diagnosis for this admission?: Yes Plan: - Chemo related. received carboplatin and alimta 1 week prior for stage 4 lung ca - WBC 0.8>0.6 - Hgb 9.4>7.4 - Plt 29>19 - ANC 0.1 - on cefepime and vanc for broad spectrum coverage -Awaiting blood cultures. Will de-escalate antibiotics as appropriate -We will monitor CBC daily. No indication for Neupogen for now -Heme-onc following suggest no RBC transfusion until hemoglobin drops below 7, no platelet transfusion unless platelet count less than 10,000 with bleeding. (2) Neutropenic fever Is this a current diagnosis for this admission?: Yes Plan: -CXR showing RLL Pneumonia. recently received chemo carboplatin and alimta 1 week prior - on cefepime and vanc will de escalate once cultures are out - ANC 0.1 - (3) Pneumonia Qualifiers: Pneumonia type: due to unspecified organism Laterality: right Lung location: lower lobe of lung Qualified Code(s): J18.9 - Pneumonia, unspecified organism Is this a current diagnosis for this admission?: Yes Plan: - CXR showinf RLL pneumonia - on cefepime and Vanc - blood cultures pending - continue O2 support (4) Lung cancer Is this a current diagnosis for this admission?: Yes Plan: - Stage IV lung Ca with bone and liver mets - on Carbo + alimta last dose 1 week prior - follows with Dr. Wilcox (5) Sepsis Qualifiers: Sepsis type: sepsis due to unspecified organism Sepsis acute organ dysfunction status: without acute organ dysfunction Qualified Code(s): A41.9 - Sepsis, unspecified organism Is this a current diagnosis for this admission?: Yes Plan: - resolving. came in with hypotensionm tachycardia and pneumonia - 2/2 Pneumonia - on broad spectrum bx (6) History of pulmonary embolus (PE) Is this a current diagnosis for this admission?: Yes Plan: - has been on xarelto for 3-4 months - will hold for now due to decreased platelets. will not give heparin sq as well for now. Discussed this w/ Dr. Milan - SCD for DVT prophylaxis - Time Time Spent with patient: 25-34 minutes Anticipated Discharge Disposition: Home, Self Care Anticipated Discharge Timeframe: to be determined
[2020-07-05] MEDS: CALCIUM GLUC IN NACL, ISO-OSM 1 GM/50 ML RTUPB IV SCH ×2 (16:11→18:22)
[2020-07-05] MEDS: NORMAL SALINE 1000 ML 1,000 ML IV PRN (16:29)
[2020-07-05] MEDS ORDERED: CALCIUM GLUCONATE 1 GM/NS 50 ML RTU IV ONE ×2 (18:15→21:00)
[2020-07-05] MEDS: MORPHINE SULFATE IR 15 MG TABLET PO PRN (20:18)
[2020-07-05] MEDS: MAGNESIUM SULFATE 1 GM/D5W 100 ML IV SCH ×2 (20:36)
[2020-07-05] MEDS: VANCOMYCIN HCL 750 MG in DEXTROSE 5%-WATER 250 ML IV SCH (22:12)
[2020-07-06] MEDS: VANCOMYCIN HCL 750 MG in DEXTROSE 5%-WATER 250 ML IV SCH (05:00)
[2020-07-06] MEDS: PANTOPRAZOLE SODIUM 40 MG TABLET.DR PO SCH ×2 (05:01→18:05)
[2020-07-06 05:41] LABS: MEAN CORPUSCULAR HEMOGLOBIN 32.6 pg (27.0-33.4); MEAN CORPUSCULAR HGB CONC 35.3 g/dL (32.0-36.0); MEAN CORPUSCULAR VOLUME 92 fl (80-97); RED BLOOD COUNT 2.38 10^6/uL (4.35-5.55); RED CELL DISTRIBUTION WIDTH 12.8 % (11.5-14.0)
[2020-07-06 05:42] LABS: ALBUMIN 2.8 g/dL (3.5-5.0); ALKALINE PHOSPHATASE 93 U/L (38-126); ANION GAP 10 (5-19); ASPARTATE AMINO TRANSFERASE 21 U/L (17-59); BILIRUBIN,DIRECT 0.2 mg/dL (0.0-0.4); BILIRUBIN,TOTAL 0.4 mg/dL (0.2-1.3); BLOOD UREA NITROGEN 8 mg/dL (7-20); CALCIUM 7.3 mg/dL (8.4-10.2); CARBON DIOXIDE 24 mmol/L (22-30); CHLORIDE 101 mmol/L (98-107); GLUCOSE 91 mg/dL (75-110); POTASSIUM 3.4 mmol/L (3.6-5.0); TOTAL PROTEIN 5.4 g/dL (6.3-8.2)
[2020-07-06 06:02] LABS: LYMPHOCYTES % (AUTO) 29.8 % (13-45); SEGMENTED NEUTROPHILS % (AUTO) 17.9 % (42-78)
[2020-07-06 06:03] LABS: ABSOLUTE LYMPHOCYTES (AUTO) 0.3 10^3/uL (0.5-4.7); ABSOLUTE MONOCYTES (AUTO) 0.5 10^3/uL (0.1-1.4); ABSOLUTE NEUT (AUTO) 0.2 10^3/uL (1.7-8.2); BASOPHILS % (AUTO) 0.1 % (0-2); EOSINOPHILS % (AUTO) 1.3 % (0-6); MONOCYTES % (AUTO) 50.9 % (3-13); TOTAL CELLS COUNTED % (AUTO) 100 %
[2020-07-06 06:07] LABS: PLATELET COMMENT DECREASED; RBC MORPHOLOGY COMMENT NORMO-CYTIC/CHROMIC
[2020-07-06 06:11] LABS: WHITE BLOOD COUNT 0.9 10^3/uL (4.0-10.5)
[2020-07-06 06:13] LABS: HEMOGLOBIN 7.7 g/dL (13.5-17.0)
[2020-07-06 06:27] LABS: PLATELET COUNT 23 10^3/uL (150-450)
[2020-07-06] MEDS: MORPHINE SULFATE IR 15 MG TABLET PO PRN ×3 (07:07→18:07)
[2020-07-06] MEDS ORDERED: POTASSIUM CHLORIDE 20 MEQ PACKET PO ONE (08:25)
[2020-07-06] MEDS ORDERED: NORMAL SALINE 250 ML IV PRN ×2 (08:55)
--- NOTE | 2020-07-06 08:55 | PDOC PROGRESS REPORT ---
Subjective Progress Note for:: 07/06/20 Subjective:: Patient states that his breathing has improved. He still has pain in his back and ribs. Pain meds are working when he asks for them. His BMs are better. No new complaints. Reason For Visit: HYPOTENSION Physical Exam Vital Signs: Temp Pulse Resp BP Pulse Ox 97.9 F 94 17 114/73 100 07/06/20 08:03 07/06/20 08:03 07/06/20 08:03 07/06/20 08:03 07/06/20 08:03 Intake & Output 07/05/20 07/06/20 07/07/20 06:59 06:59 06:59 Intake Total 2100 3810 Output Total 800 250 Balance 1300 3560 Weight 65.2 kg 103.3 kg General appearance: PRESENT: no acute distress Eye exam: PRESENT: EOMI Respiratory exam: PRESENT: clear to auscultation benedicto, unlabored Cardiovascular exam: PRESENT: RRR Extremities exam: ABSENT: pedal edema Neurological exam: PRESENT: alert, awake Psychiatric exam: PRESENT: appropriate affect Skin exam: PRESENT: normal color Results Laboratory Results: 07/06/20 04:55 07/06/20 04:55 07/06/20 07/06/20 04:55 04:55 WBC 0.9 L* RBC 2.38 L Hgb 7.7 L Hct 22.0 L MCV 92 MCH 32.6 MCHC 35.3 RDW 12.8 Plt Count 23 L* Seg Neutrophils % 17.9 L Sodium 135.3 L Potassium 3.4 L Chloride 101 Carbon Dioxide 24 Anion Gap 10 BUN 8 Creatinine 0.55 Est GFR ( Amer) > 60 Glucose 91 Calcium 7.3 L Magnesium 1.7 Total Bilirubin 0.4 AST 21 Alkaline Phosphatase 93 Total Protein 5.4 L Albumin 2.8 L 07/04/20 07/04/20 07/05/20 12:30 19:29 00:30 Troponin I < 0.012 < 0.012 < 0.012 NT-Pro-B Natriuret Pep 07/05/20 06:30 Troponin I < 0.012 NT-Pro-B Natriuret Pep 308 H Impressions: Chest X-Ray 07/04/20 12:01 IMPRESSION: Persistent right lower lobe mass with surrounding consolidation. Overall aeration is slightly improved from prior study. Abdomen/Pelvis CT 07/04/20 14:23 IMPRESSION: 1. Increased metastatic disease to bone. 2. Apparent small hepatic hemangioma. 3. Partially calcified cystic lesion in the right kidney that is stable. 4. Atherosclerosis. Chest/Abdomen CTA 07/04/20 14:23 IMPRESSION: 1. Right lower lobe pneumonia. 2. No pulmonary embolus. No aortic aneurysm or dissection. 3. Right hilar adenopathy. 4. Metastatic lesions in the spine and ribs. Assessment & Plan - Diagnosis (1) Lung cancer Is this a current diagnosis for this admission?: Yes Plan: All treatment on hold. (2) Pancytopenia Is this a current diagnosis for this admission?: Yes Plan: This is improving. I discussed blood transfusion with the patient. He requests this today. I will arrange. (3) Pneumonia Qualifiers: Pneumonia type: due to unspecified organism Laterality: right Lung location: lower lobe of lung Qualified Code(s): J18.9 - Pneumonia, unspecified organism Is this a current diagnosis for this admission?: Yes Plan: Continue antibiotics. Blood cultures remain negative. If negative for 72 hours, then stop Vanc. If remains afebrile, then change to PO. - Time Time Spent with patient: 15-24 minutes
[2020-07-06] MEDS: CEFEPIME 1 GM/D5W RTU 1 GM/50 ML RTUPB IV SCH ×2 (10:08→22:22)
[2020-07-06] MEDS: FOLIC ACID 1 MG TABLET PO SCH (10:09)
[2020-07-06] MEDS: CHOLECALCIFEROL (D3) 1,000 UNIT (25 MCG) TABLET PO SCH (10:09)
[2020-07-06] MEDS: MORPHINE SULFATE SR 15 MG TABLET PO SCH ×2 (10:52→22:18)
[2020-07-06] MEDS: SENNOSIDES/DOCUSATE 8.6-50 MG 1 EACH TABLET PO SCH ×2 (10:52→18:04)
--- NOTE | 2020-07-06 16:55 | PDOC PROGRESS REPORT ---
Subjective Progress Note for:: 07/06/20 Subjective:: JIN VELAZQUEZ is a 64 year old male history of stage IV lung cancer mets to the spine, failure treatment with Keytruda now on chemotherapy went to see Dr. Murillo and found to have abnormal labs patient was referred to the hospital for further management. Work-up in the ER indicates pancytopenia and a CT scan suggestive of right lower lobe pneumonia. Patient agreed to stay in the hospital for further management. He wants to be a full code at this time. D2 Hospital stay 07/05/20. He was seen and examined at bedside. He feels overall better, had some SOB when he ambulates. Denies any fever, chest pain, cough. WBC count still trending down from 0.8 to 0.6, Hgb 7.4 from 9.4, denies any bleeding. ANC 0.1, platelet 19. Dr. Cueva has seen him who recommend continued abx for neutropenia. No plans for neupogen at this time. Transfuse if actively bleeding. D3 hospital stay 07/06/20. he was seen and examined at bedside. He denied any episodes of fever, no cough, no chest pain, no shortness of breath. He was started on filgastrim yesterday. CBC today showed mild improvement with WBC count of 0.9, hemoglobin 7.7, Platelet count 23, absolute neutrophil count 0.2. He denied any episode of melena, gum bleeding. Dr. Ruff saw him today and ordered 1 unit of packed RBC. Blood cultures negative x48 hours Reason For Visit: HYPOTENSION Physical Exam Vital Signs: Temp Pulse Resp BP Pulse Ox 97.9 F 94 17 114/73 100 07/06/20 08:03 07/06/20 08:03 07/06/20 08:03 07/06/20 08:03 07/06/20 08:03 Intake & Output 07/05/20 07/06/20 07/07/20 06:59 06:59 06:59 Intake Total 2100 3810 50 Output Total 800 250 Balance 1300 3560 50 Weight 65.2 kg 103.3 kg General appearance: PRESENT: no acute distress, cooperative Head exam: PRESENT: atraumatic, normocephalic Eye exam: PRESENT: EOMI, PERRLA Mouth exam: PRESENT: moist Neck exam: PRESENT: full ROM Respiratory exam: PRESENT: clear to auscultation benedicto, symmetrical, unlabored. ABSENT: rales Cardiovascular exam: PRESENT: RRR, +S1, +S2 Pulses: PRESENT: +2 pedal pulses bilateral GI/Abdominal exam: PRESENT: normal bowel sounds, soft. ABSENT: rebound, tenderness Extremities exam: PRESENT: full ROM Musculoskeletal exam: PRESENT: full ROM Neurological exam: PRESENT: alert, awake, oriented to person, oriented to place, oriented to time, oriented to situation Psychiatric exam: PRESENT: normal mood Skin exam: PRESENT: normal color Results Laboratory Results: 07/06/20 04:55 07/06/20 04:55 07/06/20 07/06/20 07/06/20 04:55 04:55 11:40 WBC 0.9 L* RBC 2.38 L Hgb 7.7 L Hct 22.0 L MCV 92 MCH 32.6 MCHC 35.3 RDW 12.8 Plt Count 23 L* Seg Neutrophils % 17.9 L Sodium 135.3 L Potassium 3.4 L Chloride 101 Carbon Dioxide 24 Anion Gap 10 BUN 8 Creatinine 0.55 Est GFR ( Amer) > 60 Glucose 91 Calcium 7.3 L Magnesium 1.7 Total Bilirubin 0.4 AST 21 Alkaline Phosphatase 93 Total Protein 5.4 L Albumin 2.8 L Blood Type O POSITIVE Antibody Screen NEGATIVE 07/04/20 07/04/20 07/05/20 12:30 19:29 00:30 Troponin I < 0.012 < 0.012 < 0.012 NT-Pro-B Natriuret Pep 07/05/20 06:30 Troponin I < 0.012 NT-Pro-B Natriuret Pep 308 H Impressions: Chest X-Ray 07/04/20 12:01 IMPRESSION: Persistent right lower lobe mass with surrounding consolidation. Overall aeration is slightly improved from prior study. Abdomen/Pelvis CT 07/04/20 14:23 IMPRESSION: 1. Increased metastatic disease to bone. 2. Apparent small hepatic hemangioma. 3. Partially calcified cystic lesion in the right kidney that is stable. 4. Atherosclerosis. Chest/Abdomen CTA 07/04/20 14:23 IMPRESSION: 1. Right lower lobe pneumonia. 2. No pulmonary embolus. No aortic aneurysm or dissection. 3. Right hilar adenopathy. 4. Metastatic lesions in the spine and ribs. Assessment and Plan - Diagnosis (1) Pancytopenia Is this a current diagnosis for this admission?: Yes Plan: - Chemo related. received carboplatin and alimta 1 week prior for stage 4 lung ca - WBC 0.8>0.6>0.9 started on filgastrim - Hgb 9.4>7.4>7.7 - Plt 29>19>23 - ANC 0.1>0.2 - on cefepime and vanc for broad spectrum coverage - started on filgastrim - [address] Wilcox -blood cultures negtaive x 48 hrs. Will de-escalate antibiotics as appropriate -We will monitor CBC daily. (2) Neutropenic fever Is this a current diagnosis for this admission?: Yes Plan: -CXR showing RLL Pneumonia. recently received chemo carboplatin and alimta 1 week prior - on cefepime and vanc will de escalate once cultures are out - ANC 0.1>0.2 - (3) Pneumonia Qualifiers: Pneumonia type: due to unspecified organism Laterality: right Lung location: lower lobe of lung Qualified Code(s): J18.9 - Pneumonia, unspecified organism Is this a current diagnosis for this admission?: Yes Plan: - CXR showinf RLL pneumonia - on cefepime and Vanc - blood cultures negative x 2 days - continue O2 support (4) Lung cancer Is this a current diagnosis for this admission?: Yes Plan: - Stage IV lung Ca with bone and liver mets - on Carbo + alimta last dose 1 week prior - follows with Dr. Wilcox (5) Sepsis Qualifiers: Sepsis type: sepsis due to unspecified organism Sepsis acute organ dysfunct ion status: without acute organ dysfunction Qualified Code(s): A41.9 - Sepsis, unspecified organism Is this a current diagnosis for this admission?: Yes Plan: - resolving. came in with hypotension tachycardia and pneumonia - 2/2 Pneumonia - on broad spectrum bx (6) History of pulmonary embolus (PE) Is this a current diagnosis for this admission?: Yes Plan: - has been on xarelto for 3-4 months - will hold for now due to decreased platelets. will not give heparin sq as well for now. Discussed this w/ Dr. Milan - SCD for DVT prophylaxis - Time Time Spent with patient: 25-34 minutes Anticipated Discharge Disposition: Home, Self Care Anticipated Discharge Timeframe: within 48 hours
[2020-07-06] MEDS: NORMAL SALINE 1000 ML 1,000 ML IV PRN (18:10)
[2020-07-06 19:46] LABS: VANCOMYCIN,TROUGH 10.9 ug/mL (5.0-20.0)
[2020-07-07] MEDS: MORPHINE SULFATE IR 15 MG TABLET PO PRN ×3 (04:02→16:22)
[2020-07-07] MEDS: PANTOPRAZOLE SODIUM 40 MG TABLET.DR PO SCH (05:27)
--- NOTE | 2020-07-07 07:33 | PDOC PROGRESS REPORT ---
Subjective Progress Note for:: 07/07/20 Subjective:: Patient states that he feels much stronger today. His pain was worse yesterday. He was given some extra pain medication. He states that he did not get out of bed all day to sit in chair or walk. No other complaints today. Reason For Visit: HYPOTENSION Physical Exam Vital Signs: Temp Pulse Resp BP Pulse Ox 97.6 F 99 16 123/77 98 07/07/20 06:58 07/07/20 06:58 07/07/20 06:58 07/07/20 06:58 07/07/20 06:58 Intake & Output 07/06/20 07/07/20 07/08/20 06:59 06:59 06:59 Intake Total 4810 1888 Output Total 250 Balance 4560 1888 Weight 103.3 kg 65.4 kg General appearance: PRESENT: no acute distress Head exam: PRESENT: normocephalic Respiratory exam: PRESENT: unlabored Extremities exam: ABSENT: pedal edema Musculoskeletal exam: PRESENT: normal inspection Neurological exam: PRESENT: alert, awake Psychiatric exam: PRESENT: appropriate affect Skin exam: PRESENT: normal color Results Laboratory Results: 07/06/20 04:55 07/06/20 04:55 07/06/20 11:40 Blood Type O POSITIVE Antibody Screen NEGATIVE 07/04/20 07/04/20 07/05/20 12:30 19:29 00:30 Troponin I < 0.012 < 0.012 < 0.012 NT-Pro-B Natriuret Pep 07/05/20 06:30 Troponin I < 0.012 NT-Pro-B Natriuret Pep 308 H Impressions: Chest X-Ray 07/04/20 12:01 IMPRESSION: Persistent right lower lobe mass with surrounding consolidation. Overall aeration is slightly improved from prior study. Abdomen/Pelvis CT 07/04/20 14:23 IMPRESSION: 1. Increased metastatic disease to bone. 2. Apparent small hepatic hemangioma. 3. Partially calcified cystic lesion in the right kidney that is stable. 4. Atherosclerosis. Chest/Abdomen CTA 07/04/20 14:23 IMPRESSION: 1. Right lower lobe pneumonia. 2. No pulmonary embolus. No aortic aneurysm or dissection. 3. Right hilar adenopathy. 4. Metastatic lesions in the spine and ribs. Assessment & Plan - Diagnosis (1) Lung cancer Is this a current diagnosis for this admission?: Yes Plan: He is due for chemo next week, but this will be delayed by 1 week. Resume as outpatient. (2) Pancytopenia Is this a current diagnosis for this admission?: Yes Plan: Improving. Await today's CBC results. If ANC >1, then consider changing to PO antibiotics and discharge home. (3) Pneumonia Qualifiers: Pneumonia type: due to unspecified organism Laterality: right Lung location: lower lobe of lung Qualified Code(s): J18.9 - Pneumonia, unspecified organism Is this a current diagnosis for this admission?: Yes Plan: As above. - Time Time Spent with patient: Less than 15 minutes
[2020-07-07] MEDS: MORPHINE SULFATE SR 15 MG TABLET PO SCH (09:29)
[2020-07-07] MEDS: CEFEPIME 1 GM/D5W RTU 1 GM/50 ML RTUPB IV SCH (09:29)
[2020-07-07] MEDS: CHOLECALCIFEROL (D3) 1,000 UNIT (25 MCG) TABLET PO SCH (09:30)
[2020-07-07] MEDS: FOLIC ACID 1 MG TABLET PO SCH (09:30)
[2020-07-07] MEDS: SENNOSIDES/DOCUSATE 8.6-50 MG 1 EACH TABLET PO SCH (09:31)
[2020-07-07 09:55] LABS: HEMATOCRIT 28.4 % (37.9-51.0); MEAN CORPUSCULAR HEMOGLOBIN 31.7 pg (27.0-33.4); MEAN CORPUSCULAR HGB CONC 35.3 g/dL (32.0-36.0); MEAN CORPUSCULAR VOLUME 90 fl (80-97); RED BLOOD COUNT 3.16 10^6/uL (4.35-5.55); RED CELL DISTRIBUTION WIDTH 13.3 % (11.5-14.0)
[2020-07-07 10:07] LABS: ALKALINE PHOSPHATASE 94 U/L (38-126); ANION GAP 8 (5-19); ASPARTATE AMINO TRANSFERASE 22 U/L (17-59); BILIRUBIN,DIRECT 0.2 mg/dL (0.0-0.4); BILIRUBIN,TOTAL 0.5 mg/dL (0.2-1.3); BLOOD UREA NITROGEN 5 mg/dL (7-20); CALCIUM 7.5 mg/dL (8.4-10.2); CARBON DIOXIDE 24 mmol/L (22-30); CHLORIDE 104 mmol/L (98-107); GLUCOSE 99 mg/dL (75-110); TOTAL PROTEIN 5.8 g/dL (6.3-8.2)
[2020-07-07 10:22] LABS: WHITE BLOOD COUNT 4.4 10^3/uL (4.0-10.5)
[2020-07-07 10:23] LABS: PLATELET COUNT 34 10^3/uL (150-450)
[2020-07-07 10:36] LABS: BASOPHILS % (MANUAL) 0 % (0-2); EOSINOPHILS % (MANUAL) 0 % (0-6); TOTAL CELLS COUNTED 100
[2020-07-07 11:22] LABS: ABSOLUTE LYMPHOCYTES# (MANUAL) 0.6 10^3/uL (0.5-4.7); ABSOLUTE MONOCYTES # (MANUAL) 0.4 10^3/uL (0.1-1.4); LYMPHOCYTES % (MANUAL) 12 % (13-45); MONOCYTES % (MANUAL) 10 % (3-13); SEGMENTED NEUTROPHILS % (MAN) 48 % (42-78)
[2020-07-07 11:24] LABS: OVALOCYTES SLIGHT; PLATELET COMMENT DECREASED; POIKILOCYTOSIS SLIGHT; TEAR DROP CELLS SLIGHT
[2020-07-07 11:29] LABS: PATH REVIEW PATHOLOGIST REVIEWED
[2020-07-07 11:30] LABS: BAND NEUTROPHILS % (MANUAL) 23 % (3-5); METAMYELOCYTES % (MANUAL) 3 % (0-1); MYELOCYTES % (MANUAL) 2 % (0)
[2020-07-07 15:53] VITALS: BP 142/86
--- NOTE | 2020-07-07 20:54 | PDOC DISCHARGE SUMMARY ---
Impression - Admit/DC Date/PCP Admission Date/Primary Care Provider: 07/04/20 18:29 HALIMA WILCOX MD Discharge Date: 07/07/20 - Discharge Diagnosis (1) Pancytopenia Is this a current diagnosis for this admission?: Yes (2) Neutropenic fever Is this a current diagnosis for this admission?: Yes (3) Pneumonia Is this a current diagnosis for this admission?: Yes (4) Lung cancer Is this a current diagnosis for this admission?: Yes (5) Sepsis Is this a current diagnosis for this admission?: Yes (6) History of pulmonary embolus (PE) Is this a current diagnosis for this admission?: Yes - Assessment Summary: (1) Pancytopenia Is this a current diagnosis for this admission?: Yes Plan: - Chemo related. received carboplatin and alimta 1 week prior for stage 4 lung ca - WBC 0.8>0.6>0.9 started on filgastrim - Hgb 9.4>7.4>7.7 - Plt 29>19>23 - ANC 0.1>0.2 - on cefepime and vanc for broad spectrum coverage - started on filgastrim - [address] Wilcox -blood cultures negtaive x 48 hrs. Will de-escalate antibiotics as appropriate -We will monitor CBC daily. (2) Neutropenic fever Is this a current diagnosis for this admission?: Yes Plan: -CXR showing RLL Pneumonia. recently received chemo carboplatin and alimta 1 week prior - on cefepime and vanc will de escalate once cultures are out - ANC 0.1>0.2 - (3) Pneumonia Qualifiers: Pneumonia type: due to unspecified organism Laterality: right Lung location: lower lobe of lung Qualified Code(s): J18.9 - Pneumonia, unspecified organism Is this a current diagnosis for this admission?: Yes Plan: - CXR showinf RLL pneumonia - on cefepime and Vanc - blood cultures negative x 2 days - continue O2 support (4) Lung cancer Is this a current diagnosis for this admission?: Yes Plan: - Stage IV lung Ca with bone and liver mets - on Carbo + alimta last dose 1 week prior - follows with Dr. Wilcox (5) Sepsis Qualifiers: Sepsis type: sepsis due to unspecified organism Sepsis acute organ dysfunction status: without acute organ dysfunction Qualified Code(s): A41.9 - Sepsis, unspecified organism Is this a current diagnosis for this admission?: Yes Plan: - resolving. came in with hypotension tachycardia and pneumonia - 2/2 Pneumonia - on broad spectrum bx (6) History of pulmonary embolus (PE) Is this a current diagnosis for this admission?: Yes Plan: - has been on xarelto for 3-4 months - will hold for now due to decreased platelets. will not give heparin sq as well for now. Discussed this w/ Dr. Milan - SCD for DVT prophylaxis - Additional Information Resuscitation Status: Full Code Discharge Diet: As Tolerated Discharge Activity: Activity As Tolerated Referrals: HALIMA WILCOX MD [Primary Care Provider] - 07/19/20 9:00 am Prescriptions: Amoxicillin/Potassium Clav [Augmentin 875-125 Tablet] 1 tab PO Q12 4 Days #8 tablet Ciprofloxacin HCl [Cipro 500 mg Tablet] 500 mg PO BID 4 Days #8 tablet Folic Acid [Folvite 1 mg Tablet] 1 mg PO DAILY 30 Days #30 tablet Home Medications: Amlodipine Besylate [Norvasc 10 mg Tablet] 10 mg PO DAILY #30 tablet 10/17/19 Lisinopril 20 mg PO DAILY #30 tablet 10/17/19 Cholecalciferol (Vitamin D3) [Vitamin D3 1000 Unit Tablet] 1,000 unit PO DAILY 05/13/20 Ondansetron HCl [Zofran] 8 mg PO Q8HP PRN 05/13/20 Rivaroxaban [Xarelto] 20 mg PO DAILY 05/13/20 Megestrol Acetate 20 ml PO DAILY 07/04/20 Morphine Sulfate [Morphabond ER] 15 mg PO Q12 07/04/20 Morphine Sulfate [Morphine Ir 15 mg Tablet] 15 mg PO Q4HP PRN 07/04/20 Sennosides [Senna] 17.2 mg PO BID 07/04/20 Amoxicillin/Potassium Clav [Augmentin 875-125 Tablet] 1 tab PO Q12 4 Days #8 tablet 07/07/20 Ciprofloxacin HCl [Cipro 500 mg Tablet] 500 mg PO BID 4 Days #8 tablet 07/07/20 Folic Acid [Folvite 1 mg Tablet] 1 mg PO DAILY 30 Days #30 tablet 07/07/20 History of Present Illiness History of Present Illness: JIN VELAZQUEZ is a 64 year old male history of stage IV lung cancer mets to the spine, failure treatment with Keytruda now on chemotherapy went to see Dr. Murillo and found to have abnormal labs patient was referred to the hospital for further management. Work-up in the ER indicates pancytopenia and a CT scan suggestive of right lower lobe pneumonia. Patient agreed to stay in the hospital for further management. He wants to be a full code at this time. Hospital Course Hospital Course: D2 Hospital stay 07/05/20. He was seen and examined at bedside. He feels overall better, had some SOB when he ambulates. Denies any fever, chest pain, cough. WBC count still trending down from 0.8 to 0.6, Hgb 7.4 from 9.4, denies any bleeding. ANC 0.1, platelet 19. Dr. Cueva has seen him who recommend continued abx for neutropenia. No plans for neupogen at this time. Transfuse if actively bleeding. D3 hospital stay 07/06/20. he was seen and examined at bedside. He denied any episodes of fever, no cough, no chest pain, no shortness of breath. He was started on filgastrim yesterday. CBC today showed mild improvement with WBC count of 0.9, hemoglobin 7.7, Platelet count 23, absolute neutrophil count 0.2. He denied any episode of melena, gum bleeding. Dr. Ruff saw him today and ordered 1 unit of packed RBC. Blood cultures negative x48 hours D4 Hospital stay. 07/07/20. He was seen and examined at bedside. Repeat CBC showed a WBC 4.4, Hgb 10, Plt 34, ANC 3.3. He remained afebrile with good appetite. Dr. Wilcox updated and was agreeable sending him home. He was discharged on oral abx to complete 7 days of treatment. Physical Exam Vital Signs: Temp Pulse Resp BP Pulse Ox 97.7 F 114 H 16 142/86 H 99 07/07/20 15:48 07/07/20 15:48 07/07/20 15:48 07/07/20 15:48 07/07/20 15:48 Intake & Output 07/06/20 07/07/20 07/08/20 06:59 06:59 06:59 Intake Total 4810 1938 1180 Output Total 250 Balance 4560 1938 1180 Weight 103.3 kg 65.4 kg General appearance: PRESENT: no acute distress, cooperative Head exam: PRESENT: atraumatic, normocephalic Eye exam: PRESENT: EOMI, PERRLA Mouth exam: PRESENT: moist Neck exam: PRESENT: full ROM Respiratory exam: PRESENT: clear to auscultation benedicto, symmetrical, unlabored. ABSENT: rales Cardiovascular exam: PRESENT: RRR, +S1, +S2 GI/Abdominal exam: PRESENT: normal bowel sounds, soft. ABSENT: rebound, tenderness Extremities exam: PRESENT: full ROM Musculoskeletal exam: PRESENT: full ROM Neurological exam: PRESENT: alert, awake, oriented to person, oriented to place, oriented to time, oriented to situation Skin exam: PRESENT: normal color Results Laboratory Results: WBC 4.4 10^3/uL (4.0-10.5) D 07/07/20 09:35 RBC 3.16 10^6/uL (4.35-5.55) L 07/07/20 09:35 Hgb 10.0 g/dL (13.5-17.0) L D 07/07/20 09:35 Hct 28.4 % (37.9-51.0) L 07/07/20 09:35 MCV 90 fl (80-97) 07/07/20 09:35 MCH 31.7 pg (27.0-33.4) 07/07/20 09:35 MCHC 35.3 g/dL (32.0-36.0) 07/07/20 09:35 RDW 13.3 % (11.5-14.0) 07/07/20 09:35 Plt Count 34 10^3/uL (150-450) L 07/07/20 09:35 Lymph % (Auto) Not Reportable 07/07/20 09:35 [place] % (Auto) Not Reportable 07/07/20 09:35 Eos % (Auto) Not Reportable 07/07/20 09:35 Baso % (Auto) Not Reportable 07/07/20 09:35 Absolute Neuts (auto) Not Reportable 07/07/20 09:35 Absolute Lymphs (auto) Not Reportable 07/07/20 09:35 Absolute Monos (auto) Not Reportable 07/07/20 09:35 Absolute Eos (auto) Not Reportable 07/07/20 09:35 Absolute Basos (auto) Not Reportable 07/07/20 09:35 Total Counted 100 07/07/20 09:35 Seg Neutrophils % Not Reportable 07/07/20 09:35 Seg Neuts % (Manual) 48 % (42-78) 07/07/20 09:35 Band Neutrophils % 23 % (3-5) H 07/07/20 09:35 Lymphocytes % (Manual) 12 % (13-45) L 07/07/20 09:35 Atypical Lymphs % 2 % (0) 07/07/20 09:35 Monocytes % (Manual) 10 % (3-13) 07/07/20 09:35 Eosinophils % (Manual) 0 % (0-6) 07/07/20 09:35 Basophils % (Manual) 0 % (0-2) 07/07/20 09:35 Metamyelocytes % 3 % (0-1) H 07/07/20 09:35 Myelocytes % 2 % (0) H 07/07/20 09:35 Promyelocytes % Cancelled 07/06/20 04:55 Immature Leukocytes % Cancelled 07/06/20 04:55 Abs Neuts (Manual) 3.3 10^3/uL (1.7-8.2) 07/07/20 09:35 Abs Lymphs (Manual) 0.6 10^3/uL (0.5-4.7) 07/07/20 09:35 Abs Monocytes (Manual) 0.4 10^3/uL (0.1-1.4) 07/07/20 09:35 Absolute Eos (Manual) 0.0 10^3/uL (0.0-0.6) 07/07/20 09:35 Abs Basophils (Manual) 0.0 10^3/uL (0.0-0.2) 07/07/20 09:35 Nucleated RBCs Cancelled 07/06/20 04:55 Differential Comment Cancelled 07/06/20 04:55 Hypersegmented Neuts Cancelled 07/06/20 04:55 Smudge Cells Cancelled 07/06/20 04:55 Toxic Granulation Cancelled 07/06/20 04:55 Toxic Vacuolation Cancelled 07/06/20 04:55 Dohle Bodies Cancelled 07/06/20 04:55 Dmitriy Rods Cancelled 07/06/20 04:55 WBC Morphology Comment Cancelled 07/06/20 04:55 Clumped Platelets Cancelled 07/06/20 04:55 Large Platelets Cancelled 07/06/20 04:55 Giant Platelets Cancelled 07/06/20 04:55 Platelet Comment DECREASED 07/07/20 09:35 Polychromasia Cancelled 07/06/20 04:55 Hypochromasia Cancelled 07/06/20 04:55 Poikilocytosis SLIGHT 07/07/20 09:35 Basophilic Stippling Cancelled 07/06/20 04:55 Anisocytosis Cancelled 07/06/20 04:55 Microcytosis Cancelled 07/06/20 04:55 Macrocytosis Cancelled 07/06/20 04:55 Spherocytes Cancelled 07/06/20 04:55 Pappenheimer Bodies Cancelled 07/06/20 04:55 Sickle Cells Cancelled 07/06/20 04:55 Target Cells Cancelled 07/06/20 04:55 Tear Drop Cells SLIGHT 07/07/20 09:35 Ovalocytes SLIGHT 07/07/20 09:35 Stomatocytes Cancelled 07/06/20 04:55 Helmet Cells Cancelled 07/06/20 04:55 Salas-Rodman Bodies Cancelled 07/06/20 04:55 Tricia Cells Cancelled 07/06/20 04:55 Acanthocytes (Spur) Cancelled 07/06/20 04:55 Rouleaux Cancelled 07/06/20 04:55 Schistocytes Cancelled 07/06/20 04:55 RBC Morph Comment NORMO-CYTIC/CHROMIC 07/06/20 04:55 PT 14.0 SEC (11.4-15.4) 07/05/20 06:30 INR 1.05 07/05/20 06:30 VBG pH 7.32 (7.30-7.42) 07/04/20 12:30 VBG pCO2 47.2 mmHg (35-63) 07/04/20 12:30 VBG HCO3 23.9 mmol/L (20-32) 07/04/20 12:30 VBG Base Excess -2.6 mmol/L 07/04/20 12:30 Sodium 136.2 mmol/L (137-145) L 07/07/20 09:35 Potassium 4.0 mmol/L (3.6-5.0) 07/07/20 09:35 Chloride 104 mmol/L (98-107) 07/07/20 09:35 Carbon Dioxide 24 mmol/L (22-30) 07/07/20 09:35 Anion Gap 8 (5-19) 07/07/20 09:35 BUN 5 mg/dL (7-20) L 07/07/20 09:35 Creatinine 0.52 mg/dL (0.52-1.25) 07/07/20 09:35 Est GFR ( Amer) > 60 (>60) 07/07/20 09:35 Est GFR (MDRD) Non-Af > 60 (>60) 07/07/20 09:35 Glucose 99 mg/dL (75-110) 07/07/20 09:35 Hemoglobin A1c % 4.7 % (4.7-6.0) 07/05/20 06:30 Lactic Acid 1.6 mmol/L (0.7-2.1) 07/04/20 19:29 Calcium 7.5 mg/dL (8.4-10.2) L 07/07/20 09:35 Magnesium 1.7 mg/dL (1.6-2.3) 07/06/20 04:55 Total Bilirubin 0.5 mg/dL (0.2-1.3) 07/07/20 09:35 Direct Bilirubin 0.2 mg/dL (0.0-0.4) 07/07/20 09:35 Neonat Total Bilirubin Not Reportable 07/07/20 09:35 Neonat Direct Bilirubin Not Reportable 07/07/20 09:35 Neonat Indirect Bili Not Reportable 07/07/20 09:35 AST 22 U/L (17-59) 07/07/20 09:35 ALT 14 U/L (<50) 07/07/20 09:35 Alkaline Phosphatase 94 U/L (38-126) 07/07/20 09:35 Troponin I < 0.012 ng/mL 07/05/20 06:30 NT-Pro-B Natriuret Pep 308 pg/mL (<125) H 07/05/20 06:30 Total Protein 5.8 g/dL (6.3-8.2) L 07/07/20 09:35 Albumin 3.0 g/dL (3.5-5.0) L 07/07/20 09:35 Triglycerides 110 mg/dL (<150) 07/05/20 06:30 Cholesterol 99.75 mg/dL (0-200) 07/05/20 06:30 LDL Cholesterol Direct 56 mg/dL (<100) 07/05/20 06:30 VLDL Cholesterol 22.0 mg/dL (10-31) 07/05/20 06:30 HDL Cholesterol 21 mg/dL (>40) L 07/05/20 06:30 TSH 1.16 uIU/mL (0.47-4.68) 07/05/20 06:30 Urine Color YELLOW 07/04/20 22:25 Urine Appearance CLEAR 07/04/20 22:25 Urine pH 5.0 (5.0-9.0) 07/04/20 22:25 Ur Specific [place] 1.038 07/04/20 22:25 Urine Protein NEGATIVE mg/dL (NEGATIVE) 07/04/20 22:25 Urine Glucose (UA) NEGATIVE mg/dL (NEGATIVE) 07/04/20 22:25 Urine Ketones TRACE mg/dL (NEGATIVE) H 07/04/20 22:25 Urine Blood NEGATIVE (NEGATIVE) 07/04/20 22:25 Urine Nitrite (Reflex) NEGATIVE (NEGATIVE) 07/04/20 22:25 Urine Bilirubin NEGATIVE (NEGATIVE) 07/04/20 22:25 Urine Urobilinogen NEGATIVE mg/dL (<2.0) 07/04/20 22:25 Leukocyte Esterase Rfl NEGATIVE (NEGATIVE) 07/04/20 22:25 Urine RBC (Auto) 3 /HPF 07/04/20 22:25 Urine WBC (Reflex) 3 /HPF 07/04/20 22:25 Urine Mucus (Auto) RARE /LPF 07/04/20 22:25 Urine Ascorbic Acid NEGATIVE (NEGATIVE) 07/04/20 22:25 Time Trough Drawn 1902 07/06/20 19:02 Vancomycin Trough 10.9 ug/mL (5.0-20.0) 07/06/20 19:02 Slides for Path Review PATHOLOGIST REVIEWED 07/07/20 09:35 Blood Type O POSITIVE 07/06/20 11:40 Blood Type Confirm O POSITIVE 07/06/20 11:48 Antibody Screen NEGATIVE 07/06/20 11:40 Crossmatch See Detail 07/06/20 11:40 07/04/20 07/04/20 07/05/20 12:30 19:29 00:30 Troponin I < 0.012 < 0.012 < 0.012 NT-Pro-B Natriuret Pep 07/05/20 06:30 Troponin I < 0.012 NT-Pro-B Natriuret Pep 308 H Impressions: Chest X-Ray 07/04/20 12:01 IMPRESSION: Persistent right lower lobe mass with surrounding consolidation. Overall aeration is slightly improved from prior study. Abdomen/Pelvis CT 07/04/20 14:23 IMPRESSION: 1. Increased metastatic disease to bone. 2. Apparent small hepatic hemangioma. 3. Partially calcified cystic lesion in the right kidney that is stable. 4. Atherosclerosis. Chest/Abdomen CTA 07/04/20 14:23 IMPRESSION: 1. Right lower lobe pneumonia. 2. No pulmonary embolus. No aortic aneurysm or dissection. 3. Right hilar adenopathy. 4. Metastatic lesions in the spine and ribs. Plan Health Concerns: Pancytopenia - improved with filgastrim. Follow up with oncology to discuss future chemo plans Plan of Treatment: To complete 4 more days of abx - follow up with Dr. Wilcox to discuss future chemo plans Time Spent: Less than 30 Minutes Stroke Is this a Stroke Patient?: No Acute Heart Failure Is this a Heart Failure Patient?: No
== END 2020-07-07 16:36 | disposition home or self-care (01) | DRG 871 ==
LOC: ER 11:57 → EH 18:29 → 3W 20:45
PROVIDERS: ADMIT Internal Medicine; ATTEND Internal Medicine
PROC: 30233N1 Transfusion of Nonautologous Red Blood Cells into Peripheral Vein, Percutaneous Approach (ICD-10-PCS; principal; 2020-07-06)
DX: A41.9 Sepsis, unspecified organism (principal); D61.810 Antineoplastic chemotherapy induced pancytopenia; J18.9 Pneumonia, unspecified organism; C34.90 Malignant neoplasm of unspecified part of unspecified bronchus or lung; C79.51 Secondary malignant neoplasm of bone; C78.7 Secondary malignant neoplasm of liver and intrahepatic bile duct; J44.9 Chronic obstructive pulmonary disease, unspecified; T45.1X5A Adverse effect of antineoplastic and immunosuppressive drugs, initial encounter; R50.81 Fever presenting with conditions classified elsewhere; M19.90 Unspecified osteoarthritis, unspecified site; Z90.49 Acquired absence of other specified parts of digestive tract; Z87.891 Personal history of nicotine dependence; Z79.899 Other long term (current) drug therapy; Z79.01 Long term (current) use of anticoagulants; Z86.711 Personal history of pulmonary embolism
CPT/HCPCS: 36415; 36430; 71045; 71275; 74177; 80053; 80061; 80202; 81001; 82803; 83036; 83605; 83735; 83880; 84443; 84484; 85025; 85610; 86850; 86900; 86901; 86920; 87040; 93005; 93010; 96361; 96365; 99285; J0610; J0456; J0692; J1642; J2270; J3370; J3475; J3490; J7030; J7050; J7060; P9016; Q5110